=== PATIENT | male | born 1940 | race Caucasian/White ===

== ENCOUNTER → 2023-02-15 | Outpatient (CLI) | payer MEDICARE, BC ==
--- NOTE | 2023-02-15 12:29 | CT ---
EXAMINATION TYPE: CT left knee - [facility] Protocol DATE OF EXAM: 02/15/2023 COMPARISON: None HISTORY: 82-year-old male pre-op left total knee TECHNIQUE: CT for surgical planning purposes. Scanning through the pelvis, left knee, and both ankles with coronal and sagittal reconstructions. CT DLP: 720 mGycm Automated exposure control for dose reduction was used. FINDINGS: Partially visualized fatty umbilical hernia. There is herniation of the anterior dome of the bladder into an indirect right inguinal hernia. Prostatomegaly a 6.1 cm. Mild degenerative change of both hips. Osteopenia. Suspected left L5 hemisacralization. Moderate joint effusion at the knee. Tricompartmental osteoarthrosis. Posterior loose body measuring up to 1.9 cm. There is a Gagnon's cyst measuring nearly 5 cm and containing a 1 cm loose body. General ized soft tissue swelling. IMPRESSION: IMAGING FOR SURGICAL PLANNING PURPOSES. ADVANCED TRICOMPARTMENTAL OSTEOARTHROSIS LEFT KNEE. A 5 CM BA KER CYST CONTAINING A 1 CM LOOSE BODY. 2. NOTE AN INCIDENTAL RIGHT-SIDED INDIRECT INGUINAL HERNIA CONTAINING A 5 TO 6 CM LENGTH OF RIGHT-SASCHA ED BLADDER FUNDUS. PROSTATOMEGALY. SUSPECT A LEFT L5 HEMISACRALIZATION.
== END | disposition home or self-care (01) ==
LOC: RADCTMAIN 10:39
PROVIDERS: ATTEND Orthopaedic Surgery
DX: Z01.818 Encounter for other preprocedural examination (principal); M17.12 Unilateral primary osteoarthritis, left knee; M71.22 Synovial cyst of popliteal space [Baker], left knee; K40.90 Unilateral inguinal hernia, without obstruction or gangrene, not specified as recurrent; N40.0 Benign prostatic hyperplasia without lower urinary tract symptoms

== ENCOUNTER → 2023-02-15 | Outpatient (CLI) | payer MEDICARE, BC ==
[2023-02-15 13:56] LABS: INR 1.1 (<1.2); Prothrombin Time 11.1 sec (9.0-12.0)
[2023-02-15 16:51] LABS: Appearance,Urine Clear (Clear); Bilirubin,Urine Negative (Negative); Blood,Urine Negative (Negative); Color,Urine Yellow (Yellow); Ketones,Urine Negative (Negative); Nitrite,Urine Negative (Negative); PH, Urine 7.5; Specific Gravity,Urine 1.012 (1.001-1.030); Urobilinogen,Urine 0.2
[2023-02-15 21:45] LABS: HCT 41.9 % (39.6-50.0); HGB 13.3 d/dL (12.0-15.0); MCH 30.7 pg (27.0-32.0); MCHC 31.7 d/dL (32.0-37.0); MCV 96.8 FL (80.0-97.0); Mean Platelet Volume 10.7 FL (9.5-12.2); NRBC Per 100 WBC 0 X 10*3/uL (0.00-0.01); Platelet Count 246 X 10*3/uL (140-440); RBC 4.33 X 10*6/uL (4.40-5.60); RDW 14.4 % (11.5-14.5); WBC 7.25 X 10*3/uL (4.50-10.00)
[2023-02-16 02:36] LABS: ALT 26 U/L (10-49); AST 24 U/L (14-35); Albumin 4.1 d/dL (3.8-4.9); Albumin/Globulin Ratio 1.86 Ratio (1.60-3.17); Alkaline Phosphatase 75 U/L (41-126); Calcium 9.5 mg/dL (8.7-10.3); Carbon Dioxide 27.7 mmol/L (21.6-31.8); Chloride 102 mmol/L (96-109); Globulin 2.2 d/dL (1.6-3.3); Glucose 83 mg/dL (70-110); Sodium 140 mmol/L (135-145); Total Bilirubin 0.6 mg/dL (0.3-1.2); Total Protein 6.3 d/dL (6.2-8.2)
== END | disposition home or self-care (01) ==
LOC: LABPAT 11:04
PROVIDERS: ATTEND Orthopaedic Surgery
DX: Z01.812 Encounter for preprocedural laboratory examination (principal); M17.12 Unilateral primary osteoarthritis, left knee; I45.10 Unspecified right bundle-branch block; R00.1 Bradycardia, unspecified; R94.31 Abnormal electrocardiogram [ECG] [EKG]
CPT/HCPCS: 80053; 81003; 85027; 85610; 85730; 87070; 93005

== ENCOUNTER 2023-02-27 11:13 | Inpatient (IN) | payer MEDICARE, BC ==
[~2023-02-27 11:13] MED LIST: ACETAMINOPHEN TAB 500 MG TAB PO PRN; DEXAMETHASONE SOD PHOSPHATE 10 MG/ML 1 ML VIAL IV PRN; DOCUSATE 100 MG CAP PO PRN; FAMOTIDINE 20 MG/2 ML VIAL IVP PRN; HYDROmorphone 0.5 MG/0.5 ML SYRINGE IVP PRN; KETOROLAC 15 MG/ML 1 ML VIAL IVP PRN; ONDANSETRON 4 MG/2 ML VIAL IVP PRN; ROPIVACAINE/EPI/CLONIDINE/KET 50 ML SYRINGE MISCELLANE PRN; TRANEXAMIC 1,000 MG/100ML-NACL 1,000 MG in SALINE 1 100ML.BAG IV PRN; TRANEXAMIC 1,000 MG/100ML-NACL 1,000 MG in SALINE 1 100ML.BAG IVPB PRN; oxyCODONE ER 10 MG TAB.ER.12H PO PRN
[2023-02-27] MEDS: LACTATED RINGERS 1,000 ML IV SCH ×2 (11:55→18:19)
[2023-02-27] MEDS ORDERED: METOCLOPRAMIDE 5 MG/ML 2 ML VIAL ONE (12:00)
[2023-02-27] MEDS ORDERED: DEXAMETHASONE SOD PHOSPHATE 4 MG/ML 1 ML VIAL IVP ONE (12:28)
[2023-02-27] MEDS ORDERED: MIDAZOLAM 2 MG/2 ML VIAL IV ONE (12:35)
[2023-02-27] MEDS ORDERED: KETAMINE 10 MG/ML 20 ML VIAL ONE (13:20)
[2023-02-27] MEDS ORDERED: TRANEXAMIC 1,000 MG/100ML-NACL PREMIX BAG ONE (13:20)
[2023-02-27] MEDS ORDERED: GLYCOPYRROLATE 0.2 MG/ML 2 ML VIAL ONE (13:20)
[2023-02-27] MEDS ORDERED: MIDAZOLAM 2 MG/2 ML VIAL ONE (13:20)
[2023-02-27] MEDS ORDERED: fentaNYL (PF) 50 MCG/ML 2 ML AMP ONE (13:20)
[2023-02-27] MEDS ORDERED: DEXAMETHASONE SOD PHOSPHATE 4 MG/ML 1 ML VIAL ONE (13:20)
[2023-02-27] MEDS ORDERED: ROPIVACAINE 5 MG/ML 30 ML VIAL ONE (13:20)
[2023-02-27] MEDS ORDERED: HYDROcodone/APAP 5-325MG 1 EACH TAB PO PRN (16:09)
[2023-02-27] MEDS ORDERED: NALOXONE 0.4 MG/ML 1 ML VIAL IV PRN (16:09)
[2023-02-27] MEDS ORDERED: HYDROmorphone 0.5 MG/0.5 ML SYRINGE IVP PRN ×2 (16:09)
[2023-02-27] MEDS ORDERED: ONDANSETRON 4 MG/2 ML VIAL IVP PRN (16:09)
--- NOTE | 2023-02-27 16:14 | P.OP ---
Date of Procedure: 02/27/23 Preoperative Diagnosis: Severe left knee osteoarthritis Postoperative Diagnosis: Same Procedure(s) Performed: Left total knee arthroplasty Implants: 1. Ballinger Triathlon CR Femur Size #5 2. Ballinger Triathlon [place] Tibial Base Size #4 3. Ballinger Triathlon CS poly Size #9 4. Richard Triathlon all poly patella, Size #32 Anesthesia: regional, spinal Surgeon: Armin Guo Latex Dipper #1: Mary Daniel Estimated Blood Loss (ml): 100 IV fluids (ml): 900 Pathology: none sent Condition: stable Disposition: PACU Indications for Procedure: I met with the patient preoperatively in the office setting and discussed treatment of their symptomatic knee arthritis. They failed a long course of nonsurgical treatment and elected to proceed with an elective total knee replacement. I discussed the potential risks and complications at length and gave them ample time to ask questions. Risks discussed included: risks from anesthesia, superficial site surgical infection, acute and/or chronic periprosth etic joint infection, delayed wound healing, drainage, wound necrosis, instability, stiffness, stiffness requiring manipulation and/or revision surgery, damage to local blood vessels or nerves, aseptic loosening of the implants, extensor mechanism issues including disruption, patellar maltracking, avascular necrosis etc., continued or worsened knee pain, generalized dissatisfaction with surgical outcome, need for revision surgery, an inability to regain preinjury level of function, DVT, PE, other medical complications, and possibly loss of life or limb. The patient voiced their understanding that while these are the most common complications other less common complications are possible. They provided both their verbal and written consent to go forward with surgery. Description of Procedure: The patient was identified in preoperative holding and the correct operative extremity was verified and marked with a marker. I reviewed the consent form with the patient at length. All of their questions were answered. The patient was given a block by anesthesia. They were then brought back to the operating room. They were transferred onto the operating room table where a general anesthetic, preoperative antibiotics, and tranexamic acid were administered by anesthesia. A tourniquet was applied to the proximal aspect of the operative extremity. The contralateral extremity was padded under the heel and secured to the operating room table with a nonsterile blue towel and tape. The ipsilateral arm was carefully draped across the patient's chest and secured with a pillow and foam. A post was applied over the lateral aspect of the ipsilateral thigh and a bolster was placed under the ipsilateral foot. I verified that the operative extremity was stable and the knee was flexed to 90. The operative extremity was then placed in a leg torres, nonsterile drapes were applied, and the extremity was prepped and draped sterilely in the standard sterile fashion. Prior to starting surgery timeout was performed identifying the correct patient, operative extremity, and procedure. The leg was then elevated, exsanguinated with an Esmarch bandage, and the tourniquet was inflated. An anterior midline incision was made sharply with a scalpel. Once I had dissected deep to the superficial fascial layer medial and lateral flaps were elevated. A medial parapatellar arthrotomy was created. Upon opening the knee joint there were diffuse arthritic changes in all 3 compartments. The anterior horn of the medial meniscus were sharply released and a medial release was performed around the posterior medial corner of the knee to facilitate retractor placement. The fat pad was excised with electrocautery. The patella was found to be severely arthritic and a provisional cut was made with a sagittal saw to facilitate mobilization of the extensor mechanism during the procedure. Remnants of the ACL and PCL were then excised from the notch. 4 mm pins were then placed within the incision in the medial distal femur and proximal tibia. Arrays were applied to the pins and I verified they were completely tightened. The knee was then registered with the [employer] robot and manipulations in implant position were made to balance the knee and opitmize implant position. Using the Miles robotic saw all cuts were made in accordance with our plan. After all bony fragments had been removed the cuts were verified with the planar probe. The tibia was then subluxed forward and sized. The knee was brought into flexion and a lamina commission clerk was placed to allow removal of the meniscal remnants both medially and laterally as well as posterior osteophytes. Local anesthetic was then infiltrated around the joint capsule. Trial implants were then placed within the knee. Range of motion and collateral ligament tension was then evaluated. Adjustments in implant size and position were then made accordingly. Once the knee was felt to be appropriately balanced the Miles pins were removed. The patella was then recut, sized, and punched. A trial patellar button was then placed. With the trial components in place, the patella tracked midline. The femur was then drilled and the trial component removed. The trial tibial component was then appropriately rotated, pinned, and prepared for the keel. All trial components were then removed from the knee. The knee was thoroughly irrigated with pulsatile lavage. Cement was prepared via vacuum mixing in a bowl on the back table. I then hand pressurized cement into the femur and tibia and placed the implants beginning with the tibial base tray and poly liner, femoral component, and finally the patellar button. All extruded cement was removed including from the pin sites. Once the cement had hardened the knee was evaluated one final time with the final polyethylene liner in place. The knee had full extension and flexion and felt stable to varus and valgus stress throughout the arc of motion. The tourniquet was released and with the tourniquet down the patella tracked midline. All bleeders were controlled with electrocautery. The knee was then soaked for 3 minutes with a dilute Betadine s oak. The knee was thoroughly irrigated using 3 L of sterile saline and pulsatile lavage. A deep drain was placed. The extensor mechanism was then reapproximated using pop off Vicryl sutures followed by a running barbed suture. The knee was then closed in layers with a 0 strata fix for the deep fascial layer, 2-0 strata fix for the superficial subcutaneous layer and Monocryl and Steri-Strips for the skin. A sterile dressing and drain sponge were applied. I verified that all instrument, sponge, and sharp counts were correct. The patient was then transferred off the operating room table, extubated, and brought to recovery having tolerated the procedure well. Mary Daniel PA-C was required as a skilled surveyor instrument assistant due to the complexity of the procedure for patient positioning, draping, retraction, placement of hardware, and closure of wound. PLAN: The patient can weight-bear as tolerated on the operative extremity. DVT prophylaxis with aspirin 81 mg twice a day based on preoperative risk stratification. Follow-up in the office in 2 weeks for wound check and x-rays of the knee including an AP and lateral.
--- NOTE | 2023-02-27 16:32 | XR ---
EXAMINATION TYPE: XR knee limited LT DATE OF EXAM: 02/27/2023 COMPARISON: NONE HISTORY: 82-year-old male evaluation for postoperative abnormality in alignment TECHNIQUE: 2 views FINDINGS: Images show placement of left total knee arthroplasty. Both distal femoral and proximal tib ial components of the prosthesis are well seated without periprosthetic fracture. Alignment grossly a natomic. Anterior soft tissue swelling with soft tissue air as well as intra-articular air related to recent operation. Surgical drain in place. IMPRESSION: Uncomplicated postoperative appearance left total knee arthroplasty.
[2023-02-27] MEDS: ASPIRIN 81 MG PO SCH (20:12)
[2023-02-27] MEDS: lisinopriL 10 MG TAB PO SCH (20:12)
[2023-02-27] MEDS: carvediloL 6.25 MG TAB PO SCH (20:12)
[2023-02-27] MEDS: SENNOSIDES-DOCUSATE SODIUM 1 EACH TAB PO SCH (20:12)
[2023-02-27] MEDS: TAMSULOSIN 0.4 MG CAP.ER.24H PO SCH (20:12)
[2023-02-27] MEDS: CITALOPRAM HYDROBROMIDE 20 MG TAB PO SCH (20:12)
--- NOTE | 2023-02-27 20:39 | P.ANPRN ---
Procedure Note - Anesthesia - Nerve Block Performed Left Adductor Canal Single Time Out Performed: Yes Date of Procedure: 02/27/23 Procedure Start Time: 12:34 Procedure Stop Time: 12:40 Location of Patient: PreOp Indication: Acute Post-Operative Pain, Requested by Surgeon Sedation Type: Sedate with meaningful contact maintained Preparation: Sterile Prep Position: Supine Needle Types: Pajunk Needle Gauge: 21 Ultrasound used to visualize needle placement: Yes Ultrasound used to observe medication spread: Yes Blood Aspirated: No Resistance on Injection: Normal Image Stored and Saved: Yes Events: Uneventful and Well Tolerated (Ropivacaine 0.5% 20 mL plus dexamethasone 4 mg)
--- NOTE | 2023-02-27 20:41 | P.ANPRN ---
Procedure Note - Anesthesia - Nerve Block Performed Left iPack Single Time Out Performed: Yes Date of Procedure: 02/27/23 Procedure Start Time: 12:41 Procedure Stop Time: 12:44 Location of Patient: PreOp Indication: Acute Post-Operative Pain, Requested by Surgeon Sedation Type: Sedate with meaningful contact maintained Preparation: Sterile Prep Position: Supine Needle Types: Pajunk Needle Gauge: 21 Ultrasound used to visualize needle placement: Yes Ultrasound used to observe medication spread: Yes Blood Aspirated: No Pain Paresthesia on Injection Noted: No Resistance on Injection: Normal Image Stored and Saved: Yes Events: Uneventful and Well Tolerated (Ropivacaine 0.5% 20 mL plus dexamethasone 4 mg)
[2023-02-28] MEDS: LACTATED RINGERS 1,000 ML IV SCH ×3 (02:47→12:37)
[2023-02-28] MEDS: HYDROcodone/APAP 5-325MG 1 EACH TAB PO PRN ×3 (07:53→22:34)
[2023-02-28] MEDS: ASPIRIN 81 MG PO SCH ×2 (07:55→21:13)
[2023-02-28] MEDS: MULTIVITAMINS, THERA 1 EACH TAB PO SCH (07:55)
[2023-02-28] MEDS: lisinopriL 10 MG TAB PO SCH (07:55)
[2023-02-28] MEDS: carvediloL 6.25 MG TAB PO SCH ×2 (07:55→17:15)
[2023-02-28] MEDS: CITALOPRAM HYDROBROMIDE 20 MG TAB PO SCH (07:55)
[2023-02-28] MEDS: PANTOPRAZOLE 40 MG TABLET PO SCH (07:55)
[2023-02-28] MEDS: TAMSULOSIN 0.4 MG CAP.ER.24H PO SCH (07:55)
--- NOTE | 2023-02-28 08:30 | P.PN ---
Subjective Progress Note Date: 02/28/23 This patient is an 82- year old male who is status-post left total knee arthroplasty on 02/27/23. Today its post-operative day #1. Patient is examined bedside with Dr. Guo this morning. Patient is doing well and he states pain in the left knee is well- controlled at this time. He is planning to discharge to rehab. No complaints. Vital signs stable. Objective - Vital Signs Vital signs: Vital Signs Temp 98.0 F 02/28/23 07:18 Pulse 86 02/28/23 07:18 Resp 18 02/28/23 07:18 BP 146/77 02/28/23 07:18 Pulse Ox 95 02/28/23 07:18 FiO2 Intake & Output 02/27/23 02/28/23 02/28/23 18:59 06:59 18:59 Intake Total 950 650 Output Total 100 430 Balance 850 220 Weight 77 kg Intake: IV 950 Intake, IV Titration 650 Amount Lactated Ringers 1,000 ml 600 @ 100 mls/hr IV .Q10H [facility] Rx#:[id number] ceFAZolin 2 gm In Sodium 50 Chloride 0.9% 50 ml @ 100 mls/hr IVPB Q8HR [facility] Rx# :[id number] Output: Drainage 230 Left Knee 230 Urine 200 Estimated Blood Loss 100 Other: # Voids 0 - Exam On examination, patient is sitting up at bedside in no apparent distress. He is alert and orientated x3. On inspection of the left knee, there is a clean, dry, intact surgical dressing in place with no bleeding or drainage through the dressing. Motor and sensory function intact left lower extremity. LLE warm and well perfused. Calf soft and nontender. Hemovac drain is removed during examination. Assessment and Plan Assessment: Status-post left total knee arthroplasty on 02/27/23. Post-op day #1. Plan: - Weight bear to tolerance on operative extremity with a walker. - Keep operative dressing in place. Do not remove. - Ice to operative knee for swelling. - Physical therapy for gait and balance training. - Pain medication as needed. Aspirin 81mg BID for DVT prophylaxis. - 2 doses post-op IV antibiotics. - Internal medicine for bryson-op medical management. - Case management consulted for discharge planning. Patient would like to discharge to subacute rehab.
[2023-02-28 11:15] LABS: Basophils # (A) 0.02 X 10*3/uL (0.00-0.10); Basophils % (A) 0.1 %; Eosinophils # (A) 0.01 X 10*3/uL (0.04-0.35); Eosinophils % (A) 0.1 %; HGB 12.4 d/dL (12.0-15.0); Lymphocytes % (A) 3.8 %; MCH 31.7 pg (27.0-32.0); MCHC 33.5 d/dL (32.0-37.0); MCV 94.6 FL (80.0-97.0); Mean Platelet Volume 10.7 FL (9.5-12.2); Monocytes # (A) 1.22 X 10*3/uL (0.20-1.00); Monocytes % (A) 6.7 %; NRBC Per 100 WBC 0 X 10*3/uL (0.00-0.01); Neutrophils # (A) 16.24 X 10*3/uL (1.80-7.70); Neutrophils % (A) 88.8 %; Platelet Count 240 X 10*3/uL (140-440); RBC 3.91 X 10*6/uL (4.40-5.60); WBC 18.28 X 10*3/uL (4.50-10.00)
[2023-02-28] MEDS: hydrOXYzine pamoate 25 MG CAP PO PRN ×2 (13:33→22:34)
--- NOTE | 2023-02-28 14:00 | P.CONS ---
History of Present Illness - Reason for Consult Consult date: 02/28/23 Medical management - History of Present Illness History of present illness; patient is an 82-year-old gentleman with past me dical history significant for hypertension, osteoarthritis who presented to the hospital for elective left total knee arthroplasty. Patient was being seen by orthopedic in outpatient settings for left knee pain, all conservative measures had failed. Patient was scheduled for left total knee arthroplasty. Postoperatively the medicine team was consulted for medical management REVIEW OF SYSTEMS: CONSTITUTIONAL: No fever, no malaise, no fatigue. HEENT: No recent visual problems or hearing problems. Denied any sore throat. CARDIOVASCULAR: No chest pain, orthopnea, PND, no palpitations, no syncope. PULMONARY: No shortness of breath, no cough, no hemoptysis. GASTROINTESTINAL: No diarrhea, no nausea, no vomiting, no abdominal pain. NEUROLOGICAL: No headaches, no weakness, no numbness. HEMATOLOGICAL: Denies any bleeding or petechiae. GENITOURINARY: Denies any burning micturition, frequency, or urgency. MUSCULOSKELETAL/RHEUMATOLOGICAL: Denies any joint pain, swelling, or any muscle pain. ENDOCRINE: Denies any polyuria or polydipsia. The rest of the 14-point review of systems is negative. PHYSICAL EXAMINATION: GENERAL: The patient is alert and oriented x3, not in any acute distress. Well developed, well nourished. HEENT: Pupils are round and equally reacting to light. EOMI. No scleral icterus. No conjunctival pallor. Normocephalic, atraumatic. No pharyngeal erythema. No thyromegaly. CARDIOVASCULAR: S1 and S2 present. No murmurs, rubs, or gallops. PULMONARY: Chest is clear to auscultation, no wheezing or crackles. ABDOMEN: Soft, nontender, nondistended, normoactive bowel sounds. No palpable organomegaly. MUSCULOSKELETAL: Left knee surgical incision seen EXTREMITIES: No cyanosis, clubbing, or pedal edema. NEUROLOGICAL: Gross neurological examination did not reveal any focal deficits. SKIN: No rashes. Assessment and plan Left knee osteoarthritis status post left total knee arthroplasty Hypertension BPH Leukocytosis could be reactive Monitor vital signs Monitor CBC Continue pain management per orthopedics Continue DVT prophylaxis per orthopedics PT and OT consulted Resume home meds Past Medical History Past Medical History: Hypertension, Osteoarthritis (OA), Prostate Disorder, Skin Disorder Additional Past Medical History / Comment(s): hx. hiatal hernia-has had 3 surgeries for, abrasion on left arm above wrist, woke up w/it-has bandage & has been cleaning, states no drainage of sx. of infection, ankle swelling History of Any Multi-Drug Resistant Organisms: None Reported Past Surgical History: Hernia Repair, Orthopedic Surgery Additional Past Surgical History / Comment(s): repair of hiatal hernia x3, kuldip. cataracts removed, Left knee replacement 02/27/23. Past Anesthesia/Blood Transfusion Reactions: No Reported Reaction Past Psychological History: Anxiety, Depression Smoking Status: Never smoker Past Alcohol Use History: Daily Additional Past Alcohol Use History / Comment(s): small glass of wine mixed w/up daily but none since Saturday Past Drug Use History: None Reported - Past Family History Mother Family Medical History: No Reported History Medications and Allergies Home Medications Medication Instructions Recorded Confirmed Type Acetaminophen [Tylenol Extra 500 mg PO Q6H PRN 02/26/23 02/27/23 History Strength] Citalopram Hydrobromide [CeleXA] 20 mg PO DAILY 02/26/23 02/27/23 History Furosemide [Lasix] 20 mg PO WE 02/26/23 02/27/23 History Multivitamins, Thera [Multivitamin 1 tab PO DAILY 02/26/23 02/27/23 History (formulary)] Tamsulosin HCl [Flomax] 0.4 mg PO DAILY 02/26/23 02/27/23 History carvediloL [Coreg] 6.25 mg PO BID 02/26/23 02/27/23 History lisinopriL [Zestril] 10 mg PO DAILY 02/26/23 02/27/23 History Aspirin 81 mg PO BID 30 Days #60 tab 02/28/23 Rx Diclofenac Sodium [Voltaren] 75 mg PO BID 30 Days #60 tab 02/28/23 Rx Docusate [Colace] 100 mg PO BID #60 capsule 02/28/23 Rx Omeprazole 40 mg PO DAILY 30 Days #30 cap 02/28/23 Rx Allergies Allergy/AdvReac Type Severity Reaction Status Date / Time Penicillins Allergy swelling,redness, Verified 02/26/23 08:28 itching Sulfa (Sulfonamide Allergy Unknown Verified 02/26/23 08:28 Antibiotics) Physical Exam Vitals: Vital Signs Temp Pulse Pulse Resp BP BP Pulse Ox 02/28/23 11:04 18 02/28/23 07:18 98.0 F 86 18 146/77 95 02/28/23 01:55 98.3 F 79 16 126/74 92 L 02/27/23 19:00 71 121/71 92 L 02/27/23 18:45 72 115/71 92 L 02/27/23 18:30 67 117/73 93 L 02/27/23 18:15 72 122/73 94 L 02/27/23 18:00 70 133/80 91 L 02/27/23 17:45 77 137/83 94 L 02/27/23 17:30 83 132/80 94 L 02/27/23 17:15 71 134/68 94 L 02/27/23 17:00 97.8 F 74 142/75 94 L 02/27/23 16:31 59 L 16 132/68 95 02/27/23 16:16 57 L 16 140/71 95 02/27/23 16:01 97.3 F L 64 14 147/69 96 Intake and Output 02/27/23 02/28/23 02/28/23 22:59 06:59 14:59 Intake Total 0 650 Output Total 190 340 100 Balance -190 310 -100 Intake: IV 0 Intake, IV Titration 650 Amount Lactated Ringers 1,000 ml 600 @ 100 mls/hr IV .Q10H [facility] Rx#:[id number] ceFAZolin 2 gm In Sodium 50 Chloride 0.9% 50 ml @ 100 mls/hr IVPB Q8HR [facility] Rx# :[id number] Output: Drainage 90 140 100 Left Knee 90 140 100 Urine 200 Estimated Blood Loss 100 Other: Voiding Method Toilet # Voids 0 Weight 77 kg Results CBC & Chem 7: 02/28/23 07:19 Labs: Abnormal Lab Results - Last 24 Hours (Table) 02/28/23 Range/Units 07:19 WBC 18.28 H (4.50-10.00) X 10*3/uL RBC 3.91 L (4.40-5.60) X 10*6/uL Hct 37.0 L (39.6-50.0) % Neutrophils # 16.24 H (1.80-7.70) X 10*3/uL Lymphocytes # 0.70 L (0.90-5.00) X 10*3/uL Monocytes # 1.22 H (0.20-1.00) X 10*3/uL Eosinophils # 0.01 L (0.04-0.35) X 10*3/uL
[2023-02-28] MEDS: HYDROmorphone 0.5 MG/0.5 ML SYRINGE IVP PRN (21:10)
[2023-02-28] MEDS: SENNOSIDES-DOCUSATE SODIUM 1 EACH TAB PO SCH (21:13)
[2023-03-01] MEDS: HYDROmorphone 0.5 MG/0.5 ML SYRINGE IVP PRN (04:11)
[2023-03-01] MEDS: LACTATED RINGERS 1,000 ML IV SCH ×3 (08:05→08:06)
[2023-03-01] MEDS: lisinopriL 10 MG TAB PO SCH (08:56)
[2023-03-01] MEDS: HYDROcodone/APAP 5-325MG 1 EACH TAB PO PRN (08:56)
[2023-03-01] MEDS: hydrOXYzine pamoate 25 MG CAP PO PRN ×3 (08:56→20:14)
[2023-03-01] MEDS: ASPIRIN 81 MG PO SCH ×2 (08:56→20:14)
[2023-03-01] MEDS: carvediloL 6.25 MG TAB PO SCH ×2 (08:57→17:15)
[2023-03-01] MEDS: MULTIVITAMINS, THERA 1 EACH TAB PO SCH (08:57)
[2023-03-01] MEDS: CITALOPRAM HYDROBROMIDE 20 MG TAB PO SCH (08:57)
[2023-03-01] MEDS: PANTOPRAZOLE 40 MG TABLET PO SCH (08:57)
[2023-03-01] MEDS: TAMSULOSIN 0.4 MG CAP.ER.24H PO SCH (08:57)
[2023-03-01] MEDS ORDERED: HYDROcodone/APAP 7.5-325MG 1 EACH TAB PO PRN (10:31)
--- NOTE | 2023-03-01 11:02 | P.PN ---
Subjective Progress Note Date: 03/01/23 This patient is an 82- year old male who is status-post left total knee arthroplasty on 02/27/23. Today its post-operative day #2. Patient is examined bedside this morning. Physical therapy is currently working with patient. Per PT, patient was unstable while ambulating yesterday. Otherwise patient states he is doing well. Pain is well-controlled at this time. No new complaints. Objective - Vital Signs Vital signs: Vital Signs Temp 98.4 F 03/01/23 07:34 Pulse 85 03/01/23 07:34 Resp 18 03/01/23 09:47 BP 184/89 03/01/23 07:34 Pulse Ox 93 L 03/01/23 07:34 FiO2 Intake & Output 02/28/23 03/01/23 03/01/23 18:59 06:59 18:59 Intake Total 250 Output Total 500 300 100 Balance -500 -300 150 Intake: Oral 250 Output: Drainage 100 Left Knee 100 Urine 400 300 100 Other: Voiding Method Toilet Toilet # Voids 1 1 - Exam On examination, patient is sitting up at bedside with physical therapy in no apparent distress. He is alert and orientated x3. On inspection of the left knee, there is a clean, dry, intact surgical dressing in place with no bleeding or drainage through the dressing. Small amount of dried blood over dressing at hemovac drain site. Motor and sensory function intact left lower extremity. LLE warm and well perfused. Calf soft and nontender. - Labs CBC & Chem 7: 02/28/23 07:19 Labs: Abnormal Lab Results - Last 24 Hours (Table) 02/28/23 Range/Units 07:19 WBC 18.28 H (4.50-10.00) X 10*3/uL RBC 3.91 L (4.40-5.60) X 10*6/uL Hct 37.0 L (39.6-50.0) % Neutrophils # 16.24 H (1.80-7.70) X 10*3/uL Lymphocytes # 0.70 L (0.90-5.00) X 10*3/uL Monocytes # 1.22 H (0.20-1.00) X 10*3/uL Eosinophils # 0.01 L (0.04-0.35) X 10*3/uL Assessment and Plan Assessment: Status-post left total knee arthroplasty on 02/27/23. Post-op day #2. Plan: - Weight bear to tolerance on operative extremity with a walker. - Keep operative dressing in place. Do not remove. - Ice to operative knee for swelling. - Physical therapy for gait and balance training. - Pain medication as needed, Newton increased to 7.5/325mg. Aspirin 81mg BID for DVT prophylaxis. - Internal medicine for bryson-op medical management. - Case management consulted for discharge planning. Anticipate discharge to rehab tomorrow.
[2023-03-01 11:22] LABS: Basophils # (A) 0.06 X 10*3/uL (0.00-0.10); Basophils % (A) 0.4 %; Eosinophils # (A) 0.55 X 10*3/uL (0.04-0.35); Eosinophils % (A) 3.8 %; HCT 37.5 % (39.6-50.0); HGB 12.5 d/dL (12.0-15.0); Lymphocytes # (A) 0.99 X 10*3/uL (0.90-5.00); Lymphocytes % (A) 6.9 %; MCH 31.8 pg (27.0-32.0); MCHC 33.3 d/dL (32.0-37.0); MCV 95.4 FL (80.0-97.0); Mean Platelet Volume 10.7 FL (9.5-12.2); Monocytes # (A) 1.44 X 10*3/uL (0.20-1.00); NRBC Per 100 WBC 0 X 10*3/uL (0.00-0.01); Neutrophils # (A) 11.27 X 10*3/uL (1.80-7.70); Neutrophils % (A) 78.4 %; Platelet Count 225 X 10*3/uL (140-440); RBC 3.93 X 10*6/uL (4.40-5.60); RDW 14.2 % (11.5-14.5); WBC 14.38 X 10*3/uL (4.50-10.00)
[2023-03-01 11:36] LABS: ALT 16 U/L (10-49); AST 22 U/L (14-35); Albumin 3.6 d/dL (3.8-4.9); Alkaline Phosphatase 65 U/L (41-126); BUN/Creat Ratio 36.86 Ratio (12.00-20.00); Blood Urea Nitrogen 25.8 mg/dL (9.0-27.0); Calcium 8.3 mg/dL (8.7-10.3); Carbon Dioxide 24.1 mmol/L (21.6-31.8); Chloride 98 mmol/L (96-109); Glucose 110 mg/dL (70-110); Potassium 4.5 mmol/L (3.5-5.5); Sodium 129 mmol/L (135-145); Total Bilirubin 0.9 mg/dL (0.3-1.2); Total Protein 5.6 d/dL (6.2-8.2)
[2023-03-01] MEDS: HYDROcodone/APAP 7.5-325MG 1 EACH TAB PO PRN ×2 (13:42→20:16)
--- NOTE | 2023-03-01 14:52 | P.PN ---
Subjective Progress Note Date: 03/01/23 patient is an 82-year-old gentleman with past medical history significant for hypertension, osteoarthritis who presented to the hospital for elective left total knee arthroplasty. Patient was being seen by orthopedic in outpatient settings for left knee pain, all conservative measures had failed. Patient was scheduled for left total knee arthroplasty. Postoperatively the medicine team was consulted for medical management 03/01. Patient seen and examined. Working with PT and OT. States left knee p ain is under control with pain medication REVIEW OF SYSTEMS: CONSTITUTIONAL: No fever, no malaise,. CARDIOVASCULAR: No chest pain, no palpitations, no syncope. PULMONARY: No shortness of breath, no cough, GASTROINTESTINAL: No diarrhea, no nausea, no vomiting, no abdominal pain. NEUROLOGICAL: No headaches, no weakness, PHYSICAL EXAMINATION: GENERAL: The patient is alert and oriented x3, not in any acute distress. Well developed, well nourished. HEENT: Pupils are round and equally reacting to light. EOMI. No scleral icterus. No conjunctival pallor. Normocephalic, atraumatic. No pharyngeal erythema. No thyromegaly. CARDIOVASCULAR: S1 and S2 present. No murmurs, rubs, or gallops. PULMONARY: Chest is clear to auscultation, no wheezing or crackles. ABDOMEN: Soft, nontender, nondistended, normoactive bowel sounds. No palpable organomegaly. MUSCULOSKELETAL: No joint swelling or deformity. Left knee surgical incision seen EXTREMITIES: No cyanosis, clubbing, or pedal edema. NEUROLOGICAL: Gross neurological examination did not reveal any focal deficits. SKIN: No rashes. Assessment and plan Left knee osteoarthritis status post left total knee arthroplasty Hypertension BPH Leukocytosis could be reactive Monitor vital signs Monitor CBC Monitor CMP Continue Coreg Continue lisinopril Continue pain management per orthopedics Continue DVT prophylaxis per orthopedics PT And OT recommended rehab Objective - Vital Signs Vital signs: Vital Signs Temp 98.4 F 03/01/23 07:34 Pulse 85 03/01/23 07:34 Resp 18 03/01/23 09:47 BP 184/89 03/01/23 07:34 Pulse Ox 93 L 03/01/23 07:34 FiO2 Intake & Output 02/28/23 03/01/23 03/01/23 18:59 06:59 18:59 Intake Total 250 Output Total 500 300 100 Balance -500 -300 150 Intake: Oral 250 Output: Drainage 100 Left Knee 100 Urine 400 300 100 Other: Voiding Method Toilet Toilet # Voids 1 1 - Labs CBC & Chem 7: 03/01/23 06:03 03/01/23 06:03 Labs: Abnormal Lab Results - Last 24 Hours (Table) 03/01/23 03/01/23 Range/Units 06:03 06:03 WBC 14.38 H (4.50-10.00) X 10*3/uL RBC 3.93 L (4.40-5.60) X 10*6/uL Hct 37.5 L (39.6-50.0) % Neutrophils # 11.27 H (1.80-7.70) X 10*3/uL Monocytes # 1.44 H (0.20-1.00) X 10*3/uL Eosinophils # 0.55 H (0.04-0.35) X 10*3/uL Sodium 129 L (135-145) mmol/L BUN/Creatinine Ratio 36.86 H (12.00-20.00) Ratio Calcium 8.3 L (8.7-10.3) mg/dL Total Protein 5.6 L (6.2-8.2) d/dL Albumin 3.6 L (3.8-4.9) d/dL
[2023-03-01] MEDS: SENNOSIDES-DOCUSATE SODIUM 1 EACH TAB PO SCH (20:14)
[2023-03-02] MEDS: HYDROcodone/APAP 7.5-325MG 1 EACH TAB PO PRN ×2 (02:08→10:47)
[2023-03-02] MEDS: hydrOXYzine pamoate 25 MG CAP PO PRN ×2 (02:08→10:46)
[2023-03-02 07:39] VITALS: BP 99/62; PULSE 82; RESP 18; TEMP 98
[2023-03-02] MEDS: lisinopriL 10 MG TAB PO SCH (08:20)
[2023-03-02] MEDS: MULTIVITAMINS, THERA 1 EACH TAB PO SCH (08:20)
[2023-03-02] MEDS: carvediloL 6.25 MG TAB PO SCH (08:20)
[2023-03-02] MEDS: ASPIRIN 81 MG PO SCH (08:20)
[2023-03-02] MEDS: PANTOPRAZOLE 40 MG TABLET PO SCH (08:20)
[2023-03-02] MEDS: TAMSULOSIN 0.4 MG CAP.ER.24H PO SCH (08:20)
[2023-03-02] MEDS: CITALOPRAM HYDROBROMIDE 20 MG TAB PO SCH (08:20)
--- NOTE | 2023-03-02 09:51 | P.DS ---
Providers Date of admission: 02/27/23 17:00 Expected date of discharge: 03/02/23 Attending physician: Armin Guo Consults: 02/27/23 18:07 Consult Physician Routine Consulting Provider: Tayler Ortiz Consult Reason/Comments: medical management Do you want consulting provider notified?: Yes Primary care physician: Samir Bassett - Discharge Diagnosis(es) (1) Osteoarthritis of left knee Current Visit: Yes Status: Acute (2) Status post total knee replacement, left Current Visit: Yes Status: Acute (3) Left knee pain Current Visit: Yes Status: Acute (4) Hypertension Current Visit: Yes Status: Acute (5) Leukocytosis Current Visit: Yes Status: Acute Hospital Course: This is a pleasant 82-year-old male who presented with severe left knee osteoarthritis who failed outpatient conservative therapy. He was admitted for a left total knee arthroplasty. The patient tolerated the procedure well and did well postoperatively. His left knee pain is well-controlled. He has been able to ambulates to the restroom. He is eating and voiding without difficulty. He feels his pain is well-controlled. He's ready for discharge to rehabilitation facility today. He has been approved for discharge. Condition on day of discharge stable. Patient was cleared preoperatively for surgery by Dr. Bassett. Patient currently denies any nausea, vomiting, fever, or chills. Patient may shower Optifoam dressing intact. Patient may remove Optifoam dressing intact until follow-up appointment in the office. Patient is encouraged to elevate the left lower extremity and may apply ice over the left knee as needed. He may weight-bear as tolerated on left lower extremity with the assistance of a walker. Patient will follow up at [facility] in 2 weeks for further evaluation. MAPS was previously reviewed. An "Opiod Start Talking" Form has been signed and placed in the patient's chart. A prescription has been written for hydrocodone 7.5 mg/325 mg, 1-2 tabs every 6 hours as needed for acute pain. Prescription has been written, signed, and placed in the patient's chart. Patient's other medical diagnoses include hypertension and postoperative leukocytosis. His WBC has reduced from 18 down to 14 this morning. Patient continues to be seen and examined by medicine. Patient must be cleared by medicine and medicine will complete med rec prior to discharge to rehab today. Physical Exam Total Knee Arthroplasty: Status post surgical day number 3 Patient is awake, alert, and oriented 3 Vital signs stable Good chest excursion with deep inspiration and expiration No signs or symptoms of DVT; no calf pain Dressing is clean, dry, and intact; no erythema, purulence, or signs of infection Patient has full foot and ankle motion without difficulty bilateral lower extremities Dorsiflexion, plantar flexion, and extensor hallucis longus positive sustained left lower extremity Neurovascular status left lower extremity intact Procedures: Left total knee arthroplasty Patient Condition at Discharge: Stable Plan - Discharge Summary Discharge Rx Participant: Yes New Discharge Prescriptions: New Omeprazole 40 mg PO DAILY 30 Days #30 cap Diclofenac Sodium [Voltaren] 75 mg PO BID 30 Days #60 tab HYDROcodone/APAP 7.5-325MG [[place] 7.5-325] 1 - 2 tab PO Q6H PRN 7 Days #32 tab PRN Reason: Pain Aspirin 81 mg PO BID 30 Days #60 tab Docusate [Colace] 100 mg PO BID #60 capsule No Action carvediloL [Coreg] 6.25 mg PO BID Multivitamins, Thera [Multivitamin (formulary)] 1 tab PO DAILY Acetaminophen [Tylenol Extra Strength] 500 mg PO Q6H PRN PRN Reason: Pain Citalopram Hydrobromide [CeleXA] 20 mg PO DAILY lisinopriL [Zestril] 10 mg PO DAILY Tamsulosin HCl [Flomax] 0.4 mg PO DAILY Furosemide [Lasix] 20 mg PO WE Discharge Medication List Acetaminophen [Tylenol Extra Strength] 500 mg PO Q6H PRN 02/26/23 [History] Citalopram Hydrobromide [CeleXA] 20 mg PO DAILY 02/26/23 [History] Furosemide [Lasix] 20 mg PO WE 02/26/23 [History] Multivitamins, Thera [Multivitamin (formulary)] 1 tab PO DAILY 02/26/23 [History] Tamsulosin HCl [Flomax] 0.4 mg PO DAILY 02/26/23 [History] carvediloL [Coreg] 6.25 mg PO BID 02/26/23 [History] lisinopriL [Zestril] 10 mg PO DAILY 02/26/23 [History] Aspirin 81 mg PO BID 30 Days #60 tab 02/28/23 [Rx] Diclofenac Sodium [Voltaren] 75 mg PO BID 30 Days #60 tab 02/28/23 [Rx] Docusate [Colace] 100 mg PO BID #60 capsule 02/28/23 [Rx] Omeprazole 40 mg PO DAILY 30 Days #30 cap 02/28/23 [Rx] HYDROcodone/APAP 7.5-325MG [[place] 7.5-325] 1 - 2 tab PO Q6H PRN 7 Days #32 tab 03/01/23 [Rx] Follow up Appointment(s)/Referral(s): Valentino Driscoll, [NON-STAFF] - As Needed Armin Guo MD [Medical Doctor] - 03/13/23 10:30 am Activity/Diet/Wound Care/Special Instructions: Weight bear to tolerance on operative extremity with a walker. Keep operative dressing in place until follow-up in the office. Call the office if dressing becomes saturated or falls off. May shower over dressing. Take pain medication as prescribed. Take aspirin 81mg BID x 4 weeks for blood clot prevention. Follow-up in the [facility] in [facility] at [facility] Call the office with any questions or concerns, Discharge Disposition: TRANSFER TO SNF/ECF
[2023-03-02 11:47] LABS: Basophils # (A) 0.03 X 10*3/uL (0.00-0.10); Basophils % (A) 0.2 %; Eosinophils # (A) 0.53 X 10*3/uL (0.04-0.35); Eosinophils % (A) 3.5 %; HCT 36.2 % (39.6-50.0); Lymphocytes # (A) 0.94 X 10*3/uL (0.90-5.00); Lymphocytes % (A) 6.1 %; MCH 31.3 pg (27.0-32.0); MCHC 33.1 d/dL (32.0-37.0); MCV 94.5 FL (80.0-97.0); Mean Platelet Volume 10.7 FL (9.5-12.2); Monocytes # (A) 1.36 X 10*3/uL (0.20-1.00); Monocytes % (A) 8.9 %; NRBC Per 100 WBC 0 X 10*3/uL (0.00-0.01); Neutrophils # (A) 12.39 X 10*3/uL (1.80-7.70); Neutrophils % (A) 80.9 %; Platelet Count 220 X 10*3/uL (140-440); RBC 3.83 X 10*6/uL (4.40-5.60); RDW 14.1 % (11.5-14.5); WBC 15.31 X 10*3/uL (4.50-10.00)
--- NOTE | 2023-03-02 14:17 | P.PN ---
Subjective Progress Note Date: 03/02/23 patient is an 82-year-old gentleman with past medical history significant for hypertension, osteoarthritis who presented to the hospital for elective left total knee arthroplasty. Patient was being seen by orthopedic in outpatient settings for left knee pain, all conservative measures had failed. Patient was scheduled for left total knee arthroplasty. Postoperatively the medicine team was consulted for medical management 03/01. Patient seen and examined. Working with PT and OT. States left knee p ain is under control with pain medication 03/02. Patient seen and examined. Patient medically stable for discharge to rehab REVIEW OF SYSTEMS: CONSTITUTIONAL: No fever, no malaise,. CARDIOVASCULAR: No chest pain, no palpitations, no syncope. PULMONARY: No shortness of breath, no cough, GASTROINTESTINAL: No diarrhea, no nausea, no vomiting, no abdominal pain. NEUROLOGICAL: No headaches, no weakness, PHYSICAL EXAMINATION: GENERAL: The patient is alert and oriented x3, not in any acute distress. Well developed, well nourished. HEENT: Pupils are round and equally reacting to light. EOMI. No scleral icterus. No conjunctival pallor. Normocephalic, atraumatic. No pharyngeal erythema. No thyromegaly. CARDIOVASCULAR: S1 and S2 present. No murmurs, rubs, or gallops. PULMONARY: Chest is clear to auscultation, no wheezing or crackles. ABDOMEN: Soft, nontender, nondistended, normoactive bowel sounds. No palpable organomegaly. MUSCULOSKELETAL: No joint swelling or deformity. Left knee surgical incision seen EXTREMITIES: No cyanosis, clubbing, or pedal edema. NEUROLOGICAL: Gross neurological examination did not reveal any focal deficits. SKIN: No rashes. Assessment and plan Left knee osteoarthritis status post left total knee arthroplasty Hypertension BPH Leukocytosis could be reactive Monitor vital signs Monitor CBC Monitor CMP Continue Coreg Continue lisinopril Continue pain management per orthopedics Continue DVT prophylaxis per orthopedics PT And OT recommended rehab, medically stable for discharge Objective - Vital Signs Vital signs: Vital Signs Temp 98.0 F 03/02/23 07:21 Pulse 82 03/02/23 07:21 Resp 18 03/02/23 07:21 BP 99/62 03/02/23 07:21 Pulse Ox 94 L 03/02/23 07:21 FiO2 Intake & Output 03/01/23 03/02/23 03/02/23 18:59 06:59 18:59 Intake Total 550 Output Total 100 1550 Balance 450 -1550 Intake: Oral 550 Output: Urine 100 1550 Other: Voiding Method Toilet # Voids 3 - Labs CBC & Chem 7: 03/02/23 04:33 03/01/23 06:03 Labs: Abnormal Lab Results - Last 24 Hours (Table) 03/02/23 Range/Units 04:33 WBC 15.31 H (4.50-10.00) X 10*3/uL RBC 3.83 L (4.40-5.60) X 10*6/uL Hct 36.2 L (39.6-50.0) % Neutrophils # 12.39 H (1.80-7.70) X 10*3/uL Monocytes # 1.36 H (0.20-1.00) X 10*3/uL Eosinophils # 0.53 H (0.04-0.35) X 10*3/uL
== END 2023-03-02 12:35 | DRG 470 ==
LOC: OR 11:13 → 4SSUR 16:01 → OR 17:00
PROVIDERS: ADMIT Orthopaedic Surgery; ATTEND Orthopaedic Surgery
PROC: 0SRD0J9 Replacement of Left Knee Joint with Synthetic Substitute, Cemented, Open Approach (ICD-10-PCS; principal; 2023-02-27 13:00)
DX: M17.12 Unilateral primary osteoarthritis, left knee (principal); I10 Essential (primary) hypertension; N40.0 Benign prostatic hyperplasia without lower urinary tract symptoms; D72.829 Elevated white blood cell count, unspecified; Z79.82 Long term (current) use of aspirin; Z79.899 Other long term (current) drug therapy; Z88.0 Allergy status to penicillin; Z88.2 Allergy status to sulfonamides
CPT/HCPCS: 64447; 64999; 80053; 85025

== ENCOUNTER 2023-03-11 17:52 | Inpatient (IN) | payer MEDICARE, BC ==
[2023-03-11] MEDS ORDERED: SODIUM CHLORIDE 0.9% 1,000 ML IV STA (18:54)
[2023-03-11 19:30] LABS: Basophils % (A) 0 %; Eosinophils % (A) 0 %; HCT 34.4 % (39.0-53.0); HGB 11.4 gm/dL (13.0-17.5); Lymphocytes # (A) 1.8 k/uL (1.0-4.8); Lymphocytes % (A) 8 %; MCH 31.9 pg (25.0-35.0); MCHC 33.2 g/dL (31.0-37.0); MCV 96.1 fL (80.0-100.0); Mean Platelet Volume 7.5; Monocytes # (A) 1.2 k/uL (0-1.0); Monocytes % (A) 6 %; Neutrophils # (A) 18.5 k/uL (1.3-7.7); Neutrophils % (A) 85 %; Platelet Count 573 k/uL (150-450); RBC 3.57 m/uL (4.30-5.90); RDW 13.6 % (11.5-15.5); WBC 21.7 k/uL (3.8-10.6)
--- NOTE | 2023-03-11 19:32 | ED ---
General Adult HPI - General Chief complaint: Weakness Stated complaint: JAKE Time Seen by Provider: 03/11/23 18:24 Source: patient Mode of arrival: wheelchair Limitations: physical limitation - History of Present Illness Initial comments: Dictation was produced using [employer] dictation software. please excuse any grammatical, word or spelling errors. Chief Complaint: 82-year-old male presents emergency department for low blood pressure History of Present Illness: 82-year-old male who recently had knee surgery. He was admitted to subacute rehab. He was just discharged from there 3 or 4 days ago previous at home was not given his home medications when his discharge. He has not been eating or drinking much really. Patient has a complaints. Home visiting nurse checked his vital signs thought that he was hypotensive with a blood pressure of 99 systolic. Patient does have a history of hypertension he takes blood pressure medications. The ROS documented in this emergency department record has been reviewed and confirmed by me. Those systems with pertinent positive or negative responses have been documented in the HPI. All other systems are other negative and/or noncontributory. - Related Data Home Medications Medication Instructions Recorded Confirmed Citalopram Hydrobromide [CeleXA] 20 mg PO DAILY 02/26/23 02/27/23 Furosemide [Lasix] 20 mg PO WE 02/26/23 02/27/23 Tamsulosin HCl [Flomax] 0.4 mg PO DAILY 02/26/23 02/27/23 carvediloL [Coreg] 6.25 mg PO BID 02/26/23 02/27/23 lisinopriL [Zestril] 10 mg PO DAILY 02/26/23 02/27/23 Allergies Allergy/AdvReac Type Severity Reaction Status Date / Time Penicillins Allergy swelling,redness, Verified 03/11/23 18:28 itching Sulfa (Sulfonamide Allergy Unknown Verified 03/11/23 18:28 Antibiotics) Review of Systems ROS Statement: Those systems with pertinent positive or pertinent negative responses have been documented in the HPI. ROS Other: All systems not noted in ROS Statement are negative. Past Medical History Past Medical History: Hypertension, Osteoarthritis (OA), Prostate Disorder, Skin Disorder Additional Past Medical History / Comment(s): hx. hiatal hernia-has had 3 surgeries for, abrasion on left arm above wrist, woke up w/it-has bandage & has been cleaning, states no drainage of sx. of infection, ankle swelling History of Any Multi-Drug Resistant Organisms: None Reported Past Surgical History: Hernia Repair, Orthopedic Surgery Additional Past Surgical History / Comment(s): repair of hiatal hernia x3, kuldip. cataracts removed, Left knee replacement 02/27/23. Past Anesthesia/Blood Transfusion Reactions: No Reported Reaction Past Psychological History: Anxiety, Depression Smoking Status: Never smoker Past Alcohol Use History: Daily Past Drug Use History: None Reported - Past Family History Mother Family Medical History: No Reported History General Exam - General Exam Comments Initial Comments: PHYSICAL EXAM: General Impression: Alert and oriented x3, not in acute distress HEENT: Normocephalic atraumatic, extra-ocular movements intact, pupils equal and reactive to light bilaterally, mucous membranes moist. Cardiovascular: Heart regular rate and rhythm Chest: Able to complete full sentences, no retractions, no tachypnea Abdomen: abdomen soft, non-tender, non-distended, no organomegaly Musculoskeletal: Pulses present and equal in all extremities, no peripheral edema Motor: no focal deficits noted Neurological: CN II-XII grossly intact, no focal motor or sensory deficits noted Skin: Intact with no visualized rashes, left knee surgical site clean dry and i ntact Psych: Normal affect and mood Limitations: physical limitation Course Vital Signs 03/11/23 03/11/23 18:17 18:23 Temperature 98.9 F 98.5 F Pulse Rate 53 L 109 H Respiratory 18 16 Rate Blood Pressure 90/44 95/74 O2 Sat by Pulse 99 97 Oximetry EKG Findings - EKG Comments: EKG Findings:: My EKG interpretation: Ventricular rate 101, A. fib,, QRS 90, QTC 410. No CT prolongation, no QTC prolongation, no ST or T-wave changes noted. EKG consistent with new-onset A. fib Medical Decision Making - Medical Decision Making Was pt. sent in by a medical professional or institution (, PA, MEDICAL RESEARCH TECH, urgent care, hospital, or custodial...) When possible be specific @ -No Did you speak to anyone other than the patient for history (EMS, parent, family, police, friend...)? What history was obtained from this source @ -No Did you review nursing and triage notes (agree or disagree)? Why? @ -I reviewed and agree with nursing and triage notes Were old charts reviewed (outside hosp., previous admission, EMS record, old EKG, old radiological studies, urgent care reports/EKG's, custodial records)? Report findings @ -No old charts were reviewed Differential Diagnosis (chest pain, altered mental status, abdominal pain women, abdominal pain men, vaginal bleeding, musculoskeletal, weakness, fever, dyspnea, syncope, headache, dizziness, GI bleed, back pain, seizure, CVA, palpatations, mental health)? @ -Differential Dizziness: Benign paroxysmal positional Vertigo, Menieres disease, otitis media, acoustic neuroma, vertebrobasilar insufficiency, cerebellar stroke, encephalitis, hypovolemic, arrhythmia, coronary artery syndrome, anemia, this is not meant to be an all-inclusive list EKG interpreted by me (3pts min.). @ -As above X-rays interpreted by me (1pt min.). @ -None done CT interpreted by me (1pt min.). @ -CT scan of the abdomen and pelvis shows large hepatic cyst, dilated esophagus. No signs of infection the abdomen U/S interpreted by me (1pt. min.). @ -None done What testing was considered but not performed or refused? (CT, X-rays, U/S, labs)? Why? @ -None What meds were considered but not given or refused? Why? @ -None Did you discuss the management of the patient with other professionals (professionals i.e. , PA, MEDICAL RESEARCH TECH, lab, RT, psych nurse, social sciences department chair, underwear trimmer, teacher, corporate officer, heel caser)? Give summary @ -Case discussed with Dr. Quiles for admission Was smoking cessation discussed for >3mins.? @ -No Was critical care preformed (if so, how long)? @ -yes, 33 minutes Were there social determinants of health that impacted care today? How? (Homelessness, low income, unemployed, alcoholism, drug addiction, transportation, low edu. Level, literacy, decrease access to med. care, long term, rehab)? @ -No Was there de-escalation of care discussed even if they declined (Discuss DNR or withdrawal of care, Hospice)? DNR status @ -No What co-morbidities impacted this encounter? (DM, HTN, Smoking, COPD, CAD, Cancer, CVA, ARF, Chemo, Hep., AIDS, mental health diagnosis, sleep apnea, morbid obesity)? @ -None Was patient admitted / discharged? Hospital course, mention meds given and route, prescriptions, significant lab abnormalities, going to OR and other pertinent info. @ -82-year-old male presents to the emergency department from home after home health care nurse performed vitals and he was slightly hypertensive. Patient recently discharged from subacute rehab. Vital signs upon arrival shows initial blood pressure 90/44. Repeat blood pressures were improved with systolics measured the 120s and 130s after IV fluids. Laboratory evaluation obtained. Leukocytosis of 21.7. Patient's history of leukocytosis though not as high. Coag panel is unremarkable. Metabolic panel shows mild hyponatremia. Troponin level is elevated at 0.043. EKG shows new onset atrial fibrillation. Patient not in RVR. He is started on heparin. Is unclear how long patient has been in atrial fibrillation. Does not take any anticoagulation medications. Computed tomography scan does not show any acute intra-abdominal infections however there is of note a dilated esophagus. States that several years ago he had esophageal surgery were mesh was placed. He has been having some bouts of nausea. Patient reevaluated at bedside at 10:15 PM on August it. Patient be admitted with consultation to cardiology and gastroenterology Undiagnosed new problem with uncertain prognosis? @ -No Drug Therapy requiring intensive monitoring for toxicity (Heparin, Nitro, Insulin, Cardizem)? @ -No Were any procedures done? @ -No Diagnosis/symptom? Acute, or Chronic, or Acute on Chronic? Uncomplicated (without systemic symptoms) or Complicated (systemic symptoms)? @ -1. New-onset A. fib, 2. Dilated esophagus Side effects of treatment? @ -No Exacerbation, Progression, or Severe Exacerbation? @ -No Poses a threat to life or bodily function? How? (Chest pain, [place], [place], pneumonia, PE, COPD, DKA, ARF, appy, cholecystitis, CVA, Diverticulitis, Homicidal, Suicidal, threat to staff... and all critical care pts) @ -yes - Lab Data Result diagrams: 03/11/23 18:35 03/11/23 18:35 Lab Results 03/11/23 03/11/23 03/11/23 Range/Units 18:35 18:35 18:35 WBC 21.7 H (3.8-10.6) k/uL RBC 3.57 L (4.30-5.90) m/uL Hgb 11.4 L (13.0-17.5) gm/dL Hct 34.4 L (39.0-53.0) % MCV 96.1 (80.0-100.0) fL MCH 31.9 (25.0-35.0) pg MCHC 33.2 (31.0-37.0) g/dL RDW 13.6 (11.5-15.5) % Plt Count 573 H (150-450) k/uL MPV 7.5 Neutrophils % 85 % Lymphocytes % 8 % Monocytes % 6 % Eosinophils % 0 % Basophils % 0 % Neutrophils # 18.5 H (1.3-7.7) k/uL Lymphocytes # 1.8 (1.0-4.8) k/uL Monocytes # 1.2 H (0-1.0) k/uL Eosinophils # 0.0 (0-0.7) k/uL Basophils # 0.0 (0-0.2) k/uL PT 11.5 (9.0-12.0) sec INR 1.1 (<1.2) APTT 23.1 (22.0-30.0) sec Sodium 131 L (137-145) mmol/L Potassium 4.0 (3.5-5.1) mmol/L Chloride 95 L (98-107) mmol/L Carbon Dioxide 30 (22-30) mmol/L Anion Gap 6 mmol/L BUN 51 H (9-20) mg/dL Creatinine 1.10 (0.66-1.25) mg/dL Est GFR (CKD-EPI)AfAm 71 (>60 ml/min/1.73 sqM) Est GFR (CKD-EPI)NonAf 61 (>60 ml/min/1.73 sqM) Glucose 96 (74-99) mg/dL Calcium 8.7 (8.4-10.2) mg/dL Magnesium 2.1 (1.6-2.3) mg/dL Total Bilirubin 0.7 (0.2-1.3) mg/dL AST 28 (17-59) U/L ALT 28 (4-49) U/L Alkaline Phosphatase 87 (38-126) U/L Troponin I (0.000-0.034) ng/mL Total Protein 5.4 L (6.3-8.2) g/dL Albumin 2.9 L (3.5-5.0) g/dL 03/11/23 Range/Units 18:35 WBC (3.8-10.6) k/uL RBC (4.30-5.90) m/uL Hgb (13.0-17.5) gm/dL Hct (39.0-53.0) % MCV (80.0-100.0) fL MCH (25.0-35.0) pg MCHC (31.0-37.0) g/dL RDW (11.5-15.5) % Plt Count (150-450) k/uL MPV Neutrophils % % Lymphocytes % % Monocytes % % Eosinophils % % Basophils % % Neutrophils # (1.3-7.7) k/uL Lymphocytes # (1.0-4.8) k/uL Monocytes # (0-1.0) k/uL Eosinophils # (0-0.7) k/uL Basophils # (0-0.2) k/uL PT (9.0-12.0) sec INR (<1.2) APTT (22.0-30.0) sec Sodium (137-145) mmol/L Potassium (3.5-5.1) mmol/L Chloride (98-107) mmol/L Carbon Dioxide (22-30) mmol/L Anion Gap mmol/L BUN (9-20) mg/dL Creatinine (0.66-1.25) mg/dL Est GFR (CKD-EPI)AfAm (>60 ml/min/1.73 sqM) Est GFR (CKD-EPI)NonAf (>60 ml/min/1.73 sqM) Glucose (74-99) mg/dL Calcium (8.4-10.2) mg/dL Magnesium (1.6-2.3) mg/dL Total Bilirubin (0.2-1.3) mg/dL AST (17-59) U/L ALT (4-49) U/L Alkaline Phosphatase (38-126) U/L Troponin I 0.043 H* (0.000-0.034) ng/mL Total Protein (6.3-8.2) g/dL Albumin (3.5-5.0) g/dL Disposition Clinical Impression: New onset a-fib, Dilatation of esophagus Disposition: ADMITTED IP TO THIS HOSP Condition: Fair Referrals: Samir Bassett MD [Primary Care Provider] - 1-2 days Decision Time: 22:00
[2023-03-11 19:45] LABS: ALT 28 U/L (4-49); AST 28 U/L (17-59); African American GFR (CKD) 71 (>60 ml/min/1.73 sqM); Albumin 2.9 g/dL (3.5-5.0); Alkaline Phosphatase 87 U/L (38-126); Anion Gap 6 mmol/L; Blood Urea Nitrogen 51 mg/dL (9-20); Calcium 8.7 mg/dL (8.4-10.2); Carbon Dioxide 30 mmol/L (22-30); Chloride 95 mmol/L (98-107); Glucose 96 mg/dL (74-99); INR 1.1 (<1.2); Magnesium 2.1 mg/dL (1.6-2.3); Non-African American GFR(CKD) 61 (>60 ml/min/1.73 sqM); Partial Thromboplastin Time 23.1 sec (22.0-30.0); Prothrombin Time 11.5 sec (9.0-12.0); Sodium 131 mmol/L (137-145); Total Bilirubin 0.7 mg/dL (0.2-1.3); Total Protein 5.4 g/dL (6.3-8.2)
[2023-03-11] MEDS ORDERED: ONDANSETRON 4 MG/2 ML VIAL IVP STA (20:22)
--- NOTE | 2023-03-11 21:58 | CT ---
EXAMINATION TYPE: CT abdomen pelvis w con CT DLP: 1050 mGycm, Automated exposure control for dose reduction was used. DATE OF EXAM: 03/11/2023 9:14 PM COMPARISON: MRI liver 03/21/2013,. CLINICAL INDICATION:Male, 82 years old with history of abdominal pain, hypotension; Abdominal pain, n ausea, vomiting, constipation. TECHNIQUE: Axial CT of the abdomen and pelvis. Sagittal and coronal reformats were created on a [employer] workstation. Contrast used:100 ml mL of Isovue 300 with IV Contrast, (none if empty) Oral contrast used: without Oral Contrast (none if empty) FINDINGS: LOWER CHEST: Small left pleural effusion with associated atelectasis. ABDOMEN LIVER: Large hepatic cyst measuring up to 13.5 cm. GALLBLADDER AND BILE DUCTS: Unremarkable. PANCREAS: Unremarkable. SPLEEN: Unremarkable. ADRENAL GLANDS: Unremarkable. KIDNEYS AND URETERS: No evidence of hydronephrosis. Nonobstructing left calculus measuring 4 mm. Bila teral renal cysts are present. PELVIS BLADDER: Unremarkable REPRODUCTIVE: Prostate gland is enlarged measuring up to 5.5 cm. Left scrotal sac r fat-containing le shashi likely representing a lipoma measuring 6.2 x 2.4 cm. ABDOMEN & PELVIS STOMACH AND BOWEL: Partially visualized large fluid collection could relate to the esophagus dilated right above the diaphragm measuring up to 13.3 x 8.8 cm. Postsurgical changes in the upper abdomen ne ar this location is also present. The appendix is normal. PERITONEUM/RETROPERITONEUM: No evidence of pneumoperitoneum or free fluid. VASCULATURE: Moderate atherosclerotic calcifications are present throughout the abdominal aorta and i ts branches. No evidence of aortic aneurysm. MUSCULOSKELETAL: No acute osseous abnormalities. Moderate disc degeneration changes are present throu ghout the thoracolumbar spine. LYMPH NODES: No gross evidence for lymphadenopathy. SOFT TISSUE/ABDOMINAL WALL: Right fat containing inguinal hernia. Fat-containing umbilical hernia. IMPRESSION: 1. Massively dilated distal esophagus in the inferiorly with ingested contents. Findings could be se condary to postsurgical obstruction given multiple surgical clips at the gastroesophageal junction ve rsus secondary to achalasia. Further evaluation of the esophagus is recommended. Consider nasogastric tube for evacuation of this distal esophagus. 2. Prostatomegaly correlate serum PSA. 3. Nonobstructing left 4 mm calculus.
[2023-03-11] MEDS ORDERED: NALOXONE 0.4 MG/ML 1 ML VIAL IV PRN (22:08)
[2023-03-11] MEDS ORDERED: ONDANSETRON 4 MG/2 ML VIAL IVP PRN (22:08)
[2023-03-11] MEDS ORDERED: HEPARIN SODIUM 1,000 UN/ML (10ML VL) IV PRN (22:10)
[2023-03-11] MEDS ORDERED: HEPARIN SODIUM 1,000 UN/ML (10ML VL) IV ONE (22:10)
[2023-03-11] MEDS ORDERED: HEPARIN SOD,PORK IN 0.45% NACL 25,000 UNIT in 0.45% NACL 1 250ML.BAG IV SCH (22:15)
[2023-03-12] MEDS: SODIUM CHLORIDE 0.9% 1,000 ML IV SCH ×2 (05:34)
[2023-03-12] MEDS: MORPHINE SULFATE 4 MG/ML SYRINGE IV PRN ×2 (06:02→13:53)
[2023-03-12] MEDS ORDERED: polyethylene glycoL 3350 17 GM POWD.PACK PO SCH (09:00)
[2023-03-12] MEDS ORDERED: PANTOPRAZOLE 40 MG/10 ML VIAL IVP SCH (09:00)
[2023-03-12] MEDS ORDERED: METOPROLOL TARTRATE 25 MG TAB PO SCH (09:00)
[2023-03-12] MEDS: lisinopriL 10 MG TAB PO SCH (09:18)
[2023-03-12] MEDS: bisacodyL 10 MG SUPP RECTAL SCH (09:19)
[2023-03-12] MEDS ORDERED: PROMETHAZINE SUPPOSITORY 12.5 MG SUPP RECTAL PRN (09:24)
--- NOTE | 2023-03-12 09:26 | P.HPIM ---
History of Present Illness This is a pleasant 82 years old male with multiple medical problems including Hypertension, Osteoarthritis . Benign prostatic hypertrophy Patient was recently discharged from the hospital -03/01 for left knee osteoarthritis status post total left knee arthroplasty. From the patient went to [facility] rehab, he thinks for about 4 days, and was discharged from [facility] to home last Saturday but he states he did not get his prescription with him and he was not taking his medication for the last 3 days on the top of that he was deep vomiting, he said that he fell backwards on Saturday but without syncope, he said he lost his balance. He was not eating and drinking well and with recurrent vomiting over the last 3 days Yesterday of his tenderness To check on him and he was hypotensive. It was 111/70 per patient it was 78/40 in the emergency room Patient denies chest pain, no shortness of breath, no coughing. Patient complains from epigastric pain and tenderness which is mild, nonradiating. Aborted/10 in severity with pain medication this morning to 0/10. None specific. Patient had no bowel movement for the last 4 days. He denies any urinary symptoms, no headache dizziness weakness or numbness. he never smoked no alcohol or illicit drugs patient says that he had 3 surgery for his hiatal hernia, last one was in 1999 at [facility], he said that his surgeon left out of the [place] Currently blood pressure is 131/77, heart rate was 105. No fever Labs showing leukocytosis of 21.7, previously was 11.7 on 03/04/2023 hemoglobin 11.4. Platelet elevated. Sodium 131. Troponin is elevated at 0.04. Liver enzymes are unremarkable. Creatinine 1.1. CT of the abdomen and pelvis: Massively dilated distal esophagus which could be secondary to postsurgical obstruction versus achalasia. A large prostate relate d for PSA. An non-obstructing left 4 mm calculus EKG showing atrial fibrillation with a heart rate of 101. Review of Systems Review of systems CONSTITUTIONAL: No fever, no malaise, no fatigue. HEENT: No recent visual problems or hearing problems. Denied any sore throat. CARDIOVASCULAR: No orthopnea, PND, no palpitations, no syncope. PULMONARY: No shortness of breath, no cough, no hemoptysis. GASTROINTESTINAL: No diarrhea, no nausea, no vomiting, no abdominal pain. Normoactive bowel sounds. NEUROLOGICAL: No headaches, no weakness, no numbness. HEMATOLOGICAL: Denies any bleeding or petechiae. GENITOURINARY: Denies any burning micturition, frequency, or urgency. MUSCULOSKELETAL/RHEUMATOLOGICAL: Denies any joint pain, swelling, or any muscle pain. ENDOCRINE: Denies any polyuria or polydipsia. Past Medical History Past Medical History: Hypertension, Osteoarthritis (OA), Prostate Disorder, Skin Disorder Additional Past Medical History / Comment(s): hx. hiatal hernia-has had 3 surgeries for, abrasion on left arm above wrist, woke up w/it-has bandage & has been cleaning, states no drainage of sx. of infection, ankle swelling History of Any Multi-Drug Resistant Organisms: None Reported Past Surgical History: Hernia Repair, Orthopedic Surgery Additional Past Surgical History / Comment(s): repair of hiatal hernia x3, kuldip. cataracts removed, Left knee replacement 02/27/23. Past Anesthesia/Blood Transfusion Reactions: No Reported Reaction Past Psychological History: Anxiety, Depression Smoking Status: Never smoker Past Alcohol Use History: Daily Past Drug Use History: None Reported - Past Family History Mother Family Medical History: No Reported History Medications and Allergies Home Medications Medication Instructions Recorded Confirmed Type Citalopram Hydrobromide [CeleXA] 20 mg PO DAILY 02/26/23 03/11/23 History Furosemide [Lasix] 20 mg PO WE 02/26/23 03/11/23 History Tamsulosin HCl [Flomax] 0.4 mg PO DAILY 02/26/23 03/11/23 History carvediloL [Coreg] 6.25 mg PO BID 02/26/23 03/11/23 History lisinopriL [Zestril] 10 mg PO DAILY 02/26/23 03/11/23 History Allergies Allergy/AdvReac Type Severity Reaction Status Date / Time Penicillins Allergy swelling,redness, Verified 03/11/23 18:28 itching Sulfa (Sulfonamide Allergy Unknown Verified 03/11/23 18:28 Antibiotics) Physical Exam Vitals: Vital Signs Temp Pulse Resp BP Pulse Ox 03/12/23 07:51 105 H 18 131/77 95 03/12/23 06:07 124 H 20 141/76 94 L 03/12/23 05:38 105 H 18 158/92 03/12/23 03:34 98 140/69 03/12/23 02:01 98 18 152/98 03/12/23 00:55 95 18 152/88 03/11/23 23:28 109 H 16 147/89 03/11/23 18:23 98.5 F 109 H 16 95/74 97 03/11/23 18:17 98.9 F 53 L 18 90/44 99 Intake and Output 03/11/23 03/12/23 03/12/23 22:59 06:59 14:59 Other: Weight 78.925 kg GENERAL: The patient is alert and oriented x3, not in any acute distress. Well developed, well nourished. HEENT: Pupils are round and equally reacting to light. EOMI. No scleral icterus. No conjunctival pallor. Normocephalic, atraumatic. No pharyngeal erythema. No thyromegaly. CARDIOVASCULAR: S1 and S2 present. No murmurs, rubs, or gallops. PULMONARY: Chest is clear to auscultation, no wheezing , no crackles. ABDOMEN: Soft, nontender, nondistended, normoactive bowel sounds. No palpable organomegaly. MUSCULOSKELETAL: No joint swelling or deformity. EXTREMITIES: No cyanosis, clubbing, or pedal edema. Left knee wound is closed and healing, no signs of cellulitis swelling or erythema NEUROLOGICAL: Gross neurological examination did not reveal any focal deficits. SKIN: No rashes. no petechiae. Results CBC & Chem 7: 03/11/23 18:35 03/11/23 18:35 Labs: Abnormal Lab Results - Last 24 Hours (Table) 03/11/23 03/11/23 03/11/23 Range/Units 18:35 18:35 18:35 WBC 21.7 H (3.8-10.6) k/uL RBC 3.57 L (4.30-5.90) m/uL Hgb 11.4 L (13.0-17.5) gm/dL Hct 34.4 L (39.0-53.0) % Plt Count 573 H (150-450) k/uL Neutrophils # 18.5 H (1.3-7.7) k/uL Monocytes # 1.2 H (0-1.0) k/uL APTT (22.0-30.0) sec Sodium 131 L (137-145) mmol/L Chloride 95 L (98-107) mmol/L BUN 51 H (9-20) mg/dL Troponin I 0.043 H* (0.000-0.034) ng/mL Total Protein 5.4 L (6.3-8.2) g/dL Albumin 2.9 L (3.5-5.0) g/dL 03/12/23 Range/Units 05:51 WBC (3.8-10.6) k/uL RBC (4.30-5.90) m/uL Hgb (13.0-17.5) gm/dL Hct (39.0-53.0) % Plt Count (150-450) k/uL Neutrophils # (1.3-7.7) k/uL Monocytes # (0-1.0) k/uL APTT 51.4 H (22.0-30.0) sec Sodium (137-145) mmol/L Chloride (98-107) mmol/L BUN (9-20) mg/dL Troponin I (0.000-0.034) ng/mL Total Protein (6.3-8.2) g/dL Albumin (3.5-5.0) g/dL Assessment and Plan Assessment: New-onset atrial fibrillation with elevated troponin Massively dilated distal esophagus which could be secondary to postsurgical obstruction versus achalasia. Hypertension, Patient was hypotensive on admission Possible sepsis with leukocytosis and tachycardia History of posterior arthritis History of benign prostatic hypertrophy with large prostate. 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 Currently started empirically on Levaquin and Flagyl. Change Zofran to Phenergan to decrease rec.interaction Cardiology consult for elevated troponin and A. fib GI consult, with bowel rest, keep the patient nothing by mouth Given his history of previous surgery pulses are also surgical consult Labs and medication were reviewed.. Continue same treatment. Continue with symptomatic treatment. Resume home medication. Monitor labs and vitals. DVT and GI prophylaxis. Further recommendations as per clinical course of the patient DVT prophylaxis: heparin GI Prophylaxis: Ppi PT/OT: Pending Prognosis is guarded
[2023-03-12 09:42] LABS: Appearance,Urine Clear (Clear); Bilirubin,Urine Negative (Negative); Blood,Urine Negative (Negative); Color,Urine Yellow; Glucose,Urine (UA) Negative (Negative); Ketones,Urine 1+ (Negative); Leukocyte Esterase,Urine Negative (Negative); Nitrite,Urine Negative (Negative); PH, Urine 6.5 (5.0-8.0); Protein,Urine Negative (Negative); Urobilinogen,Urine <2.0 mg/dL (<2.0)
[2023-03-12] MEDS: LEVOFLOXACIN 500MG-D5W PMX 500 MG in DEXTROSE/WATER 1 100ML.BAG IVPB SCH (10:08)
[2023-03-12 10:22] LABS: Specific Gravity,Urine 1.049 (1.001-1.035)
[2023-03-12] MEDS: DEXTROSE 5%-0.9% NACL 1,000 ML IV SCH (10:47)
--- NOTE | 2023-03-12 12:40 | P.CONS ---
History of Present Illness - Reason for Consult Consult date: 03/12/23 Dysphagia Requesting physician: Syed Marie - Chief Complaint Weakness, shortness of breath - History of Present Illness This is a 82-year-old male who recently had a left total knee surgery on 02/27/2023, he was discharged to subacute rehab. He states he went home on Saturday. At that time he started having difficulty with swallowing solids and liquids. He also started having shortness of breath especially with ambulation, coughing up brown sputum as well as he believes vomiting some this well. He has been having increased weakness as well. His past medical history includes hypertension, osteoarthritis, prostate disorder and hiatal hernia surgery 3 which she states was many years ago. He states his last one was in 1999. He denies any heartburn, he has not been taking any heartburn medication. States he does have some lower abdominal pain, he has been constipated for the last 3-4 days. He states the phlegm that he is coughing up has a horrible taste. Denies any fevers or chills. No chest pain. Denies any recent EGD or colonoscopy. He had new onset of atrial fibrillation on this admission and started on a heparin drip. Also underwent a CT of the abdomen and pelvis which reported massively dilated distal esophagus and the inferiorly with ingested contents. Findings could be secondary to postsurgical obstruction given multiple surgical clips at the gastroesophageal junction versus secondary to achalasia. Further evaluation of the esophagus is recommended. Consider NG tube for evacuation of distal esophagitis. Less somatically correlate serum PSA and nonobstructing left 4 mm calculus. Labs WBC 21.7 hemoglobin 11.4 hematocrit 34 platelet count 573,000 sodium 131 potassium 4.0 BUN 51 creatinine 1.1 total bilirubin 0.7 AST 28 ALT 28 alkaline phosphatase 87 troponin 0.043 gastric occult blood positive Review of Systems REVIEW OF SYSTEMS: CARDIOPULMONARY: No chest pain. Reporting shortness of breath especially dyspnea with exertion. Coughing, productive sputum. Gastrointestinal: Difficulty with swallowing solids and liquids. States he has some throat discomfort. No nausea or vomiting. No hematemesis, coffee-ground emesis. No rectal bleeding, or melena. Constipation. GENITOURINARY: No dysuria or hematuria. MUSCULOSKELETAL: Reports normal range of motion., Joint pain. SKIN: No rashes. No jaundice. ENDOCRINE: No chills, fevers. No excessive weight gain or loss. No polydipsia or polyuria. PSYCHIATRIC: Unremarkable. NEUROLOGY: No change in mental status. Denies dizziness, headache. ENT: Vision unremarkable. CONSTITUTIONAL: No recent weight loss. No fever, chills, night sweats. Past Medical History Past Medical History: Hypertension, Osteoarthritis (OA), Prostate Disorder, Skin Disorder Additional Past Medical History / Comment(s): hx. hiatal hernia-has had 3 surgeries for, abrasion on left arm above wrist, woke up w/it-has bandage & has been cleaning, states no drainage of sx. of infection, ankle swelling History of Any Multi-Drug Resistant Organisms: None Reported Past Surgical History: Hernia Repair, Orthopedic Surgery Additional Past Surgical History / Comment(s): repair of hiatal hernia x3, kuldip. cataracts removed, Left knee replacement 02/27/23. Past Anesthesia/Blood Transfusion Reactions: No Reported Reaction Past Psychological History: Anxiety, Depression Smoking Status: Never smoker Past Alcohol Use History: Daily Past Drug Use History: None Reported - Past Family History Mother Family Medical History: No Reported History Medications and Allergies Home Medications Medication Instructions Recorded Confirmed Type Citalopram Hydrobromide [CeleXA] 20 mg PO DAILY 02/26/23 03/11/23 History Furosemide [Lasix] 20 mg PO WE 02/26/23 03/11/23 History Tamsulosin HCl [Flomax] 0.4 mg PO DAILY 02/26/23 03/11/23 History carvediloL [Coreg] 6.25 mg PO BID 02/26/23 03/11/23 History lisinopriL [Zestril] 10 mg PO DAILY 02/26/23 03/11/23 History Allergies Allergy/AdvReac Type Severity Reaction Status Date / Time Penicillins Allergy swelling,redness, Verified 03/11/23 18:28 itching Sulfa (Sulfonamide Allergy Unknown Verified 03/11/23 18:28 Antibiotics) Physical Exam Vitals: Vital Signs Temp Pulse Resp BP Pulse Ox 03/12/23 07:51 105 H 18 131/77 95 03/12/23 06:07 124 H 20 141/76 94 L 03/12/23 05:38 105 H 18 158/92 03/12/23 03:34 98 140/69 03/12/23 02:01 98 18 152/98 03/12/23 00:55 95 18 152/88 03/11/23 23:28 109 H 16 147/89 03/11/23 18:23 98.5 F 109 H 16 95/74 97 03/11/23 18:17 98.9 F 53 L 18 90/44 99 Intake and Output 03/11/23 03/12/23 03/12/23 22:59 06:59 14:59 Other: Weight 78.925 kg General appearance: The patient is alert, oriented, appears in no acute distress. HET: Head is normocephalic and atraumatic. Conjunctiva pink. Sclera anicteric. Neck: Supple without lymphadenopathy. Trachea midline. Heart: S1 S2. Regular rate and rhythm. Lungs: Clear to auscultation. Abdomen: Soft, nontender, nondistended with bowel sounds. No guarding or rigidity. Skin: No rashes. No jaundice. Extremities: Normal skin color and turgor. No pedal edema. Neurological: No focal deficits. Alert and oriented x3. Results CBC & Chem 7: 03/11/23 18:35 03/11/23 18:35 Labs: Abnormal Lab Results - Last 24 Hours (Table) 03/11/23 03/11/23 03/11/23 Range/Units 18:35 18:35 18:35 WBC 21.7 H (3.8-10.6) k/uL RBC 3.57 L (4.30-5.90) m/uL Hgb 11.4 L (13.0-17.5) gm/dL Hct 34.4 L (39.0-53.0) % Plt Count 573 H (150-450) k/uL Neutrophils # 18.5 H (1.3-7.7) k/uL Monocytes # 1.2 H (0-1.0) k/uL APTT (22.0-30.0) sec Sodium 131 L (137-145) mmol/L Chloride 95 L (98-107) mmol/L BUN 51 H (9-20) mg/dL Troponin I 0.043 H* (0.000-0.034) ng/mL Total Protein 5.4 L (6.3-8.2) g/dL Albumin 2.9 L (3.5-5.0) g/dL 03/12/23 Range/Units 05:51 WBC (3.8-10.6) k/uL RBC (4.30-5.90) m/uL Hgb (13.0-17.5) gm/dL Hct (39.0-53.0) % Plt Count (150-450) k/uL Neutrophils # (1.3-7.7) k/uL Monocytes # (0-1.0) k/uL APTT 51.4 H (22.0-30.0) sec Sodium (137-145) mmol/L Chloride (98-107) mmol/L BUN (9-20) mg/dL Troponin I (0.000-0.034) ng/mL Total Protein (6.3-8.2) g/dL Albumin (3.5-5.0) g/dL Assessment and Plan (1) Dysphagia Narrative/Plan: A 2-year-old male who underwent recent left total knee replacement followed by subacute rehab was discharged on Saturday patient states that time he has had shortness of breath especially with exertion, a productive cough and has been having difficulty with swallowing. States he's having difficulty with both solid and liquids and has only had a couple of oatmeal and chicken noodle soup since Saturday. He is now having difficulty holding water down as well. He's had a productive cough with a purulent sputum. And on admission was noted to have new onset atrial fibrillation started on heparin drip. Patient had a long standing history of GERD status post 3 hiatal hernia surgeries last one being in [address]. CT abdomen and pelvis shows a dilated esophagus with food contents. He denies any recent EGD or colonoscopy. Recommend proceeding with upper endoscopy tomorrow if cleared by cardiology. Keep nothing by mouth except for ice chips. Current Visit: Yes Status: Acute Code(s): R13.10 - DYSPHAGIA, UNSPECIFIED SNOMED Code(s): 51612380 (2) Dilatation of esophagus Current Visit: Yes Status: Acute Code(s): K22.89 - OTHER SPECIFIED DISEASE OF ESOPHAGUS SNOMED Code(s): 90491490 (3) Shortness of breath Current Visit: Yes Status: Acute Code(s): R06.02 - SHORTNESS OF BREATH SNOMED Code(s): 417710867 (4) Productive cough Current Visit: Yes Status: Acute Code(s): R05.8 - OTHER SPECIFIED COUGH SNOMED Code(s): 58976445 (5) New onset a-fib Current Visit: Yes Status: Acute Code(s): I48.91 - UNSPECIFIED ATRIAL FIBRILLATION SNOMED Code(s): 38508693 (6) Leukocytosis Current Visit: No Status: Acute Code(s): D72.829 - ELEVATED WHITE BLOOD CELL COUNT, UNSPECIFIED SNOMED Code(s): 420904557 (7) Status post total knee replacement, left Current Visit: No Status: Acute Code(s): Z96.652 - PRESENCE OF LEFT ARTIFICIAL KNEE JOINT SNOMED Code(s): 6642674039935 Plan: 1. Continue symptomatic and supportive care 2. Nothing by mouth except for ice chips and medications, nothing by mouth after midnight except medications 3. Protonix 40 mg IV push twice a day 4. Discuss with cardiology and patient has been cleared to proceed with upper endoscopy 5. Tentatively plan for upper endoscopy tomorrow 6. Stop heparin 4 hours prior to EGD 7. Gastric occult blood ordered 8. Daily CBC transfuse for hemoglobin less than 7 Thank you for this consultation, we'll continue to follow. Dr. Karyn Chin I agree with the dictator's note, documented as a scribe by Sarah Aguilar.
[2023-03-12] MEDS ORDERED: METOPROLOL TARTRATE 25 MG TAB PO STA (12:47)
--- NOTE | 2023-03-12 13:02 | P.CRDCN ---
History of Present Illness Consult date: 03/12/23 Consult reason: atrial fibrillation (new onset) History of present illness: History of present illness: This is an 82-year-old male patient with no previous cardiac history, does not follow with a bdc manager. Patient has a past medical history of hypertension, benign prostatic hypertrophy hiatal hernia with repair 3. Patient gives history that he had knee surgery on the left knee was discharged to [facility] for subacute rehab and was discharged on Saturday from rehab. He states he was not given any medications and he started having this cough with brown chunks. He denies that his vomitus. On Saturday afternoon he had a fall where he fell backwards did not have any injury. He was checked by his home care nurse yesterday and there was concern with his vital signs. Since he has been homeless had difficulty breathing along with palpitations and lightheadedness and dizziness. He also complains of mid abdominal pain and throat pain. He denies having any chest pain. Patient also concerned that he's had slurred speech since his fall. Patient has been seen today in the emergency center. Patient's been started on a heparin drip. Patient is seen in the emergency center waiting for a bed on the cardiac stepdown unit. Patient has had what he calls coffee but appears to be emesis with small dark brown chunks. EKG atrial fibrillation 101 CAT scan of the abdomen and pelvis with contrast revealed massively dilated distal esophagus and inferiorly with ingested contents. Findings could be secondary to postsurgical obstruction given multiple surgical clips at the gastroesophageal junction versus secondary to achalasia. Further evaluation esophagus is recommended. Prostamegaly. Nonobstructive left 4 mm calculus. WBC 21.7, hemoglobin 11.4, platelet count 573. INR 1.1. Sodium 131, potassium 4.0, chloride 95, CO2 30, BUN 51 creatinine 1.1. Troponin 0.043. Gastric occult blood positive. Home cardiac medications: Review Of Systems: At the time of my evaluation: Constitutional: No fever, no chills. No weakness, fatigue or lethargy. EENT: No headache. No dizziness. Lungs: Reports shortness of breath, cough, reports sputum production. No wheezing. Cardiovascular: No chest pain, no lower extremity edema. Reports palpitations. No paroxysmal nocturnal dyspnea. No orthopnea. Reports lightheadedness or d izziness. No syncopal episodes. Abdominal: No abdominal pain. No nausea, vomiting. No diarrhea. No constipation. No bloody or tarry stools. Genitourinary: No dysuria.. No urinary retention. Musculoskeletal: No myalgias. No muscle weakness, no frequent falls. No back pain. No neck pain. Integumentary: No wounds. No rash. No unusual bruising. Neurologic: No aphasia. No facial droop. No change in mentation. No head injury. No headache. Physical examination: Gen: This is an 82-year-old male. He is resting in the ER stretcher and appears to be comfortable. VS: reviewed HEENT: Head is atraumatic, normocephalic. Pupils equal, round. Sclerae is anicteric. NECK: Supple. No JVD. . LUNGS: Clear to auscultation. No wheezes or rhonchi. No intercostal retractions. HEART: Irregular rate and rhythm. No murmur. ABDOMEN: Soft No tenderness. EXTREMITIES: No pedal edema. No calf tenderness. NEUROLOGICAL: Patient is awake, alert and oriented x3. Assessment: New onset A. fib, paroxysmal atrial fibrillation Hypertension Dysphagia with positive occult blood Recent left knee total arthroplasty Hiatal hernia with repair 3 Plan: Continue patient on heparin drip Start patient on Lopressor 50 mg twice daily Obtain 2-D echocardiogram and Doppler study to assess cardiac structure and function Patient is cleared by cardiology for EGD tomorrow. Plan to start patient on o ral anticoagulation tomorrow following procedure pending results. Further recommendations to follow based upon clinical course Thank you kindly for this consultation. Nurse practitioner note has been reviewed, I agree with documented findings and plan of care. Patient was seen and examined. Past Medical History Past Medical History: Hypertension, Osteoarthritis (OA), Prostate Disorder, Skin Disorder Additional Past Medical History / Comment(s): hx. hiatal hernia-has had 3 surgeries for, abrasion on left arm above wrist, woke up w/it-has bandage & has been cleaning, states no drainage of sx. of infection, ankle swelling History of Any Multi-Drug Resistant Organisms: None Reported Past Surgical History: Hernia Repair, Orthopedic Surgery Additional Past Surgical History / Comment(s): repair of hiatal hernia x3, kuldip. cataracts removed, Left knee replacement 02/27/23. Past Anesthesia/Blood Transfusion Reactions: No Reported Reaction Past Psychological History: Anxiety, Depression Smoking Status: Never smoker Past Alcohol Use History: Daily Past Drug Use History: None Reported - Past Family History Mother Family Medical History: No Reported History Medications and Allergies Home Medications Medication Instructions Recorded Confirmed Type Citalopram Hydrobromide [CeleXA] 20 mg PO DAILY 02/26/23 03/11/23 History Furosemide [Lasix] 20 mg PO WE 02/26/23 03/11/23 History Tamsulosin HCl [Flomax] 0.4 mg PO DAILY 02/26/23 03/11/23 History carvediloL [Coreg] 6.25 mg PO BID 02/26/23 03/11/23 History lisinopriL [Zestril] 10 mg PO DAILY 02/26/23 03/11/23 History Allergies Allergy/AdvReac Type Severity Reaction Status Date / Time Penicillins Allergy swelling,redness, Verified 03/11/23 18:28 itching Sulfa (Sulfonamide Allergy Unknown Verified 03/11/23 18:28 Antibiotics) Physical Exam Vitals: Vital Signs Temp Pulse Resp BP Pulse Ox 03/12/23 07:51 105 H 18 131/77 95 03/12/23 06:07 124 H 20 141/76 94 L 03/12/23 05:38 105 H 18 158/92 03/12/23 03:34 98 140/69 03/12/23 02:01 98 18 152/98 03/12/23 00:55 95 18 152/88 03/11/23 23:28 109 H 16 147/89 03/11/23 18:23 98.5 F 109 H 16 95/74 97 03/11/23 18:17 98.9 F 53 L 18 90/44 99 Intake and Output 03/11/23 03/12/23 03/12/23 22:59 06:59 14:59 Other: Weight 78.925 kg Results 03/11/23 18:35 03/11/23 18:35 Cardiac Enzymes 03/11/23 03/11/23 Range/Units 18:35 18:35 AST 28 (17-59) U/L Troponin I 0.043 H* (0.000-0.034) ng/mL Coagulation 03/11/23 03/12/23 Range/Units 18:35 05:51 PT 11.5 (9.0-12.0) sec APTT 23.1 51.4 H (22.0-30.0) sec CBC 03/11/23 Range/Units 18:35 WBC 21.7 H (3.8-10.6) k/uL RBC 3.57 L (4.30-5.90) m/uL Hgb 11.4 L (13.0-17.5) gm/dL Hct 34.4 L (39.0-53.0) % Plt Count 573 H (150-450) k/uL Comprehensive Metabolic Panel 03/11/23 Range/Units 18:35 Sodium 131 L (137-145) mmol/L Potassium 4.0 (3.5-5.1) mmol/L Chloride 95 L (98-107) mmol/L Carbon Dioxide 30 (22-30) mmol/L BUN 51 H (9-20) mg/dL Creatinine 1.10 (0.66-1.25) mg/dL Glucose 96 (74-99) mg/dL Calcium 8.7 (8.4-10.2) mg/dL AST 28 (17-59) U/L ALT 28 (4-49) U/L Alkaline Phosphatase 87 (38-126) U/L Total Protein 5.4 L (6.3-8.2) g/dL Albumin 2.9 L (3.5-5.0) g/dL Current Medications Generic Name Dose Route Start Last Admin Trade Name Freq PRN Reason Stop Dose Admin Heparin Sodium (Porcine) 0 unit 03/11/23 22:10 Heparin Sodium 1,000 Un/Ml (10ml Vl) IV PER PROTOCOL PRN Low PTT Protocol Sodium Chloride 1,000 mls @ 130 mls/hr 03/11/23 22:15 03/12/23 05:34 Saline 0.9% IV 130 mls/hr .[id number] EAN Administration Heparin Sodium/Sodium Chloride 250 mls @ 9.471 mls/hr 03/11/23 22:15 03/11/23 22:35 25,000 unit/ Sodium Chloride IV 12 units/kg/hr .Q24H EAN 9.471 mls/hr Administration Protocol 12 UNITS/KG/HR Morphine Sulfate 4 mg 03/11/23 22:08 03/12/23 06:02 Morphine Sulfate 4 Mg/Ml Syringe IV 4 mg Q4HR PRN Administration Severe Pain (Scale 7 to 10) Naloxone HCl 0.2 mg 03/11/23 22:08 Naloxone 0.4 Mg/Ml 1 Ml Vial IV Q2M PRN Opioid Reversal Ondansetron HCl 4 mg 03/11/23 22:08 03/12/23 05:27 Ondansetron 4 Mg/2 Ml Vial IVP 4 mg Q8HR PRN Administration Nausea And Vomiting Intake and Output 03/11/23 03/12/23 03/12/23 22:59 06:59 14:59 Other: Weight 78.925 kg 03/11/23 18:35 03/11/23 18:35
--- NOTE | 2023-03-12 13:08 | CA ---
Transthoracic Echo Report Name: Monico Stewart Age: 82 Gender: M : 1940 Exam Date: 03/12/2023 11:00 Exam Location: [facility] Ht (in): 68 Wt (lb): 174 Ordering Physician: Lei Chin MD ([id number]) Attending/Referring Phys: Giuseppe ARTEAGA Lead [employer] Developer Valeri Romero [facility] Procedure CPT: Indications: New onset afib Cardiac Hx: Technical Quality: Fair Contrast 1: Total Dose (mL): Contrast 2: Total Dose (mL): MEASUREMENTS (Male / Female) Normal Values 2D ECHO LV Diastolic Diameter PLAX 3.2 cm 4.2 - 5.9 / 3.9 - 5.3 cm LV Systolic Diameter PLAX 2.1 cm IVS Diastolic Thickness 1.2 cm 0.6 - 1.0 / 0.6 - 0.9 cm LVPW Diastolic Thickness 1.3 cm 0.6 - 1.0 / 0.6 - 0.9 cm LV Relative Wall Thickness 0.8 Ascending Aorta Diameter 3.2 cm M-MODE Aortic Root Diameter MM 3.3 cm LA Systolic Diameter MM 2.8 cm LA Ao Ratio MM 0.9 AV Cusp Separation MM 1.8 cm DOPPLER AV Peak Velocity 200.5 cm/s AV Peak Gradient 16.1 mmHg AV Mean Velocity 135.3 cm/s AV Mean Gradient 8.3 mmHg AV Velocity Time Integral 34.2 cm LVOT Peak Velocity 156.3 cm/s LVOT Peak Gradient 9.8 mmHg LVOT Velocity Time Integral 23.7 cm Mitral E Point Velocity 139.9 cm/s MV Deceleration Time 144.2 ms LV E' Septal Velocity 8.6 cm/s Mitral E to LV E' Septal Ratio 16.3 TR Peak Velocity 311.6 cm/s TR Peak Gradient 38.8 mmHg Right Atrial Pressure 8.0 mmHg Pulmonary Artery Systolic Pressu 46.8 mmHg Right Ventricular Systolic Press 43.8 mmHg FINDINGS Left Ventricle Moderately increased left ventricular wall thickness. Left ventricular cavity size normal. No obvious regional wall motion abnormalities. Left ventricular ejection fraction is estimated at 60 %. Right Ventricle Normal right ventricular size and function. Moderate pulmonary hypertension. Right Atrium Mild right atrial dilatation. Left Atrium Normal left atrial size. Mitral Valve Mild mitral annular calcification. Mildly decreased mobility of the posterior mitral valve leaflet. Mild mitral regurgitation. Aortic Valve Trileaflet aortic valve. Diffuse thickening (sclerosis) of the aortic valve cusps without reduced excursion. [id number] aortic regurgitation. Tricuspid Valve Structurally normal tricuspid valve. Mild tricuspid regurgitation. Pulmonic Valve Structurally normal pulmonic valve. Mild pulmonic regurgitation. Pericardium Small pericardial effusion. Aorta Normal size aortic root and proximal ascending aorta. CONCLUSIONS Normal LV systolic function Moderate pulmonary hypertension Mild to moderate iritic regurgitation Previewed by: Dr. Lei Chin MD (Electronically Signed) Final Date: 12 March 2023 13:07
[2023-03-12 13:59] LABS: Basophils % (A) 0 %; Eosinophils # (A) 0.1 k/uL (0-0.7); Eosinophils % (A) 0 %; HCT 39.2 % (39.0-53.0); HGB 12.6 gm/dL (13.0-17.5); Hypochromasia Slight; Lymphocytes # (A) 1.7 k/uL (1.0-4.8); Lymphocytes % (A) 8 %; MCH 31.6 pg (25.0-35.0); MCHC 32.2 g/dL (31.0-37.0); MCV 98.3 fL (80.0-100.0); Monocytes # (A) 1.2 k/uL (0-1.0); Monocytes % (A) 6 %; Neutrophils # (A) 18.4 k/uL (1.3-7.7); Neutrophils % (A) 85 %; Platelet Count 663 k/uL (150-450); RBC 3.99 m/uL (4.30-5.90); RDW 13.6 % (11.5-15.5); WBC 21.7 k/uL (3.8-10.6)
[2023-03-12 14:07] LABS: African American GFR (CKD) >90 (>60 ml/min/1.73 sqM); Anion Gap 7 mmol/L; Blood Urea Nitrogen 40 mg/dL (9-20); Calcium 8.6 mg/dL (8.4-10.2); Carbon Dioxide 32 mmol/L (22-30); Chloride 96 mmol/L (98-107); Glucose 84 mg/dL (74-99); Non-African American GFR(CKD) >90 (>60 ml/min/1.73 sqM); Potassium 3.8 mmol/L (3.5-5.1); Sodium 135 mmol/L (137-145)
[2023-03-12] MEDS ORDERED: PANTOPRAZOLE 40 MG/10 ML VIAL IVP ONE (14:37)
[2023-03-12 16:39] LABS: Basophils % (A) 0 %; Eosinophils # (A) 0.1 k/uL (0-0.7); Eosinophils % (A) 1 %; HCT 34.1 % (39.0-53.0); HGB 11.1 gm/dL (13.0-17.5); Hypochromasia Slight; Lymphocytes # (A) 1.1 k/uL (1.0-4.8); Lymphocytes % (A) 6 %; MCH 32.2 pg (25.0-35.0); MCHC 32.4 g/dL (31.0-37.0); MCV 99.3 fL (80.0-100.0); Mean Platelet Volume 8.2; Monocytes # (A) 0.5 k/uL (0-1.0); Monocytes % (A) 3 %; Neutrophils % (A) 91 %; Platelet Count 596 k/uL (150-450); RBC 3.43 m/uL (4.30-5.90); RDW 13.4 % (11.5-15.5); WBC 18.8 k/uL (3.8-10.6)
[2023-03-12] MEDS: metroNIDAZOLE-NS PMX 500 MG in SALINE 1 100ML.BAG IVPB SCH ×2 (17:40→23:05)
[2023-03-12] MEDS: PANTOPRAZOLE 40 MG/10 ML VIAL IVP SCH (21:04)
[2023-03-12] MEDS: METOPROLOL TARTRATE 50 MG TAB PO SCH (21:04)
[2023-03-12] MEDS: ONDANSETRON 4 MG/2 ML VIAL IVP PRN (21:09)
[2023-03-12] MEDS: PROMETHAZINE SUPPOSITORY 12.5 MG SUPP RECTAL PRN (23:06)
[2023-03-13] MEDS: DEXTROSE 5%-0.9% NACL 1,000 ML IV SCH ×3 (03:42→18:59)
[2023-03-13] MEDS ORDERED: SODIUM CHLORIDE 0.9% 500 ML 500 ML IV ONE ×2 (03:52→23:03)
[2023-03-13 05:24] LABS: ALT 21 U/L (4-49); AST 21 U/L (17-59); African American GFR (CKD) >90 (>60 ml/min/1.73 sqM); Albumin 2.4 g/dL (3.5-5.0); Alkaline Phosphatase 69 U/L (38-126); Anion Gap 4 mmol/L; Blood Urea Nitrogen 45 mg/dL (9-20); Calcium 7.8 mg/dL (8.4-10.2); Carbon Dioxide 29 mmol/L (22-30); Chloride 102 mmol/L (98-107); Glucose 123 mg/dL (74-99); Non-African American GFR(CKD) 84 (>60 ml/min/1.73 sqM); Potassium 3.5 mmol/L (3.5-5.1); Sodium 135 mmol/L (137-145); Total Bilirubin 0.8 mg/dL (0.2-1.3); Total Protein 4.6 g/dL (6.3-8.2)
[2023-03-13 05:45] LABS: Basophils % (A) 0 %; Eosinophils % (A) 0 %; HCT 31.7 % (39.0-53.0); HGB 10.1 gm/dL (13.0-17.5); Hypochromasia Slight; Lymphocytes # (A) 0.9 k/uL (1.0-4.8); Lymphocytes % (A) 6 %; MCH 30.7 pg (25.0-35.0); MCHC 31.9 g/dL (31.0-37.0); MCV 96.3 fL (80.0-100.0); Mean Platelet Volume 7.8; Monocytes # (A) 0.6 k/uL (0-1.0); Monocytes % (A) 4 %; Neutrophils # (A) 12.9 k/uL (1.3-7.7); Neutrophils % (A) 89 %; Platelet Count 522 k/uL (150-450); RBC 3.29 m/uL (4.30-5.90); RDW 13.8 % (11.5-15.5); WBC 14.5 k/uL (3.8-10.6)
[2023-03-13] MEDS: ONDANSETRON 4 MG/2 ML VIAL IVP PRN ×2 (06:00→20:22)
[2023-03-13] MEDS: PROMETHAZINE SUPPOSITORY 12.5 MG SUPP RECTAL PRN (06:23)
[2023-03-13] MEDS: PANTOPRAZOLE 40 MG/10 ML VIAL IVP SCH ×2 (07:53→20:15)
[2023-03-13] MEDS: metroNIDAZOLE-NS PMX 500 MG in SALINE 1 100ML.BAG IVPB SCH ×2 (07:54→17:19)
[2023-03-13] MEDS: bisacodyL 10 MG SUPP RECTAL SCH (11:28)
--- NOTE | 2023-03-13 11:38 | P.GSCN ---
History of Present Illness Consult date: 03/13/23 History of present illness: CHIEF COMPLAINT: Dysphagia HISTORY OF PRESENT ILLNESS: This is a 82-year-old male who presented to the hospital with complaints of difficulty swallowing solids and liquids 1 week. Patient's emesis is now coffee-ground in color. The coffee-ground appearance started during the hospitalization. Patient has had a history of hiatal hernia repairs 3. He is having bowel movements. Last stool was diarrhea yesterday. He had a computed tomography scan completed that did show massive dilated distal esophagus inferiorly with ingested contests. Findings could be secondary to postsurgical obstruction given multiple surgical clips at the gastroesophageal junction versus secondary to achalasia. Patient also seen by GI service and scheduled for EGD today. Patient had new onset of atrial fibrillation during this admission and was started on IV heparin. I gastric occult blood was positive. He denies any abdominal pain. Patient also had a recent left knee replacement on 02/27/2023. PAST MEDICAL HISTORY: See below PAST SURGICAL HISTORY: See below MEDICATIONS: See below ALLERGIES: See below SOCIAL HISTORY: No illicit drug use. REVIEW OF SYSTEMS: CONSTITUTIONAL: Denies fever or chills. HEENT: Denies blurred vision, vision changes, or eye pain. Denies hemoptysis CARDIOVASCULAR: Denies chest pain or pressure. RESPIRATORY: No shortness of breath. GASTROINTESTINAL: See HPI for pertinent findings HEMATOLOGIC: Denies bleeding disorders. GENITOURINARY: Denies any blood in urine or increased urinary frequency. SKIN: Denies pruitis. Denies rash. PHYSICAL EXAM: VITAL SIGNS: Reviewed GENERAL: Well-developed in no acute distress. ABDOMEN: Soft. Nondistended. Nontender NEUROLOGIC: Alert and oriented. Cranial nerves II through XII grossly intact. LABORATORY DATA: WBC is down from 21.7 to 14.5 Hgb 11.4-10.1. Platelets 522 Sodium 135 potassium 3.5 creatinine 0.77 Lactic acid 1.7 Gastric occult blood positive IMAGING: Computed tomography scan abdomen and pelvis showing massively dilated distal esophagus inferiorly with ingested contents. Findings could be secondary to postsurgical obstruction given multiple surgical clips at the gastroesophageal junction versus secondary to achalasia. Further evaluation of the esophagus is recommended. Consider NG tube for evacuation of the distal esophagus. Pr ostamegaly correlate serum PSA. Nonobstructing left 4 mm calculus ASSESSMENT: 1. Dilated distal esophagus with ingested contents noted on CAT scan 2. Dysphagia 3. History of hiatal hernia status post 3 surgeries on the hiatal hernia 4. New onset of A. fib PLAN: -Patient scheduled for EGD today with GI service -Continue supportive care -Further recommendations forthcoming per surgeon Physician Lumber Sticker note has been reviewed by physician. Signing provider agrees with the documented findings, assessment, and plan of care. I have personally seen and examined the patient, reviewed the PRIMARY SPECIAL EDUCATOR /PAs history, exam and MDM and agree with the assessment and plan as written. Based on total visit time, I have performed more than 50% of the visit. As above: Surgical services were consulted for dilated esophagus. Patient with history of 2-3 prior hiatal hernia repairs. Apparently mesh was utilized. Today patient underwent EGD by GI. Patient was having episodes of vomiting prior to that. Following the procedure patient was noted to have increased respiratory distress and some hypotension. Some degree of aspiration either before the procedure or during was suspected. He was transferred to the ICU. CAT scan and EGD results reviewed. Discussed case with GI. Patient does appear to have a recurrent hiatal hernia with some narrowing at the diaphragmatic hiatus. No mita ischemic changes were noted by GI. Patient has a nasogastric tube in place. Patient does not want to be intubated he states. Denies abdominal pain. Continue supportive care with bowel rest and gastric d ecompression. Repair of this recurrent large hiatal hernia is outside of my scope of practice and case was reviewed with other surgeons present here who felt the same. Recommend tertiary care transfer for multidisciplinary evaluation and possible surgical intervention. Transfer is being held currently because of patient's respiratory issues. Recommend transfer once stable. Past Medical History Past Medical History: Hypertension, Osteoarthritis (OA), Prostate Disorder, Skin Disorder Additional Past Medical History / Comment(s): hx. hiatal hernia-has had 3 surgeries for, abrasion on left arm above wrist, woke up w/it-has bandage & has been cleaning, states no drainage of sx. of infection, ankle swelling History of Any Multi-Drug Resistant Organisms: None Reported Past Surgical History: Hernia Repair, Orthopedic Surgery Additional Past Surgical History / Comment(s): repair of hiatal hernia x3, kuldip. cataracts removed, Left knee replacement 02/27/23. Past Anesthesia/Blood Transfusion Reactions: No Reported Reaction Past Psychological History: Anxiety, Depression Smoking Status: Never smoker Past Alcohol Use History: Daily Additional Past Alcohol Use History / Comment(s): small glass of wine mixed w/7up daily but none since Saturday Past Drug Use History: None Reported - Past Family History Mother Family Medical History: No Reported History Medications and Allergies Home Medications Medication Instructions Recorded Confirmed Type Citalopram Hydrobromide [CeleXA] 20 mg PO DAILY 02/26/23 03/11/23 History Furosemide [Lasix] 20 mg PO WE 02/26/23 03/11/23 History Tamsulosin HCl [Flomax] 0.4 mg PO DAILY 02/26/23 03/11/23 History carvediloL [Coreg] 6.25 mg PO BID 02/26/23 03/11/23 History lisinopriL [Zestril] 10 mg PO DAILY 02/26/23 03/11/23 History Allergies Allergy/AdvReac Type Severity Reaction Status Date / Time Penicillins Allergy swelling,redness, Verified 03/11/23 18:28 itching Sulfa (Sulfonamide Allergy Unknown Verified 03/11/23 18:28 Antibiotics) Surgical - Exam Vital Signs Temp Pulse Resp BP Pulse Ox 98.9 F 53 L 18 90/44 99 03/11/23 18:17 03/11/23 18:17 03/11/23 18:17 03/11/23 18:17 03/11/23 18:17 Results - Labs 03/13/23 05:07 03/13/23 05:07 Abnormal Lab Results - Last 24 Hours (Table) 03/12/23 03/12/23 03/12/23 Range/Units 12:27 13:30 16:08 WBC 21.7 H 18.8 H (3.8-10.6) k/uL RBC 3.99 L 3.43 L (4.30-5.90) m/uL Hgb 12.6 L 11.1 L (13.0-17.5) gm/dL Hct 34.1 L (39.0-53.0) % Plt Count 663 H 596 H (150-450) k/uL Neutrophils # 18.4 H 17.0 H (1.3-7.7) k/uL Lymphocytes # (1.0-4.8) k/uL Monocytes # 1.2 H (0-1.0) k/uL Sodium 135 L (137-145) mmol/L Chloride 96 L (98-107) mmol/L Carbon Dioxide 32 H (22-30) mmol/L BUN 40 H (9-20) mg/dL Creatinine 0.61 L (0.66-1.25) mg/dL Glucose (74-99) mg/dL Calcium (8.4-10.2) mg/dL Total Protein (6.3-8.2) g/dL Albumin (3.5-5.0) g/dL 03/13/23 03/13/23 Range/Units 05:07 05:07 WBC 14.5 H (3.8-10.6) k/uL RBC 3.29 L (4.30-5.90) m/uL Hgb 10.1 L (13.0-17.5) gm/dL Hct 31.7 L (39.0-53.0) % Plt Count 522 H (150-450) k/uL Neutrophils # 12.9 H (1.3-7.7) k/uL Lymphocytes # 0.9 L (1.0-4.8) k/uL Monocytes # (0-1.0) k/uL Sodium 135 L (137-145) mmol/L Chloride (98-107) mmol/L Carbon Dioxide (22-30) mmol/L BUN 45 H (9-20) mg/dL Creatinine (0.66-1.25) mg/dL Glucose 123 H (74-99) mg/dL Calcium 7.8 L (8.4-10.2) mg/dL Total Protein 4.6 L (6.3-8.2) g/dL Albumin 2.4 L (3.5-5.0) g/dL Diabetes panel 03/12/23 03/13/23 Range/Units 12:27 05:07 Sodium 135 L 135 L (137-145) mmol/L Potassium 3.8 3.5 (3.5-5.1) mmol/L Chloride 96 L 102 (98-107) mmol/L Carbon Dioxide 32 H 29 (22-30) mmol/L BUN 40 H 45 H (9-20) mg/dL Creatinine 0.61 L 0.77 (0.66-1.25) mg/dL Glucose 84 123 H (74-99) mg/dL Calcium 8.6 7.8 L (8.4-10.2) mg/dL AST 21 (17-59) U/L ALT 21 (4-49) U/L Alkaline Phosphatase 69 (38-126) U/L Total Protein 4.6 L (6.3-8.2) g/dL Albumin 2.4 L (3.5-5.0) g/dL Calcium panel 03/12/23 03/13/23 Range/Units 12: 05:07 Calcium 8.6 7.8 L (8.4-10.2) mg/dL Albumin 2.4 L (3.5-5.0) g/dL Pituitary panel 03/12/23 03/13/23 Range/Units 12: 05:07 Sodium 135 L 135 L (137-145) mmol/L Potassium 3.8 3.5 (3.5-5.1) mmol/L Chloride 96 L 102 (98-107) mmol/L Carbon Dioxide 32 H 29 (22-30) mmol/L BUN 40 H 45 H (9-20) mg/dL Creatinine 0.61 L 0.77 (0.66-1.25) mg/dL Glucose 84 123 H (74-99) mg/dL Calcium 8.6 7.8 L (8.4-10.2) mg/dL Adrenal panel 03/12/23 03/13/23 Range/Units 12:27 05:07 Sodium 135 L 135 L (137-145) mmol/L Potassium 3.8 3.5 (3.5-5.1) mmol/L Chloride 96 L 102 (98-107) mmol/L Carbon Dioxide 32 H 29 (22-30) mmol/L BUN 40 H 45 H (9-20) mg/dL Creatinine 0.61 L 0.77 (0.66-1.25) mg/dL Glucose 84 123 H (74-99) mg/dL Calcium 8.6 7.8 L (8.4-10.2) mg/dL Total Bilirubin 0.8 (0.2-1.3) mg/dL AST 21 (17-59) U/L ALT 21 (4-49) U/L Alkaline Phosphatase 69 (38-126) U/L Total Protein 4.6 L (6.3-8.2) g/dL Albumin 2.4 L (3.5-5.0) g/dL
[2023-03-13] MEDS ORDERED: IV FLUID CONTINUATION 200 ML IV ONE (12:22)
[2023-03-13] MEDS ORDERED: PROPOFOL 10 MG/ML 20 ML VIAL IV ONE (12:30)
[2023-03-13] MEDS ORDERED: PHENYLEPHRINE-0.9% NACL SYG 1,000 MCG/10 ML SYRINGE ONE (12:30)
[2023-03-13] MEDS ORDERED: SUCCINYLCHOLINE CHLORIDE 200 MG/10 ML VIAL IV ONE (12:30)
[2023-03-13] MEDS ORDERED: LIDOCAINE 2% INJ 20 MG/ML (2 ML VIAL) ONE (12:30)
--- NOTE | 2023-03-13 12:59 | P.PCN ---
Date of Procedure: 03/13/23 Procedure(s) Performed: BRIEF HISTORY: Patient is a 82-year-old, pleasant, white male admitted hospital with dysphagia and persistent nausea vomiting for the last few weeks duration. He had a CT of the abdomen done that showed dilated esophagus. His and scheduled for an upper endoscopy to evaluate further. PROCEDURE PERFORMED: Esophagogastroduodenoscopy with biopsy. PREOPERATIVE DIAGNOSIS: Nausea vomiting and dysphagia for the last few days duration. IV sedation per anesthesia. PROCEDURE: After informed consent was obtained, the patient was brought into the endoscopy unit. IV sedation was administered by Anesthesia under continuous monitoring. Initially the Olympus GIF-140 video endoscope was inserted into the mouth. As soon as the scope was inserted into the mouth, the patient started throwing up . The scope was removed and patient was subsequently intubated. Once his AV was secured EGD was performed. The Esophagus intubated without any difficulty. It was gradually advanced into the distal esophagus and there was large amount of retained liquid and solid noted in the esophagus. He was advanced into the stomach there was a large hiatal hernia noted with retained liquid and solid food area after suctioning most of the food I was able to gradually advance the scope into the antrum of the stomach and then to the duodenum and carefully examined. The bulb and the second part of the duodenum appeared normal. The scope at this time was withdrawn to the stomach, adequately insufflated with air, and upon careful examination, mucosa of the antrum, appeared normal. Mucosa of the body, cardia and the fundus there part of the hiatal hernia.. The scope was then withdrawn into the esophagus. The GE junction was located at 30 cm from the incisors. The esophagus appeared dilated with multiple punctate like ulcerations noted in the distal esophagus this was biopsied and the patient tolerated the procedure well. Preprocedure NG tube was inserted and connected to suction. IMPRESSION: 1. Dilated fluid-filled esophagus and a large hiatal hernia and evidence of gastric volvulus 2. Punctate like ulcerations noted in the dilated distal esophagus status post biopsies. RECOMMENDATIONS: The findings of this examination were discussed with the patient .. At this time continue with NG tube suction. Obtain surgical consultation for evaluation of large hiatal hernia..
[2023-03-13] MEDS ORDERED: LACTATED RINGERS 1,000 ML IV ONE ×2 (13:10)
[2023-03-13 13:19] LABS: Glucose,Whole Blood 165 mg/dL (70-110)
[2023-03-13] MEDS ORDERED: ALBUTEROL NEBULIZED 2.5 MG/3 ML INHALATION ONE (13:23)
[2023-03-13] MEDS: PHENYLEPHRINE-0.9% NACL SYG 1,000 MCG/10 ML SYRINGE IV ONE ×4 (13:25→13:41)
--- NOTE | 2023-03-13 13:33 | XR ---
EXAMINATION TYPE: XR chest 1V portable DATE OF EXAM: 03/13/2023 HISTORY: Shortness of breath. COMPARISON: None. TECHNIQUE: Single view of the chest is submitted. FINDINGS: Demonstrated are scattered senescent parenchymal change. NG tube is seen coiled within the patient's hiatal hernia. There is patchy infiltrate noted at the lung bases left greater than right which may reflect pneumoni a and/or aspiration pneumonia. Suspect small left-sided effusion. The heart is stable. Hilar and mediastinal structures are within normal limits. Degenerative changes are seen of the dorsal spine. IMPRESSION: 1. There is patchy infiltrate noted at the lung bases left greater than right which may reflect pneu monia and/or aspiration pneumonia. Suspect small left-sided effusion.
[2023-03-13] MEDS ORDERED: ePHEDrine 50 MG/ML 1 ML VIAL IM ONE (14:00)
--- NOTE | 2023-03-13 14:31 | P.PN ---
Subjective Progress Note Date: 03/13/23 This is a pleasant 82 years old male with multiple medical problems including Hypertension, Osteoarthritis . Benign prostatic hypertrophy Patient was recently discharged from the hospital -03/01 for left knee osteoarthritis status post total left knee arthroplasty. From the patient went to [facility] rehab, he thinks for about 4 days, and was discharged from [facility] to home last Saturday but he states he did not get his prescription with him and he was not taking his medication for the last 3 days on the top of that he was deep vomiting, he said that he fell backwards on Saturday but without syncope, he said he lost his balance. He was not eating and drinking well and with recurrent vomiting over the last 3 days Patient complains from epigastric pain and tenderness which is mild, nonradiating. Aborted/10 in severity with pain medication this morning to 0/10. None specific. Patient had no bowel movement for the last 4 days. He denies any urinary symptoms, no headache dizziness weakness or numbness. he never smoked no alcohol or illicit drugs patient says that he had 3 surgery for his hiatal hernia, last one was in 1999 at [facility], he said that his surgeon left out of the [place] Currently blood pressure is 131/77, heart rate was 105. No fever Labs showing leukocytosis of 21.7, previously was 11.7 on 03/04/2023 hemoglobin 11.4. Platelet elevated. Sodium 131. Troponin is elevated at 0.04. Liver enzymes are unremarkable. Creatinine 1.1. CT of the abdomen and pelvis: Massively dilated distal esophagus which could be secondary to postsurgical obstruction versus achalasia. A large prostate related for PSA. An non-obstructing left 4 mm calculus EKG showing atrial fibrillation with a heart rate of 101. 7/5. Patient seen and examined. No acute issues overnight. REVIEW OF SYSTEMS: CONSTITUTIONAL: No fever, no malaise,. CARDIOVASCULAR: No chest pain, no palpitations, no syncope. PULMONARY: No shortness of breath, no cough, GASTROINTESTINAL: No diarrhea, no nausea, no vomiting, no abdominal pain. NEUROLOGICAL: No headaches, no weakness, PHYSICAL EXAMINATION: GENERAL: The patient is alert and oriented x3, not in any acute distress. Well developed, well nourished. HEENT: Pupils are round and equally reacting to light. EOMI. No scleral icterus. No conjunctival pallor. Normocephalic, atraumatic. No pharyngeal erythema. No thyromegaly. CARDIOVASCULAR: S1 and S2 present. No murmurs, rubs, or gallops. PULMONARY: Chest is clear to auscultation, no wheezing or crackles. ABDOMEN: Soft, nontender, nondistended, normoactive bowel sounds. No palpable organomegaly. MUSCULOSKELETAL: No joint swelling or deformity. Left knee surgical incision seen EXTREMITIES: No cyanosis, clubbing, or pedal edema. NEUROLOGICAL: Gross neurological examination did not reveal any focal deficits. SKIN: No rashes. Assessment and plan New-onset atrial fibrillation with elevated troponin Massively dilated distal esophagus which could be secondary to postsurgical obstruction versus achalasia. Hypertension, Patient was hypotensive on admission Possible sepsis with leukocytosis and tachycardia Recent left knee arthroplasty History of benign prostatic hypertrophy with large prostate. 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 Continue same treatment. Continue with symptomatic treatment. Resume home medication. Monitor labs and vitals. DVT and GI prophylaxis. Further recommendations as per clinical course of the patient Objective - Vital Signs Vital signs: Vital Signs Temp 98.7 F 03/13/23 07:39 Pulse 76 03/13/23 07:39 Resp 20 03/13/23 07:39 BP 133/76 03/13/23 07:39 Pulse Ox 92 L 03/13/23 07:39 FiO2 Intake & Output 03/12/23 03/13/23 03/13/23 18:59 06:59 18:59 Intake Total 158.955 120 10 Output Total 650 Balance 158.955 -530 10 Weight 78.925 kg Intake: IV 10 Invasive Line 1 10 Intake, IV Titration 158.955 Amount Heparin Sod,Pork in 0.45% 158.955 NaCl 25,000 unit In 0.45 % NaCl 1 250ml.bag @ 12 UNITS/KG/HR 9.471 mls/hr IV .Q24H [facility] Rx#: [id number] Oral 120 Output: Urine 250 Emesis 400 Other: Voiding Method Toilet Toilet Urinal Urinal # Voids 1 # Bowel Movements 1 - Labs CBC & Chem 7: 03/13/23 05:07 03/13/23 05:07 Labs: Abnormal Lab Results - Last 24 Hours (Table) 03/12/23 03/12/23 03/12/23 Range/Units 09:29 12:27 13:30 WBC 21.7 H (3.8-10.6) k/uL RBC 3.99 L (4.30-5.90) m/uL Hgb 12.6 L (13.0-17.5) gm/dL Hct (39.0-53.0) % Plt Count 663 H (150-450) k/uL Neutrophils # 18.4 H (1.3-7.7) k/uL Lymphocytes # (1.0-4.8) k/uL Monocytes # 1.2 H (0-1.0) k/uL Sodium 135 L (137-145) mmol/L Chloride 96 L (98-107) mmol/L Carbon Dioxide 32 H (22-30) mmol/L BUN 40 H (9-20) mg/dL Creatinine 0.61 L (0.66-1.25) mg/dL Glucose (74-99) mg/dL Calcium (8.4-10.2) mg/dL Total Protein (6.3-8.2) g/dL Albumin (3.5-5.0) g/dL Ur Specific [place] 1.049 H (1.001-1.035) Urine Ketones 1+ H (Negative) 03/12/23 03/13/23 03/13/23 Range/Units 16:08 05:07 05:07 WBC 18.8 H 14.5 H (3.8-10.6) k/uL RBC 3.43 L 3.29 L (4.30-5.90) m/uL Hgb 11.1 L 10.1 L (13.0-17.5) gm/dL Hct 34.1 L 31.7 L (39.0-53.0) % Plt Count 596 H 522 H (150-450) k/uL Neutrophils # 17.0 H 12.9 H (1.3-7.7) k/uL Lymphocytes # 0.9 L (1.0-4.8) k/uL Monocytes # (0-1.0) k/uL Sodium 135 L (137-145) mmol/L Chloride (98-107) mmol/L Carbon Dioxide (22-30) mmol/L BUN 45 H (9-20) mg/dL Creatinine (0.66-1.25) mg/dL Glucose 123 H (74-99) mg/dL Calcium 7.8 L (8.4-10.2) mg/dL Total Protein 4.6 L (6.3-8.2) g/dL Albumin 2.4 L (3.5-5.0) g/dL Ur Specific [place] (1.001-1.035) Urine Ketones (Negative)
--- NOTE | 2023-03-13 14:34 | P.PN ---
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 Patient has a past medical history of hypertension, benign prostatic hypertrophy hiatal hernia with repair 3. Patient gives history that he had knee surgery on the left knee was discharged to [facility] for subacute rehab and was discharged on Saturday from rehab. He states he was not given any medications and he started having this cough with brown chunks. He denies that his vomitus. On Saturday afternoon he had a fall where he fell backwards did not have any injury. He was checked by his home care nurse yesterday and there was concern with his vital signs. Since he has been homeless had difficulty breathing along with palpitations and lightheadedness and dizziness. He also complains of mid abdominal pain and throat pain. He denies having any chest pain. Patient also concerned that he's had slurred speech since his fall. Patient has been seen today in the emergency center. Patient's been started on a heparin drip. Patient is seen in the emergency center waiting for a bed on the cardiac stepdown unit. Patient has had what he calls coffee but appears to be emesis with small dark brown chunks. EKG atrial fibrillation 101 CAT scan of the abdomen and pelvis with contrast revealed massively dilated distal esophagus and inferiorly with ingested contents. Findings could be secondary to postsurgical obstruction given multiple surgical clips at the gastroesophageal junction versus secondary to achalasia. Further evaluation esophagus is recommended. Prostamegaly. Nonobstructive left 4 mm calculus. WBC 21.7, hemoglobin 11.4, platelet count 573. INR 1.1. Sodium 131, potassium 4.0, chloride 95, CO2 30, BUN 51 creatinine 1.1. Troponin 0.043. Gastric occult blood positive. Home cardiac medications: 03/13 Yesterday afternoon, we discontinued heparin drip as patient was having coffee- ground emesis. Patient states that he's continued to have brown emesis this morning. Patient is scheduled for EGD today with Dr. Karyn Chin. Telemetry re jacinto in atrial fibrillation rate controlled. Pulse ox is 92% on room air, blood pressure 133/76. Echocardiogram reveals normal LV systolic function, moderate pulmonary hypertension, mild to moderate mitral regurgitation. Physical examination: Gen: This is an 82-year-old male. He is sitting on the edge of the bedd appears to be comfortable. VS: reviewed HEENT: Head is atraumatic, normocephalic. Pupils equal, round. Sclerae is anicteric. NECK: Supple. No JVD. LUNGS: Clear to auscultation. No wheezes or rhonchi. No intercostal retractions. HEART: Irregular rate and rhythm. No murmur. EXTREMITIES: No pedal edema. No calf tenderness. NEUROLOGICAL: Patient is awake, alert and oriented x3. Assessment: New onset A. fib, paroxysmal atrial fibrillation Hypertension Dysphagia with positive occult blood Acute GI bleed Recent left knee total arthroplasty Hiatal hernia with repair 3 Plan Hold anticoagulation Continue patient on Lopressor 50 mg twice daily Patient is scheduled for EGD today Further recommendations to follow based upon clinical course Nurse practitioner note has been reviewed, I agree with documented findings and plan of care. Patient was seen and examined. Objective - Vital Signs Vital signs: Vital Signs Temp 98.7 F 03/13/23 07:39 Pulse 106 H 03/13/23 11:33 Resp 18 03/13/23 11:33 BP 127/66 03/13/23 11:33 Pulse Ox 90 L 03/13/23 11:33 FiO2 Intake & Output 03/12/23 03/13/23 03/13/23 18:59 06:59 18:59 Intake Total 158.955 120 10 Output Total 650 Balance 158.955 -530 10 Weight 78.925 kg Intake: IV 10 Invasive Line 1 10 Intake, IV Titration 158.955 Amount Heparin Sod,Pork in 0.45% 158.955 NaCl 25,000 unit In 0.45 % NaCl 1 250ml.bag @ 12 UNITS/KG/HR 9.471 mls/hr IV .Q24H [facility] Rx#: [id number] Oral 120 Output: Urine 250 Emesis 400 Other: Voiding Method Toilet Toilet Toilet Urinal Urinal Urinal # Voids 1 # Bowel Movements 1 - Labs CBC & Chem 7: 03/13/23 05:07 03/13/23 05:07 Labs: Abnormal Lab Results - Last 24 Hours (Table) 03/12/23 03/12/23 03/12/23 Range/Units 12:27 13:30 16:08 WBC 21.7 H 18.8 H (3.8-10.6) k/uL RBC 3.99 L 3.43 L (4.30-5.90) m/uL Hgb 12.6 L 11.1 L (13.0-17.5) gm/dL Hct 34.1 L (39.0-53.0) % Plt Count 663 H 596 H (150-450) k/uL Neutrophils # 18.4 H 17.0 H (1.3-7.7) k/uL Lymphocytes # (1.0-4.8) k/uL Monocytes # 1.2 H (0-1.0) k/uL Sodium 135 L (137-145) mmol/L Chloride 96 L (98-107) mmol/L Carbon Dioxide 32 H (22-30) mmol/L BUN 40 H (9-20) mg/dL Creatinine 0.61 L (0.66-1.25) mg/dL Glucose (74-99) mg/dL Calcium (8.4-10.2) mg/dL Total Protein (6.3-8.2) g/dL Albumin (3.5-5.0) g/dL 03/13/23 03/13/23 Range/Units 05:07 05:07 WBC 14.5 H (3.8-10.6) k/uL RBC 3.29 L (4.30-5.90) m/uL Hgb 10.1 L (13.0-17.5) gm/dL Hct 31.7 L (39.0-53.0) % Plt Count 522 H (150-450) k/uL Neutrophils # 12.9 H (1.3-7.7) k/uL Lymphocytes # 0.9 L (1.0-4.8) k/uL Monocytes # (0-1.0) k/uL Sodium 135 L (137-145) mmol/L Chloride (98-107) mmol/L Carbon Dioxide (22-30) mmol/L BUN 45 H (9-20) mg/dL Creatinine (0.66-1.25) mg/dL Glucose 123 H (74-99) mg/dL Calcium 7.8 L (8.4-10.2) mg/dL Total Protein 4.6 L (6.3-8.2) g/dL Albumin 2.4 L (3.5-5.0) g/dL
[2023-03-13 15:25] LABS: Glucose,Whole Blood 137 mg/dL (70-110)
--- NOTE | 2023-03-13 15:54 | P.CNPUL ---
History of Present Illness Consult date: 03/13/23 Requesting physician: Betty Quiles Reason for consult: dyspnea, hypoxemia, pneumonia, abnormal CXR/CT Chief complaint: Aspiration during EGD. History of present illness: Pulmonary consult dated 03/13/2023. 82-year-old male who presented to the emergency department on March 11, complaining of difficulty in breathing, and weakness. The patient had recent knee surgery in February. He was on his left knee. I believe it was the left knee replacement. He subsequently was discharged to subacute rehab, and discharged from there, 3 or 4 days prior to his admission to the emergency room on March 11. Apparently when the visiting nurse checked him, the patient had a low blood pressure, and, was not really eating or drinking very much. For that reason, he was directed back into the emergency room. The patient has a history of hypertension, DJD, hiatal hernia with previous surgeries 3 of his hiatal hernia, recent left knee surgery, and prostate disease. The patient also has a history of anxiety and depression, and is a lifelong nonsmoker. Today, the patient was undergoing an EGD, and apparently had a large-volume aspiration. The patient was taken to postoperative recovery area, and then transferred up to the third floor, and we were asked to see him. The patient was on 6 L, and his saturations are only in the low to mid 80s. I asked him to place a nonrebreather on the patient, and, transfer him to the intensive care unit for further monitoring and management. Laboratory data includes a white count of 14.5, hemoglobin 10.1, hematocrit 31.7, and a platelet count of 522,000. Sodium 135, potassium 3.5, chlorides 102, CO2 29, BUN 45, creatinine 0.77. Glucose was 137. Albumin 2.4. The patient's chest x-ray, done today, after the procedure, reveals bibasilar patchy infiltrates, left greater than right. This likely represents aspiration. Review of Systems REVIEW OF SYSTEMS: CONSTITUTIONAL: Weakness. NEUROLOGIC: [ Negative.] HEENT: [ Negative.] CARDIAC: [Negative.] PULMONARY: Acute hypoxemic respiratory failure, secondary to large-volume aspiration, after EGD. GI: Poor oral intake. : [Negative.] RHEUMATOLOGIC: [ Negative.] IMMUNOLOGIC: [ Negative.] ENDOCRINE: [Negative. ] DERMATOLOGIC: [Negative.] Past Medical History Past Medical History: Hypertension, Osteoarthritis (OA), Prostate Disorder, Skin Disorder Additional Past Medical History / Comment(s): hx. hiatal hernia-has had 3 surgeries for, abrasion on left arm above wrist, woke up w/it-has bandage & has been cleaning, states no drainage of sx. of infection, ankle swelling History of Any Multi-Drug Resistant Organisms: None Reported Past Surgical History: Hernia Repair, Orthopedic Surgery Additional Past Surgical History / Comment(s): repair of hiatal hernia x3, kuldip. cataracts removed, Left knee replacement 02/27/23. Past Anesthesia/Blood Transfusion Reactions: No Reported Reaction Past Psychological History: Anxiety, Depression Smoking Status: Never smoker Past Alcohol Use History: Daily Additional Past Alcohol Use History / Comment(s): small glass of wine mixed w/up daily but none since Saturday Past Drug Use History: None Reported - Past Family History Mother Family Medical History: No Reported History Medications and Allergies Home Medications Medication Instructions Recorded Confirmed Type Citalopram Hydrobromide [CeleXA] 20 mg PO DAILY 02/26/23 03/11/23 History Furosemide [Lasix] 20 mg PO WE 02/26/23 03/11/23 History Tamsulosin HCl [Flomax] 0.4 mg PO DAILY 02/26/23 03/11/23 History carvediloL [Coreg] 6.25 mg PO BID 02/26/23 03/11/23 History lisinopriL [Zestril] 10 mg PO DAILY 02/26/23 03/11/23 History Allergies Allergy/AdvReac Type Severity Reaction Status Date / Time Penicillins Allergy swelling,redness, Verified 03/11/23 18:28 itching Sulfa (Sulfonamide Allergy Unknown Verified 03/11/23 18:28 Antibiotics) Physical Exam Osteopathic Statement: *. No significant issues noted on an osteopathic structural exam other than those noted in the History and Physical/Consult. Vitals: Vital Signs Temp Pulse Pulse Resp BP BP Pulse Ox 03/13/23 14:17 104 H 20 97/48 89 L 03/13/23 14:00 111 H 20 117/55 87 L 03/13/23 13:41 87 20 89/51 94 L 03/13/23 13:35 83 20 86/48 94 L 03/13/23 13:20 96 20 78/39 94 L 03/13/23 13:06 98 F 83 20 88/49 93 L 03/13/23 11:33 106 H 18 127/66 90 L 03/13/23 07:39 98.7 F 76 20 133/76 92 L 03/13/23 06:01 95 03/13/23 05:45 108 H 18 125/78 88 L 03/13/23 04:30 98/62 03/13/23 03:30 98.4 F 96 18 83/52 77/50 92 L 03/13/23 01:54 89 18 03/13/23 00:00 98.5 F 89 18 95/59 98 03/12/23 20:00 98.3 F 89 18 106/70 96 03/12/23 16:10 96 03/12/23 16:03 97.2 F L 93 18 102/67 90 L Intake and Output 03/13/23 03/13/23 03/13/23 06:59 14:59 22:59 Intake Total 1010 Output Total 600 Balance -600 1010 Intake: IV 910 Invasive Line 1 10 Intake, IV Titration 100 Amount metroNIDAZOLE-NS PMX 500 100 mg In Saline 1 100ml.bag @ 100 mls/hr IVPB Q8HR [facility] Rx#:[id number] Output: Urine 250 Emesis 350 Other: Voiding Method Toilet Toilet Urinal Urinal Weight 78.925 kg Somnolent, shakes his head, when asked how he is doing. Currently on nasal cannula, as well as a nonrebreather mass. HEENT examination is grossly unremarkable. Neck supple. Full range of motion. No adenopathy thyromegaly or neck vein distention. Cardiovascular examination reveals regular rhythm rate. S1-S2 normal. No S3 or S4. No discernible murmur noted. Heart rate 120 bpm. Heart sounds are distant. Lungs reveal coarse bilateral breath sounds. Coarse rhonchi noted. No wheezes. No crackles. Breath sounds equal. Saturations are low 90s high 80s, on a nonrebreather mass. Abdomen soft bowel sounds are heard. No masses or tenderness. Extremities are intact. No cyanosis clubbing or edema. Skin is without rash or lesion. Neurologic examination is brief but nonfocal. Results - Laboratory Findings CBC and BMP: 03/13/23 05:07 03/13/23 05:07 PT/INR, D-dimer PT 11.5 sec (9.0-12.0) 03/11/23 18:35 INR 1.1 (<1.2) 03/11/23 18:35 Abnormal lab findings: Abnormal Labs 03/11/23 03/11/23 03/11/23 18:35 18:35 18:35 WBC 21.7 H RBC 3.57 L Hgb 11.4 L Hct 34.4 L Plt Count 573 H Neutrophils # 18.5 H Lymphocytes # Monocytes # 1.2 H APTT Sodium 131 L Chloride 95 L Carbon Dioxide BUN 51 H Creatinine Glucose POC Glucose (mg/dL) Calcium Troponin I 0.043 H* Total Protein 5.4 L Albumin 2.9 L Ur Specific [place] Urine Ketones 03/12/23 03/12/23 03/12/23 05:51 09:29 12:27 WBC RBC Hgb Hct Plt Count Neutrophils # Lymphocytes # Monocytes # APTT 51.4 H Sodium 135 L Chloride 96 L Carbon Dioxide 32 H BUN 40 H Creatinine 0.61 L Glucose POC Glucose (mg/dL) Calcium Troponin I Total Protein Albumin Ur Specific [place] 1.049 H Urine Ketones 1+ H 03/12/23 03/12/23 03/13/23 13:30 16:08 05:07 WBC 21.7 H 18.8 H 14.5 H RBC 3.99 L 3.43 L 3.29 L Hgb 12.6 L 11.1 L 10.1 L Hct 34.1 L 31.7 L Plt Count 663 H 596 H 522 H Neutrophils # 18.4 H 17.0 H 12.9 H Lymphocytes # 0.9 L Monocytes # 1.2 H APTT Sodium Chloride Carbon Dioxide BUN Creatinine Glucose POC Glucose (mg/dL) Calcium Troponin I Total Protein Albumin Ur Specific [place] Urine Ketones 03/13/23 03/13/23 03/13/23 05:07 13:17 15:23 WBC RBC Hgb Hct Plt Count Neutrophils # Lymphocytes # Monocytes # APTT Sodium 135 L Chloride Carbon Dioxide BUN 45 H Creatinine Glucose 123 H POC Glucose (mg/dL) 165 H 137 H Calcium 7.8 L Troponin I Total Protein 4.6 L Albumin 2.4 L Ur Specific [place] Urine Ketones - Diagnostic Findings Chest x-ray: image reviewed Assessment and Plan Assessment: Acute hypoxemic respiratory failure secondary to acute gastric acid aspiration, following an EGD. Patient at high risk for developing acute respiratory distress syndrome. History of hiatal hernia, with surgery 3. History of hypertension. History of BPH. Status post recent left total knee arthroplasty, 02/27/2023. History of anxiety/depression. Plan: Plan dated 03/13/2023. The patient is transferred to the intensive care unit. That way, the patient can be monitored and managed more closely. The patient is apparently a DO NOT RESUSCITATE patient. The patient had a large-volume gastric acid aspiration, and developed acute hypoxemic respiratory failure. Chest x-ray shows bibasilar infiltrates, left greater than right. Additional recommendations and suggestions are forthcoming. Prognosis is certainly guarded. The patient's at high risk for developing acute respiratory distress syndrome. Time with Patient: Greater than 30
[2023-03-13] MEDS ORDERED: SODIUM CHLORIDE 0.9% 1,000 ML IV ONE (16:12)
[2023-03-13] MEDS: METOPROLOL TARTRATE 50 MG TAB PO SCH (16:24)
[2023-03-13] MEDS: LEVOFLOXACIN 500MG-D5W PMX 500 MG in DEXTROSE/WATER 1 100ML.BAG IVPB SCH (16:24)
[2023-03-13] MEDS: lisinopriL 10 MG TAB PO SCH (16:24)
[2023-03-13] MEDS: NOREPINEPHRINE 4 MG in SODIUM CHLORIDE 0.9% 250 ML IV SCH (17:35)
[2023-03-13] MEDS ORDERED: AMIODARONE 360 MG in DEXTROSE 5% IN WATER 200 ML IV ONE ×2 (18:16)
[2023-03-13] MEDS ORDERED: DEXTROSE 5% IN WATER 100 ML with AMIODARONE 150 MG IV ONE (18:16)
[2023-03-13] MEDS: MORPHINE SULFATE 4 MG/ML SYRINGE IV PRN (20:20)
[2023-03-13] MEDS ORDERED: VASOPRESSIN 60 UNIT in SODIUM CHLORIDE 0.9% 150 ML IV SCH (23:30)
[2023-03-14] MEDS: AMIODARONE 450 MG in DEXTROSE 5% IN WATER 250 ML IV SCH ×4 (00:12→17:03)
[2023-03-14] MEDS: metroNIDAZOLE-NS PMX 500 MG in SALINE 1 100ML.BAG IVPB SCH ×2 (00:12→08:39)
[2023-03-14] MEDS: LACTATED RINGERS 1,000 ML IV SCH ×3 (00:14→18:40)
[2023-03-14 00:55] LABS: African American GFR (CKD) >90 (>60 ml/min/1.73 sqM); Anion Gap 7 mmol/L; Blood Urea Nitrogen 42 mg/dL (9-20); Calcium 7.2 mg/dL (8.4-10.2); Carbon Dioxide 19 mmol/L (22-30); Chloride 109 mmol/L (98-107); Glucose 87 mg/dL (74-99); Non-African American GFR(CKD) 85 (>60 ml/min/1.73 sqM); Sodium 135 mmol/L (137-145)
[2023-03-14 00:59] LABS: Potassium 3.8 mmol/L (3.5-5.1)
[2023-03-14] MEDS: MORPHINE SULFATE 4 MG/ML SYRINGE IV PRN (02:37)
[2023-03-14 05:25] LABS: HCT 30.3 % (39.0-53.0); HGB 9.8 gm/dL (13.0-17.5); Hypochromasia Slight; MCH 31.4 pg (25.0-35.0); MCHC 32.4 g/dL (31.0-37.0); MCV 96.9 fL (80.0-100.0); Mean Platelet Volume 8.1; Platelet Count 405 k/uL (150-450); RBC 3.13 m/uL (4.30-5.90); RDW 14.1 % (11.5-15.5); WBC 17.9 k/uL (3.8-10.6)
[2023-03-14 05:47] LABS: ALT 20 U/L (4-49); AST 27 U/L (17-59); African American GFR (CKD) >90 (>60 ml/min/1.73 sqM); Albumin 1.9 g/dL (3.5-5.0); Alkaline Phosphatase 55 U/L (38-126); Anion Gap 6 mmol/L; Blood Urea Nitrogen 43 mg/dL (9-20); Calcium 7.3 mg/dL (8.4-10.2); Carbon Dioxide 22 mmol/L (22-30); Chloride 108 mmol/L (98-107); Glucose 86 mg/dL (74-99); Non-African American GFR(CKD) 82 (>60 ml/min/1.73 sqM); Potassium 3.6 mmol/L (3.5-5.1); Sodium 136 mmol/L (137-145); Total Bilirubin 1.2 mg/dL (0.2-1.3)
[2023-03-14 05:58] LABS: Band Neutrophils % 76 %; Lymphocytes # (M) 0.72 k/uL (1.0-4.8); Metamyelocytes # (M) 0.18 k/uL (0); Metamyelocytes % 1 %; Monocytes # (M) 0.18 k/uL (0-1.0); Neutrophils % (M) 18 %; Nucleated Red Blood Cells 0 /100 WBC (0-0); Total Cells Counted 200
[2023-03-14 05:59] LABS: Toxic Granulation Present
--- NOTE | 2023-03-14 07:11 | XR ---
EXAMINATION TYPE: XR chest 1V portable DATE OF EXAM: 03/14/2023 5:49 AM COMPARISON: Chest radiographs from 03/13/2023 TECHNIQUE: XR chest 1V portable Portable AP radiograph of the chest. CLINICAL INDICATION:Male, 82 years old with history of aspiration; FINDINGS: Lungs/Pleura: Increased right basilar consolidation with similar left basilar patchy airspace opaciti es. Blunting of the left costophrenic angle redemonstrated. No pneumothorax. Heart/mediastinum: Cardiomediastinal silhouette is enlarged and stable. Musculoskeletal: No acute osseous pathology. Other findings: Multiple surgical clips identified within the central upper abdomen Lines/Tubes: Nasogastric tube redemonstrated with distal tip in the region of the left upper quadrant and sidehole overlying the heart in the known large hiatal hernia. IMPRESSION: 1. Increased right basilar consolidation with similar left basilar patchy airspace opacities. Findin gs are again concerning for aspiration pneumonia. 2. Small left pleural effusion redemonstrated. 3. NG tube redemonstrated with tip in the left upper quadrant and sidehole in the known large hilar hernia.
[2023-03-14] MEDS: POTASSIUM CHLORIDE 10 MEQ in WATER FOR INJECTION 1 100ML.BAG IVPB SCH ×2 (08:40→09:52)
[2023-03-14] MEDS: PANTOPRAZOLE 40 MG/10 ML VIAL IVP SCH ×2 (08:40→20:33)
[2023-03-14] MEDS: bisacodyL 10 MG SUPP RECTAL SCH (08:41)
[2023-03-14] MEDS: NOREPINEPHRINE 4 MG in SODIUM CHLORIDE 0.9% 250 ML IV SCH ×3 (09:10)
--- NOTE | 2023-03-14 09:44 | P.PN ---
Subjective Progress Note Date: 03/14/23 Principal diagnosis: Respiratory failure. Pulmonary consult dated 03/13/2023. 82-year-old male who presented to the emergency department on March 11, complaining of difficulty in breathing, and weakness. The patient had recent knee surgery in February. He was on his left knee. I believe it was the left knee replacement. He subsequently was discharged to subacute rehab, and discharged from there, 3 or 4 days prior to his admission to the emergency room on March 11. Apparently when the visiting nurse checked him, the patient had a low blood pressure, and, was not really eating or drinking very much. For that reason, he was directed back into the emergency room. The patient has a history of hypertension, DJD, hiatal hernia with previous surgeries 3 of his hiatal hernia, recent left knee surgery, and prostate disease. The patient also has a history of anxiety and depression, and is a lifelong nonsmoker. Today, the patient was undergoing an EGD, and apparently had a large-volume aspiration. The patient was taken to postoperative recovery area, and then transferred up to the third floor, and we were asked to see him. The patient was on 6 L, and his saturations are only in the low to mid 80s. I asked him to place a nonrebreather on the patient, and, transfer him to the intensive care unit for further monitoring and management. Laboratory data includes a white count of 14.5, hemoglobin 10.1, hematocrit 31.7, and a platelet count of 522,000. Sodium 135, potassium 3.5, chlorides 102, CO2 29, BUN 45, creatinine 0.77. Glucose was 137. Albumin 2.4. The patient's chest x-ray, done today, after the procedure, reveals bibasilar patchy infiltrates, left greater than right. This likely represents aspiration. Progress note dated 03/14/2023. The patient was transferred to the intensive care unit, because of a large- volume aspiration following EGD. The patient is seen today in room 257, intensive care unit. The patient was placed on AIRVO with settings of 45 L/m, with an FiO2 of 82%. The patient's getting lactated Ringer's at 100 mL an hour, amiodarone at 0.5 mg/m, and norepinephrine for micrograms per minute. Clinically, the patient looks much better today than he did yesterday. White count 17.9, hemoglobin 9.8, hematocrit 30.3, and platelet count was normal. Sodium 136, potassium 3.6, chlorides 108, CO2 22, BUN 43, and creatinine 0.81. Chest x-ray shows a right basilar consolidation, consistent with aspiration. There is a small left-sided pleural effusion, and some atelectasis or infiltrate at the left lung base. Objective - Vital Signs Vital signs: Vital Signs Temp 97.6 F 03/14/23 08:00 Pulse 112 H 03/14/23 09:15 Resp 27 H 03/14/23 09:15 BP 115/86 03/14/23 09:15 Pulse Ox 96 03/14/23 09:15 FiO2 82 03/14/23 08:00 Intake & Output 03/13/23 03/14/23 03/14/23 18:59 06:59 18:59 Intake Total 2027.541 1751.393 579.066 Output Total 150 365 185 Balance 4389.871 5872.393 394.066 Weight 78.925 kg 81.2 kg Intake: IV 1910 1330 510 Dextrose 5%-0.9% NaCl 1, 100 000 ml @ 100 mls/hr IV . Q10H [facility] Rx#:[id number] Invasive Line 1 10 30 10 LR @ 100 1100 300 Potassium Chloride 10 meq 100 In Water For Injection 1 100ml.bag @ 100 mls/hr IVPB Q1H [facility] Rx#: [id number] Sodium Chloride 0.9% 1, 1000 000 ml @ 999 mls/hr IV . Q1H1M [facility] Rx#:[id number] metroNIDAZOLE-NS PMX 500 100 100 mg In Saline 1 100ml.bag @ 100 mls/hr IVPB Q8HR [facility] Rx#:[id number] Intake, IV Titration 117.541 421.393 69.066 Amount Norepinephrine 4 mg In 17.541 421.393 69.066 Sodium Chloride 0.9% 250 ml @ 0.03 MCG/KG/MIN 9. 021 mls/hr IV .Q24H [facility] Rx#:[id number] metroNIDAZOLE-NS PMX 500 100 mg In Saline 1 100ml.bag @ 100 mls/hr IVPB Q8HR [facility] Rx#:[id number] Output: Urine 50 365 185 Emesis 100 Other: Voiding Method Indwelling Catheter Indwelling Catheter Indwelling Catheter - Exam Mild respiratory distress with mild conversational dyspnea. Currently on AIRVO. HEENT examination is grossly unremarkable. Neck supple. Full range of motion. No adenopathy thyromegaly or neck vein distention. Cardiovascular examination reveals regular rhythm rate. S1-S2 normal. No S3 or S4. No discernible murmur noted. Heart sounds are distant. Heart rate 98 bpm. Lungs reveal coarse bilateral breath sounds. Breath sounds are diminished throughout. Most abnormal sounds are in the right base. No crackles. Saturations are 96% on AIRVO. Abdomen soft bowel sounds are heard. No masses or tenderness. Extremities are intact. No cyanosis clubbing or edema. Skin is without rash or lesion. Neurologic examination is brief but nonfocal. - Labs CBC & Chem 7: 03/14/23 04:34 03/14/23 04:34 Labs: Abnormal Lab Results - Last 24 Hours (Table) 03/13/23 03/13/23 03/14/23 Range/Units 13:17 15:23 00:12 WBC (3.8-10.6) k/uL RBC (4.30-5.90) m/uL Hgb (13.0-17.5) gm/dL Hct (39.0-53.0) % Neutrophils # (Manual) (1.3-7.7) k/uL Lymphocytes # (Manual) (1.0-4.8) k/uL Metamyelocytes # (Man) (0) k/uL Sodium 135 L (137-145) mmol/L Chloride 109 H (98-107) mmol/L Carbon Dioxide 19 L (22-30) mmol/L BUN 42 H (9-20) mg/dL POC Glucose (mg/dL) 165 H 137 H (70-110) mg/dL Calcium 7.2 L (8.4-10.2) mg/dL Total Protein (6.3-8.2) g/dL Albumin (3.5-5.0) g/dL 03/14/23 03/14/23 Range/Units 04:34 04:34 WBC 17.9 H (3.8-10.6) k/uL RBC 3.13 L (4.30-5.90) m/uL Hgb 9.8 L (13.0-17.5) gm/dL Hct 30.3 L (39.0-53.0) % Neutrophils # (Manual) 16.80 H (1.3-7.7) k/uL Lymphocytes # (Manual) 0.72 L (1.0-4.8) k/uL Metamyelocytes # (Man) 0.18 H (0) k/uL Sodium 136 L (137-145) mmol/L Chloride 108 H (98-107) mmol/L Carbon Dioxide (22-30) mmol/L BUN 43 H (9-20) mg/dL POC Glucose (mg/dL) (70-110) mg/dL Calcium 7.3 L (8.4-10.2) mg/dL Total Protein 4.0 L (6.3-8.2) g/dL Albumin 1.9 L (3.5-5.0) g/dL Assessment and Plan Assessment: Acute hypoxemic respiratory failure secondary to acute gastric acid aspiration, following an EGD. Patient at high risk for developing acute respiratory distress syndrome. History of hiatal hernia, with surgery 3. History of hypertension. History of BPH. Status post recent left total knee arthroplasty, 02/27/2023. History of anxiety/depression. Plan: Plan dated 03/13/2023. The patient is transferred to the intensive care unit. That way, the patient can be monitored and managed more closely. The patient is apparently a DO NOT RESUSCITATE patient. The patient had a large-volume gastric acid aspiration, and developed acute hypoxemic respiratory failure. Chest x-ray shows bibasilar infiltrates, left greater than right. Additional recommendations and suggestions are forthcoming. Prognosis is certainly guarded. The patient's at high risk for developing acute respiratory distress syndrome. Plan dated 03/14/2023. The patient is seen in the intensive care unit, room 257. The patient was init ially in the postop area, transferred to 3 , and then transferred to the intensive care unit. She's currently on AIRVO. Pro-calcitonin level was quite low at 0.04. The patient likely has gastric acid aspiration, and typically antibiotics are not recommended. They will be discontinued. Labs, x-rays, medications are reviewed. Prognosis is guarded. We will continue to follow the patient make recommendations along the way. The patient is on amiodarone at 0.5 mg/m, and norepinephrine at 4 mcg/m. No additional recommendations are made. Time with Patient: Greater than 30
[2023-03-14] MEDS: LEVOFLOXACIN 500MG-D5W PMX 500 MG in DEXTROSE/WATER 1 100ML.BAG IVPB SCH (09:51)
--- NOTE | 2023-03-14 11:53 | P.PN ---
Subjective Progress Note Date: 03/14/23 CHIEF COMPLAINT: Dysphagia HISTORY OF PRESENT ILLNESS: Surgical service consulted for dilated esophagus. Patient with dysphagia and nausea and vomiting on admission. Status post EGD with GI service had shown dilated fluid-filled esophagus with large hiatal hernia and evidence of gastric volvulus. Punctate-like ulcerations noted in the dilated distal esophagus. Patient has NG tube in place with minimal output. Denies any abdominal pain. Chest x-ray report states increased right basilar consolidation with similar left basilar patchy airspace opacities findings are concerning for aspiration pneumonia. Patient is currently in the ICU due to respiratory failure from aspirating and requiring AIRVO. He is off the Levophed. He is on the amiodarone. Patient's CODE STATUS is a DO NOT RESUSCITATE. Due to this large hiatal hernia was recommended that patient be transferred to a tertiary care center. He is had 3 prior hiatal hernia repairs. Patient does not want any surgery done for this hiatal hernia and does not want to be transferred for any further care. He is contemplating being placed on comfort care by the end of the week. Medicine service is being notified of patient's wishes by nursing staff. PHYSICAL EXAM: VITAL SIGNS: Reviewed. GENERAL: Well-developed in no acute distress. ABDOMEN: Soft. Nondistended. Nontender. NEUROLOGIC: Alert and oriented. Cranial nerves II through XII grossly intact. ASSESSMENT: 1. 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 Dilated esophagus 3. Aspiration pneumonia PLAN: -Recommend transfer to tertiary care center for hiatal hernia repair when stable and if patient is agreeable -Continue NG tube for decompression -Continue supportive care Physician Farmworker [employer] note has been reviewed by physician. Signing provider agrees with the documented findings, assessment, and plan of care. I have personally seen and examined the patient, reviewed the [employer]ING [employer]PERATOR /PAs history, exam and MDM and agree with the assessment and plan as written. Based on total visit time, I have performed more than 50% of the visit. As above: Clinically the patient is slightly improved from yesterday. Patient says he does not want transfer or surgery for this hiatal hernia however. Consideration for hospice her family ongoing. Continue nasogastric tube decompression. Objective - Vital Signs Vital signs: Vital Signs Temp 97.6 F 03/14/23 08:00 Pulse 108 H 03/14/23 11:15 Resp 43 H 03/14/23 11:15 BP 120/63 03/14/23 11:15 Pulse Ox 90 L 03/14/23 11:15 FiO2 82 03/14/23 08:00 Intake & Output 03/13/23 03/14/23 03/14/23 18:59 06:59 18:59 Intake Total 2027.541 1751.393 890.068 Output Total 150 365 285 Balance 4845.081 4793.393 605.068 Weight 78.925 kg 81.2 kg Intake: IV 1910 1330 820 Dextrose 5%-0.9% NaCl 1, 100 000 ml @ 100 mls/hr IV . Q10H [facility] Rx#:[id number] Invasive Line 1 10 30 20 LR @ 100 1100 500 Potassium Chloride 10 meq 200 In Water For Injection 1 100ml.bag @ 100 mls/hr IVPB Q1H [facility] Rx#: [id number] Sodium Chloride 0.9% 1, 1000 000 ml @ 999 mls/hr IV . Q1H1M [facility] Rx#:[id number] metroNIDAZOLE-NS PMX 500 100 100 mg In Saline 1 100ml.bag @ 100 mls/hr IVPB Q8HR [facility] Rx#:[id number] Intake, IV Titration 117.541 421.393 70.068 Amount Norepinephrine 4 mg In 17.541 421.393 70.068 Sodium Chloride 0.9% 250 ml @ 0.03 MCG/KG/MIN 9. 021 mls/hr IV .Q24H [facility] Rx#:[id number] metroNIDAZOLE-NS PMX 500 100 mg In Saline 1 100ml.bag @ 100 mls/hr IVPB Q8HR [facility] Rx#:[id number] Output: Urine 50 365 285 Emesis 100 Other: Voiding Method Indwelling Catheter Indwelling Catheter Indwelling Catheter - Labs CBC & Chem 7: 03/14/23 04:34 03/14/23 04:34 Labs: Abnormal Lab Results - Last 24 Hours (Table) 03/13/23 03/13/23 03/14/23 Range/Units 13:17 15:23 00:12 WBC (3.8-10.6) k/uL RBC (4.30-5.90) m/uL Hgb (13.0-17.5) gm/dL Hct (39.0-53.0) % Neutrophils # (Manual) (1.3-7.7) k/uL Lymphocytes # (Manual) (1.0-4.8) k/uL Metamyelocytes # (Man) (0) k/uL Sodium 135 L (137-145) mmol/L Chloride 109 H (98-107) mmol/L Carbon Dioxide 19 L (22-30) mmol/L BUN 42 H (9-20) mg/dL POC Glucose (mg/dL) 165 H 137 H (70-110) mg/dL Calcium 7.2 L (8.4-10.2) mg/dL Total Protein (6.3-8.2) g/dL Albumin (3.5-5.0) g/dL 03/14/23 03/14/23 Range/Units 04:34 04:34 WBC 17.9 H (3.8-10.6) k/uL RBC 3.13 L (4.30-5.90) m/uL Hgb 9.8 L (13.0-17.5) gm/dL Hct 30.3 L (39.0-53.0) % Neutrophils # (Manual) 16.80 H (1.3-7.7) k/uL Lymphocytes # (Manual) 0.72 L (1.0-4.8) k/uL Metamyelocytes # (Man) 0.18 H (0) k/uL Sodium 136 L (137-145) mmol/L Chloride 108 H (98-107) mmol/L Carbon Dioxide (22-30) mmol/L BUN 43 H (9-20) mg/dL POC Glucose (mg/dL) (70-110) mg/dL Calcium 7.3 L (8.4-10.2) mg/dL Total Protein 4.0 L (6.3-8.2) g/dL Albumin 1.9 L (3.5-5.0) g/dL
--- NOTE | 2023-03-14 14:39 | P.PN ---
Subjective Progress Note Date: 03/14/23 Principal diagnosis: Dysphagia, large hiatal hernia This is a 82-year-old male who recently had a left total knee surgery on 02/27/2023, he was discharged to subacute rehab. He states he went home on Saturday. At that time he started having difficulty with swallowing solids and liquids. He also started having shortness of breath especially with ambulation, coughing up brown sputum as well as he believes vomiting some this well. He has been having increased weakness as well. His past medical history includes hypertension, osteoarthritis, prostate disorder and hiatal hernia surgery 3 which she states was many years ago. He states his last one was in 1999. He denies any heartburn, he has not been taking any heartburn medication. States he does have some lower abdominal pain, he has been constipated for the last 3-4 days. He states the phlegm that he is coughing up has a horrible taste. Denies any fevers or chills. No chest pain. Denies any recent EGD or colonoscopy. He had new onset of atrial fibrillation on this admission and started on a heparin drip. Also underwent a CT of the abdomen and pelvis which reported massively dilated distal esophagus and the inferiorly with ingested contents. Findings could be secondary to postsurgical obstruction given multiple surgical clips at the gastroesophageal junction versus secondary to achalasia. Further evaluation of the esophagus is recommended. Consider NG tube for evacuation of distal esophagitis. Less somatically correlate serum PSA and nonobstructing left 4 mm calculus. 03/14/2023 Patient seen and examined as a follow-up. Yesterday he underwent upper endoscopy with findings of a dilated fluid-filled esophagus a large hiatal hernia with evidence of gastric volvulus. There was punctate-like ulcerations noted in the dilated distal esophagus status post biopsies. During the procedure the patient had to be intubated, he also had NG tube placed. He had a large volume aspiration and was transferred to the ICU yesterday afternoon. Gen. surgery was consulted for the large hiatal hernia. The recommendation was to transfer to tertiary center. Patient is currently in the ICU on AIRVO reported liters/m. Currently has NG tube placed with approximately 100 mL of dark output. Patient has made himself a no code and does not wish to be transferred to a tertiary center and states he does not want any further surgeries. He denies any abdominal pain at this time. He is not having any nausea or vomiting. Objective - Vital Signs Vital signs: Vital Signs Temp 97.6 F 03/14/23 08:00 Pulse 112 H 03/14/23 09:15 Resp 27 H 03/14/23 09:15 BP 115/86 03/14/23 09:15 Pulse Ox 96 03/14/23 09:15 FiO2 82 03/14/23 08:00 Intake & Output 03/13/23 03/14/23 03/14/23 18:59 06:59 18:59 Intake Total 2027.541 1751.393 579.066 Output Total 150 365 185 Balance 0305.768 3663.393 394.066 Weight 78.925 kg 81.2 kg Intake: IV 1910 1330 510 Dextrose 5%-0.9% NaCl 1, 100 000 ml @ 100 mls/hr IV . Q10H [facility] Rx#:[id number] Invasive Line 1 10 30 10 LR @ 100 1100 300 Potassium Chloride 10 meq 100 In Water For Injection 1 100ml.bag @ 100 mls/hr IVPB Q1H [facility] Rx#: [id number] Sodium Chloride 0.9% 1, 1000 000 ml @ 999 mls/hr IV . Q1H1M [facility] Rx#:[id number] metroNIDAZOLE-NS PMX 500 100 100 mg In Saline 1 100ml.bag @ 100 mls/hr IVPB Q8HR [facility] Rx#:[id number] Intake, IV Titration 117.541 421.393 69.066 Amount Norepinephrine 4 mg In 17.541 421.393 69.066 Sodium Chloride 0.9% 250 ml @ 0.03 MCG/KG/MIN 9. 021 mls/hr IV .Q24H [facility] Rx#:[id number] metroNIDAZOLE-NS PMX 500 100 mg In Saline 1 100ml.bag @ 100 mls/hr IVPB Q8HR [facility] Rx#:[id number] Output: Urine 50 365 185 Emesis 100 Other: Voiding Method Indwelling Catheter Indwelling Catheter Indwelling Catheter - Exam General appearance: The patient is alert, oriented, appears in no acute distress. HET: Head is normocephalic and atraumatic. Conjunctiva pink. Sclera anicteric. NG tube in place Neck: Supple without lymphadenopathy. Abdomen: Soft, nontender, nondistended with bowel sounds. No guarding or rigidity. Extremities: Normal skin color and turgor. No pedal edema Skin: No rashes, no jaundice Neurological: No focal deficits. Alert and oriented. - Labs CBC & Chem 7: 03/14/23 04:34 03/14/23 04:34 Labs: Abnormal Lab Results - Last 24 Hours (Table) 03/13/23 03/13/23 03/14/23 Range/Units 13:17 15:23 00:12 WBC (3.8-10.6) k/uL RBC (4.30-5.90) m/uL Hgb (13.0-17.5) gm/dL Hct (39.0-53.0) % Neutrophils # (Manual) (1.3-7.7) k/uL Lymphocytes # (Manual) (1.0-4.8) k/uL Metamyelocytes # (Man) (0) k/uL Sodium 135 L (137-145) mmol/L Chloride 109 H (98-107) mmol/L Carbon Dioxide 19 L (22-30) mmol/L BUN 42 H (9-20) mg/dL POC Glucose (mg/dL) 165 H 137 H (70-110) mg/dL Calcium 7.2 L (8.4-10.2) mg/dL Total Protein (6.3-8.2) g/dL Albumin (3.5-5.0) g/dL 03/14/23 03/14/23 Range/Units 04:34 04:34 WBC 17.9 H (3.8-10.6) k/uL RBC 3.13 L (4.30-5.90) m/uL Hgb 9.8 L (13.0-17.5) gm/dL Hct 30.3 L (39.0-53.0) % Neutrophils # (Manual) 16.80 H (1.3-7.7) k/uL Lymphocytes # (Manual) 0.72 L (1.0-4.8) k/uL Metamyelocytes # (Man) 0.18 H (0) k/uL Sodium 136 L (137-145) mmol/L Chloride 108 H (98-107) mmol/L Carbon Dioxide (22-30) mmol/L BUN 43 H (9-20) mg/dL POC Glucose (mg/dL) (70-110) mg/dL Calcium 7.3 L (8.4-10.2) mg/dL Total Protein 4.0 L (6.3-8.2) g/dL Albumin 1.9 L (3.5-5.0) g/dL Assessment and Plan (1) Dysphagia Narrative/Plan: 82-year-old male who underwent recent left total knee replacement followed by subacute rehab was discharged on Saturday patient states that time he has had shortness of breath especially with exertion, a productive cough and has been having difficulty with swallowing. States he's having difficulty with both solid and liquids and has only had a couple of oatmeal and chicken noodle soup since Saturday. He is now having difficulty holding water down as well. He's had a productive cough with a purulent sputum. And on admission was noted to have new onset atrial fibrillation started on heparin drip. Patient had a long standing history of GERD status post 3 hiatal hernia surgeries last one being in 1999. CT abdomen and pelvis shows a dilated esophagus with food contents. He denies any recent EGD or colonoscopy. Recommend proceeding with upper endoscopy tomorrow if cleared by cardiology. Keep nothing by mouth except for ice chips. 03/14/2023 Patient status post upper endoscopy with findings of dilated fluid-filled esophagus and large hiatal hernia evidence of gastric bubble S, punctuated like ulcerations noted in the dilated distal esophagus and post biopsies. Gen. surgery was consulted with recommendation for transfer to tertiary center for further evaluation and care. At this time patient is a no code and is declining transfer and requesting to meet with hospice. Current Visit: Yes Status: Acute Code(s): R13.10 - DYSPHAGIA, UNSPECIFIED SNOMED Code(s): 13871705 (2) Dilatation of esophagus Current Visit: Yes Status: Acute Code(s): K22.89 - OTHER SPECIFIED DISEASE OF ESOPHAGUS SNOMED Code(s): 38390244 (3) Hiatal hernia Current Visit: Yes Status: Acute Code(s): K44.9 - DIAPHRAGMATIC HERNIA WITHOUT OBSTRUCTION OR GANGRENE SNOMED Code(s): 23775841 (4) Shortness of breath Current Visit: Yes Status: Acute Code(s): R06.02 - SHORTNESS OF BREATH SNOMED Code(s): 289886329 (5) Productive cough Current Visit: Yes Status: Acute Code(s): R05.8 - OTHER SPECIFIED COUGH SNOMED Code(s): 04530008 (6) New onset a-fib Current Visit: Yes Status: Acute Code(s): I48.91 - UNSPECIFIED ATRIAL F IBRILLATION SNOMED Code(s): 79852578 (7) Leukocytosis Current Visit: No Status: Acute Code(s): D72.829 - ELEVATED WHITE BLOOD CELL COUNT, UNSPECIFIED SNOMED Code(s): 844441816 (8) Status post total knee replacement, left Current Visit: No Status: Acute Code(s): Z96.652 - PRESENCE OF LEFT ARTIFICIAL KNEE JOINT SNOMED Code(s): 7248853189792 (9) Aspiration into airway Current Visit: Yes Status: Acute Code(s): T17.908A - UNSP FB IN RESP TRACT, PART UNSP CAUSING OTH INJURY, INIT SNOMED Code(s): 823961348 Plan: 1. Continue symptomatic and supportive care 2. Keep nothing by mouth can have ice chips 3. Keep NG tube in place for now 4. Gen. surgery on consult, with recommendations for transfer to tertiary center 5. Continue ICU recommendations 6. Patient declining transfer to tertiary center, requesting hospice consult 7. No further GI workup indicated Thank you for this consultation, we will continue to follow. Dr. Karyn Chin I agree with the dictator's note, documented as a scribe by Sarah Aguilar.
--- NOTE | 2023-03-14 15:48 | P.PN ---
Subjective Progress Note Date: 03/14/23 82 years old male with multiple medical problems including Hypertension, Osteoarthritis . Benign prostatic hypertrophy Patient was recently discharged from the hospital -03/01 for left knee osteoarthritis status post total left knee arthroplasty. From the patient went to [facility] rehab, he thinks for about 4 days, and was discharged from [facility] to home last Saturday but he states he did not get his prescription with him and he was not taking his medication for the last 3 days on the top of that he was deep vomiting, he said that he fell backwards on Saturday but without syncope, he said he lost his balance. He was not eating and drinking well and with recurrent vomiting over the last 3 days Patient complains from epigastric pain and tenderness which is mild, nonradiating. Aborted/10 in severity with pain medication this morning to 0/10. None specific. Patient had no bowel movement for the last 4 days. He denies any urinary symptoms, no headache dizziness weakness or numbness. he never smoked no alcohol or illicit drugs patient says that he had 3 surgery for his hiatal hernia, last one was in 1999 at [facility], he said that his surgeon left out of the [place] Currently blood pressure is 131/77, heart rate was 105. No fever Labs showing leukocytosis of 21.7, previously was 11.7 on 03/04/2023 hemoglobin 11.4. Platelet elevated. Sodium 131. Troponin is elevated at 0.04. Liver enzymes are unremarkable. Creatinine 1.1. CT of the abdomen and pelvis: Massively dilated distal esophagus which could be secondary to postsurgical obstruction versus achalasia. A large prostate related for PSA. An non-obstructing left 4 mm calculus EKG showing atrial fibrillation with a heart rate of 101. 03/14/2023 Patient is seen and evaluated at bedside in ICU; status post EGD which revealed dilated fluid-filled esophagus with large hiatal hernia and evidence of gastric volvulus; punctate ulcerations were noted on distal esophagus -- Patient was transferred to ICU post EGD with aspiration; chest x-ray revealed right basilar consolidation with left basilar patchy airspace opacities consistent with aspiration pneumonia -- Patient has an NG tube in and is recommended transferred to a tertiary care center for any further management of large hiatal hernia and dilated esophagus; she does have history of 3 prior hiatal hernia repair -- Patient and family have decided against transferred on any further care and is requesting consultation with hospice care for comfort care measures Objective - Vital Signs Vital signs: Vital Signs Temp 97.6 F 03/14/23 08:00 Pulse 108 H 03/14/23 11:15 Resp 43 H 03/14/23 11:15 BP 120/63 03/14/23 11:15 Pulse Ox 90 L 03/14/23 11:15 FiO2 82 03/14/23 08:00 Intake & Output 03/13/23 03/14/23 03/14/23 18:59 06:59 18:59 Intake Total 2027.541 1751.393 890.068 Output Total 150 365 285 Balance 6600.693 9728.393 605.068 Weight 78.925 kg 81.2 kg Intake: IV 1910 1330 820 Dextrose 5%-0.9% NaCl 1, 100 000 ml @ 100 mls/hr IV . Q10H [facility] Rx#:[id number] Invasive Line 1 10 30 20 LR @ 100 1100 500 Potassium Chloride 10 meq 200 In Water For Injection 1 100ml.bag @ 100 mls/hr IVPB Q1H [facility] Rx#: [id number] Sodium Chloride 0.9% 1, 1000 000 ml @ 999 mls/hr IV . Q1H1M [facility] Rx#:[id number] metroNIDAZOLE-NS PMX 500 100 100 mg In Saline 1 100ml.bag @ 100 mls/hr IVPB Q8HR [facility] Rx#:[id number] Intake, IV Titration 117.541 421.393 70.068 Amount Norepinephrine 4 mg In 17.541 421.393 70.068 Sodium Chloride 0.9% 250 ml @ 0.03 MCG/KG/MIN 9. 021 mls/hr IV .Q24H [facility] Rx#:[id number] metroNIDAZOLE-NS PMX 500 100 mg In Saline 1 100ml.bag @ 100 mls/hr IVPB Q8HR [facility] Rx#:[id number] Output: Urine 50 365 285 Emesis 100 Other: Voiding Method Indwelling Catheter Indwelling Catheter Indwelling Catheter - Exam GENERAL: The patient is alert and oriented x3, not in any acute distress. Well developed, well nourished. HEENT: Pupils are round and equally reacting to light. EOMI. No scleral icterus. No conjunctival pallor. Normocephalic, atraumatic. No pharyngeal erythema. No thyromegaly. CARDIOVASCULAR: S1 and S2 present. No murmurs, rubs, or gallops. PULMONARY: Chest is clear to auscultation, no wheezing or crackles. ABDOMEN: Soft, nontender, nondistended, normoactive bowel sounds. No palpable organomegaly. MUSCULOSKELETAL: No joint swelling or deformity. Left knee surgical incision seen EXTREMITIES: No cyanosis, clubbing, or pedal edema. NEUROLOGICAL: Gross neurological examination did not reveal any focal deficits. SKIN: No rashes. - Labs CBC & Chem 7: 03/14/23 04:34 03/14/23 04:34 Labs: Abnormal Lab Results - Last 24 Hours (Table) 03/13/23 03/13/23 03/14/23 Range/Units 13:17 15:23 00:12 WBC (3.8-10.6) k/uL RBC (4.30-5.90) m/uL Hgb (13.0-17.5) gm/dL Hct (39.0-53.0) % Neutrophils # (Manual) (1.3-7.7) k/uL Lymphocytes # (Manual) (1.0-4.8) k/uL Metamyelocytes # (Man) (0) k/uL Sodium 135 L (137-145) mmol/L Chloride 109 H (98-107) mmol/L Carbon Dioxide 19 L (22-30) mmol/L BUN 42 H (9-20) mg/dL POC Glucose (mg/dL) 165 H 137 H (70-110) mg/dL Calcium 7.2 L (8.4-10.2) mg/dL Total Protein (6.3-8.2) g/dL Albumin (3.5-5.0) g/dL 03/14/23 03/14/23 Range/Units 04:34 04:34 WBC 17.9 H (3.8-10.6) k/uL RBC 3.13 L (4.30-5.90) m/uL Hgb 9.8 L (13.0-17.5) gm/dL Hct 30.3 L (39.0-53.0) % Neutrophils # (Manual) 16.80 H (1.3-7.7) k/uL Lymphocytes # (Manual) 0.72 L (1.0-4.8) k/uL Metamyelocytes # (Man) 0.18 H (0) k/uL Sodium 136 L (137-145) mmol/L Chloride 108 H (98-107) mmol/L Carbon Dioxide (22-30) mmol/L BUN 43 H (9-20) mg/dL POC Glucose (mg/dL) (70-110) mg/dL Calcium 7.3 L (8.4-10.2) mg/dL Total Protein 4.0 L (6.3-8.2) g/dL Albumin 1.9 L (3.5-5.0) g/dL Assessment and Plan Assessment: New-onset atrial fibrillation with elevated troponin Massively dilated distal esophagus which could be secondary to postsurgical obstruction versus achalasia. Hypertension, Patient was hypotensive on admission Possible sepsis with leukocytosis and tachycardia Recent left knee arthroplasty History of benign prostatic hypertrophy with large prostate. 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 Continue same treatment. Continue with symptomatic treatment. Resume home medication. Monitor labs and vitals. DVT and GI prophylaxis. Further recommendations as per clinical course of the patient
[2023-03-14] MEDS ORDERED: ALPRAZolam 0.5 MG TAB PO PRN (20:05)
[2023-03-14] MEDS ORDERED: LORazepam 2 MG/ML INJ IV PRN (20:05)
[2023-03-14] MEDS: AMIODARONE 200 MG TAB PO SCH (20:33)
--- NOTE | 2023-03-14 20:52 | P.PN ---
Subjective Progress Note Date: 03/14/23 Principal diagnosis: Persistent atrial fibrillation The patient is an 82-year-old gentleman with no significant past medical history who was admitted to the hospital with gastrointestinal bleeding on we consulted to see the patient for atrial fibrillation with rapid ventricular response which is known to him. He underwent an echo which revealed normal LV systolic function was no significant valvular abnormalities March 142022 The patient was seen and evaluated this morning. He was transferred to the intensive care unit because he is. Yesterday. He continues to be an issue fibrillation with overall controlled heart rate. Currently he is on amiodarone IV which is going to stop and switch him to amiodarone by mouth. He currently on any anticoagulation because of GI bleeding. That is in workup right now. The examination is remarkable for irregular rhythm with overall controlled heart rates. Assessment Gastrointestinal bleeding Anemia secondary to gastrointestinal bleeding Persistent atrial fibrillation Multiple comorbid conditions Aspiration pneumonia Plan Continue the current medical regimen DC amiodarone IV and switch the patient to amiodarone by mouth Continue holding on anticoagulation at this point Follow-up with the patient Objective - Vital Signs Vital signs: Vital Signs Temp 97.6 F 03/14/23 16:00 Pulse 118 H 03/14/23 19:00 Resp 28 H 03/14/23 19:00 BP 112/73 03/14/23 19:00 Pulse Ox 99 03/14/23 19:00 FiO2 75 03/14/23 16:20 Intake & Output 03/14/23 03/14/23 03/15/23 06:59 18:59 06:59 Intake Total 6940.527 2665.068 10 Output Total 365 650 Balance 0469.512 4767.068 10 Weight 81.2 kg Intake: IV 1330 1630 10 Dextrose 5%-0.9% NaCl 1, 100 000 ml @ 100 mls/hr IV . Q10H [facility] Rx#:[id number] Invasive Line 1 30 30 10 LR @ 100 1100 1300 Potassium Chloride 10 meq 200 In Water For Injection 1 100ml.bag @ 100 mls/hr IVPB Q1H [facility] Rx#: [id number] metroNIDAZOLE-NS PMX 500 100 100 mg In Saline 1 100ml.bag @ 100 mls/hr IVPB Q8HR [facility] Rx#:[id number] Intake, IV Titration 421.393 70.068 Amount Norepinephrine 4 mg In 421.393 70.068 Sodium Chloride 0.9% 250 ml @ 0.03 MCG/KG/MIN 9. 021 mls/hr IV .Q24H [facility] Rx#:[id number] Output: Urine 365 650 Other: Voiding Method Indwelling Catheter Indwelling Catheter - Labs CBC & Chem 7: 03/14/23 04:34 03/14/23 04:34 Labs: Abnormal Lab Results - Last 24 Hours (Table) 03/14/23 03/14/23 03/14/23 Range/Units 00:12 04:34 04:34 WBC 17.9 H (3.8-10.6) k/uL RBC 3.13 L (4.30-5.90) m/uL Hgb 9.8 L (13.0-17.5) gm/dL Hct 30.3 L (39.0-53.0) % Neutrophils # (Manual) 16.80 H (1.3-7.7) k/uL Lymphocytes # (Manual) 0.72 L (1.0-4.8) k/uL Metamyelocytes # (Man) 0.18 H (0) k/uL Sodium 135 L 136 L (137-145) mmol/L Chloride 109 H 108 H (98-107) mmol/L Carbon Dioxide 19 L (22-30) mmol/L BUN 42 H 43 H (9-20) mg/dL Calcium 7.2 L 7.3 L (8.4-10.2) mg/dL Total Protein 4.0 L (6.3-8.2) g/dL Albumin 1.9 L (3.5-5.0) g/dL Microbiology - Last 24 Hours (Table) 03/12/23 12:27 Blood Culture - Preliminary Blood
[2023-03-15] MEDS: MORPHINE SULFATE 4 MG/ML SYRINGE IV PRN (02:38)
[2023-03-15] MEDS: ONDANSETRON 4 MG/2 ML VIAL IVP PRN (03:58)
[2023-03-15] MEDS: LACTATED RINGERS 1,000 ML IV SCH (05:54)
--- NOTE | 2023-03-15 08:10 | P.PN ---
Subjective Progress Note Date: 03/15/23 Principal diagnosis: Persistent atrial fibrillation The patient is an 82-year-old gentleman with no significant past medical history who was admitted to the hospital with gastrointestinal bleeding on we consulted to see the patient for atrial fibrillation with rapid ventricular response which is known to him. He underwent an echo which revealed normal LV systolic function was no significant valvular abnormalities March 142022 The patient was seen and evaluated this morning. He was transferred to the intensive care unit because he is. Yesterday. He continues to be an issue fibrillation with overall controlled heart rate. Currently he is on amiodarone IV which is going to stop and switch him to amiodarone by mouth. He currently on any anticoagulation because of GI bleeding. That is in workup right now. March 152022 The patient was seen and evaluated this morning. He continues to be in atrial fibrillation with controlled heart rate. He is not on any anticoagulation at this point because of the GI bleeding. Overall he is stable hemodynamically. From a cardiovascular standpoint of view, we will continue current medical regimen. The examination is remarkable for irregular rhythm with overall controlled heart rates. Assessment Gastrointestinal bleeding Anemia secondary to gastrointestinal bleeding Persistent atrial fibrillation Multiple comorbid conditions Aspiration pneumonia Plan Continue the current medical regimen Continue oral amiodarone Objective - Vital Signs Vital signs: Vital Signs Temp 97.6 F 03/15/23 04:00 Pulse 91 03/15/23 06:00 Resp 23 03/15/23 06:00 BP 95/66 03/15/23 06:00 Pulse Ox 91 L 03/15/23 05:45 FiO2 60 03/15/23 07:41 Intake & Output 03/14/23 03/15/23 03/15/23 18:59 06:59 18:59 Intake Total 6933.613 8451 Output Total 650 405 Balance 1050.068 725 Weight 84.1 kg Intake: IV 1630 1130 Invasive Line 1 30 30 LR @ 100 1300 1100 Potassium Chloride 10 meq 200 In Water For Injection 1 100ml.bag @ 100 mls/hr IVPB Q1H [facility] Rx#: [id number] metroNIDAZOLE-NS PMX 500 100 mg In Saline 1 100ml.bag @ 100 mls/hr IVPB Q8HR [facility] Rx#:[id number] Intake, IV Titration 70.068 Amount Norepinephrine 4 mg In 70.068 Sodium Chloride 0.9% 250 ml @ 0.03 MCG/KG/MIN 9. 021 mls/hr IV .Q24H [facility] Rx#:[id number] Output: Urine 650 405 Other: Voiding Method Indwelling Catheter Indwelling Catheter - Labs CBC & Chem 7: 03/14/23 04:34 03/14/23 04:34 Labs: Microbiology - Last 24 Hours (Table) 03/12/23 12:27 Blood Culture - Preliminary Blood
--- NOTE | 2023-03-15 09:13 | P.PN ---
Subjective Progress Note Date: 03/15/23 Principal diagnosis: Dysphagia, large hiatal hernia This is a 82-year-old male who recently had a left total knee surgery on 02/27/2023, he was discharged to subacute rehab. He states he went home on Saturday. At that time he started having difficulty with swallowing solids and liquids. He also started having shortness of breath especially with ambulation, coughing up brown sputum as well as he believes vomiting some this well. He has been having increased weakness as well. His past medical history includes hypertension, osteoarthritis, prostate disorder and hiatal hernia surgery 3 which she states was many years ago. He states his last one was in 1999. He denies any heartburn, he has not been taking any heartburn medication. States he does have some lower abdominal pain, he has been constipated for the last 3-4 days. He states the phlegm that he is coughing up has a horrible taste. Denies any fevers or chills. No chest pain. Denies any recent EGD or colonoscopy. He had new onset of atrial fibrillation on this admission and started on a heparin drip. Also underwent a CT of the abdomen and pelvis which reported massively dilated distal esophagus and the inferiorly with ingested contents. Findings could be secondary to postsurgical obstruction given multiple surgical clips at the gastroesophageal junction versus secondary to achalasia. Further evaluation of the esophagus is recommended. Consider NG tube for evacuation of distal esophagitis. Less somatically correlate serum PSA and nonobstructing left 4 mm calculus. 03/14/2023 Patient seen and examined as a follow-up. Yesterday he underwent upper endoscopy with findings of a dilated fluid-filled esophagus a large hiatal hernia with evidence of gastric volvulus. There was punctate-like ulcerations noted in the dilated distal esophagus status post biopsies. During the procedure the patient had to be intubated, he also had NG tube placed. He had a large volume aspiration and was transferred to the ICU yesterday afternoon. Gen. surgery was consulted for the large hiatal hernia. The recommendation was to transfer to tertiary center. Patient is currently in the ICU on AIRVO reported liters/m. Currently has NG tube placed with approximately 100 mL of dark output. Patient has made himself a no code and does not wish to be transferred to a tertiary center and states he does not want any further surgeries. He denies any abdominal pain at this time. He is not having any nausea or vomiting. 03/15/2023 Patient seen and examined today in the ICU. He remains on AIRVO. He pulled out his NG tube last night. Okay to keep out. He has not having any abdominal pain, nausea, or vomiting. Denies any choking or coughing. Family is supposed to come in today according to the patient to talk with hospice representatives. He continues to state that he does not want any surgical intervention. Objective - Vital Signs Vital signs: Vital Signs Temp 97.6 F 03/15/23 04:00 Pulse 91 03/15/23 06:00 Resp 23 03/15/23 06:00 BP 95/66 03/15/23 06:00 Pulse Ox 91 L 03/15/23 05:45 FiO2 60 03/15/23 04:22 Intake & Output 03/14/23 03/15/23 03/15/23 18:59 06:59 18:59 Intake Total 3438.471 8829 Output Total 650 405 Balance 1050.068 725 Weight 84.1 kg Intake: IV 1630 1130 Invasive Line 1 30 30 LR @ 100 1300 1100 Potassium Chloride 10 meq 200 In Water For Injection 1 100ml.bag @ 100 mls/hr IVPB Q1H [facility] Rx#: [id number] metroNIDAZOLE-NS PMX 500 100 mg In Saline 1 100ml.bag @ 100 mls/hr IVPB Q8HR [facility] Rx#:[id number] Intake, IV Titration 70.068 Amount Norepinephrine 4 mg In 70.068 Sodium Chloride 0.9% 250 ml @ 0.03 MCG/KG/MIN 9. 021 mls/hr IV .Q24H [facility] Rx#:[id number] Output: Urine 650 405 Other: Voiding Method Indwelling Catheter Indwelling Catheter - Exam General appearance: The patient is alert, oriented, appears in no acute distress. HET: Head is normocephalic and atraumatic. Conjunctiva pink. Sclera anicteric. Neck: Supple without lymphadenopathy. Abdomen: Soft, nontender, nondistended with bowel sounds. No guarding or rigidity. Extremities: Normal skin color and turgor. No pedal edema Skin: No rashes, no jaundice Neurological: No focal deficits. Alert and oriented. - Labs CBC & Chem 7: 03/14/23 04:34 03/14/23 04:34 Labs: Microbiology - Last 24 Hours (Table) 03/12/23 12:27 Blood Culture - Preliminary Blood Assessment and Plan (1) Dysphagia Narrative/Plan: 82-year-old male who underwent recent left total knee replacement followed by subacute rehab was discharged on Saturday patient states that time he has had shortness of breath especially with exertion, a productive cough and has been having difficulty with swallowing. States he's having difficulty with both solid and liquids and has only had a couple of oatmeal and chicken noodle soup since Saturday. He is now having difficulty holding water down as well. He's had a productive cough with a purulent sputum. And on admission was noted to have new onset atrial fibrillation started on heparin drip. Patient had a long standing history of GERD status post 3 hiatal hernia surgeries last one being in [address]. CT abdomen and pelvis shows a dilated esophagus with food contents. He denies any recent EGD or colonoscopy. Recommend proceeding with upper endoscopy tomorrow if cleared by cardiology. Keep nothing by mouth except for ice chips. 03/14/2023 Patient status post upper endoscopy with findings of dilated fluid-filled esophagus and large hiatal hernia evidence of gastric bubble S, punctuated like ulcerations noted in the dilated distal esophagus and post biopsies. Gen. surgery was consulted with recommendation for transfer to tertiary center for further evaluation and care. At this time patient is a no code and is declining transfer and requesting to meet with hospice. Current Visit: Yes Status: Acute Code(s): R13.10 - DYSPHAGIA, UNSPECIFIED SNOMED Code(s): 32380229 (2) Dilatation of esophagus Current Visit: Yes Status: Acute Code(s): K22.89 - OTHER SPECIFIED DISEASE OF ESOPHAGUS SNOMED Code(s): 84141713 (3) Hiatal hernia Current Visit: Yes Status: Acute Code(s): K44.9 - DIAPHRAGMATIC HERNIA WITHOUT OBSTRUCTION OR GANGRENE SNOMED Code(s): 90647602 (4) Shortness of breath Current Visit: Yes Status: Acute Code(s): R06.02 - SHORTNESS OF BREATH SNOMED Code(s): 410434972 (5) Productive cough Current Visit: Yes Status: Acute Code(s): R05.8 - OTHER SPECIFIED COUGH SNOMED Code(s): 45437199 (6) New onset a-fib Current Visit: Yes Status: Acute Code(s): I48.91 - UNSPECIFIED ATRIAL FIBRILLATION SNOMED Code(s): 01090045 (7) Leukocytosis Current Visit: No Status: Acute Code(s): D72.829 - ELEVATED WHITE BLOOD CELL COUNT, UNSPECIFIED SNOMED Code(s): 694160496 (8) Status post total knee replacement, left Current Visit: No Status: Acute Code(s): Z96.652 - PRESENCE OF LEFT A RTIFICIAL KNEE JOINT SNOMED Code(s): 4247556430103 (9) Aspiration into airway Current Visit: Yes Status: Acute Code(s): T17.908A - UNSP FB IN RESP TRACT, PART UNSP CAUSING OTH INJURY, INIT SNOMED Code(s): 431449761 Plan: 1. Continue symptomatic and supportive care 2. May have sips of clear liquids 3. Keep NG tube out 4. Gen. surgery on consult, with recommendations for transfer to tertiary center 5. Continue ICU recommendations 6. Patient declining transfer to tertiary center, requesting hospice consult 7. No further GI workup indicated Thank you for allowing us to participate in the care of the patient, the GI service will sign off, gastroenterology will not be available at the hospital this weekend and through next week. Dr. Karyn Chin I agree with the dictator's note, documented as a scribe by Sarah Aguilar.
[2023-03-15] MEDS: PANTOPRAZOLE 40 MG/10 ML VIAL IVP SCH ×2 (09:17→20:53)
[2023-03-15] MEDS: AMIODARONE 200 MG TAB PO SCH ×2 (09:18→20:53)
[2023-03-15] MEDS: bisacodyL 10 MG SUPP RECTAL SCH (09:18)
--- NOTE | 2023-03-15 10:29 | P.PN ---
Subjective Progress Note Date: 03/15/23 CHIEF COMPLAINT: Dysphagia HISTORY OF PRESENT ILLNESS: Surgical service consulted for dilated esophagus. Patient with dysphagia and nausea and vomiting on admission. Status post EGD with GI service had shown dilated fluid-filled esophagus with large hiatal hernia and evidence of gastric volvulus. Punctate-like ulcerations noted in the dilated distal esophagus. Patient has NG tube in place with minimal output. Denies any abdominal pain. Patient is more lethargic today per nursing staff. Currently sleeping. Afebrile. Remains on high flow oxygen. WBC 17.9 Hgb 9.8 platelets 405 Na 136 potassium 3.6 creatinine 0.81. Patient and family are hospice meeting today PHYSICAL EXAM: VITAL SIGNS: Reviewed. GENERAL: Well-developed in no acute distress. ABDOMEN: Soft. Nondistended. Nontender. NEUROLOGIC: Sleeping ASSESSMENT: 1. 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 Dilated esophagus 3. Aspiration pneumonia PLAN: -Recommend transfer to tertiary care center for hiatal hernia repair when stable and if patient is agreeable. Patient does not want transfer or surgery for hiatal hernia. -Hospice meeting today with patient and family -Continue NG tube for decompression -Continue supportive care Physician Dinkey Operator Slate note has been reviewed by physician. Signing provider agrees with the documented findings, assessment, and plan of care. I have personally seen and examined the patient, reviewed the FNP /PAs history, exam and MDM and agree with the assessment and plan as written. Based on total visit time, I have performed more than 50% of the visit. As above: Patient is somewhat lethargic today. Labs noted. Patient previously had continued to state he was not interested in surgery or transfer. Apparently family meeting with hospice today. Objective - Vital Signs Vital signs: Vital Signs Temp 97.2 F L 03/15/23 08:00 Pulse 101 H 03/15/23 08:00 Resp 30 H 03/15/23 08:00 BP 117/82 03/15/23 08:00 Pulse Ox 100 03/15/23 08:00 FiO2 82 03/15/23 08:00 Intake & Output 03/14/23 03/15/23 03/15/23 18:59 06:59 18:59 Intake Total 6417.841 9043 210 Output Total 650 405 125 Balance 1050.068 725 85 Weight 84.1 kg Intake: IV 1630 1130 210 Invasive Line 1 30 30 10 LR @ 100 1300 1100 200 Potassium Chloride 10 meq 200 In Water For Injection 1 100ml.bag @ 100 mls/hr IVPB Q1H [facility] Rx#: [id number] metroNIDAZOLE-NS PMX 500 100 mg In Saline 1 100ml.bag @ 100 mls/hr IVPB Q8HR [facility] Rx#:[id number] Intake, IV Titration 70.068 Amount Norepinephrine 4 mg In 70.068 Sodium Chloride 0.9% 250 ml @ 0.03 MCG/KG/MIN 9. 021 mls/hr IV .Q24H [facility] Rx#:[id number] Output: Urine 650 405 125 Other: Voiding Method Indwelling Catheter Indwelling Catheter - Labs CBC & Chem 7: 03/14/23 04:34 03/14/23 04:34 Labs: Microbiology - Last 24 Hours (Table) 03/12/23 12:27 Blood Culture - Preliminary Blood
--- NOTE | 2023-03-15 11:35 | P.PN ---
Subjective Progress Note Date: 03/15/23 Principal diagnosis: Respiratory failure. Pulmonary consult dated 03/13/2023. 82-year-old male who presented to the emergency department on March 11, complaining of difficulty in breathing, and weakness. The patient had recent knee surgery in February. He was on his left knee. I believe it was the left knee replacement. He subsequently was discharged to subacute rehab, and discharged from there, 3 or 4 days prior to his admission to the emergency room on March 11. Apparently when the visiting nurse checked him, the patient had a low blood pressure, and, was not really eating or drinking very much. For that reason, he was directed back into the emergency room. The patient has a history of hypertension, DJD, hiatal hernia with previous surgeries 3 of his hiatal hernia, recent left knee surgery, and prostate disease. The patient also has a history of anxiety and depression, and is a lifelong nonsmoker. Today, the patient was undergoing an EGD, and apparently had a large-volume aspiration. The patient was taken to postoperative recovery area, and then transferred up to the third floor, and we were asked to see him. The patient was on 6 L, and his saturations are only in the low to mid 80s. I asked him to place a nonrebreather on the patient, and, transfer him to the intensive care unit for further monitoring and management. Laboratory data includes a white count of 14.5, hemoglobin 10.1, hematocrit 31.7, and a platelet count of 522,000. Sodium 135, potassium 3.5, chlorides 102, CO2 29, BUN 45, creatinine 0.77. Glucose was 137. Albumin 2.4. The patient's chest x-ray, done today, after the procedure, reveals bibasilar patchy infiltrates, left greater than right. This likely represents aspiration. Progress note dated 03/14/2023. The patient was transferred to the intensive care unit, because of a large- volume aspiration following EGD. The patient is seen today in room 257, intensive care unit. The patient was placed on AIRVO with settings of 45 L/m, with an FiO2 of 82%. The patient's getting lactated Ringer's at 100 mL an hour, amiodarone at 0.5 mg/m, and norepinephrine for micrograms per minute. Clinically, the patient looks much better today than he did yesterday. White count 17.9, hemoglobin 9.8, hematocrit 30.3, and platelet count was normal. Sodium 136, potassium 3.6, chlorides 108, CO2 22, BUN 43, and creatinine 0.81. Chest x-ray shows a right basilar consolidation, consistent with aspiration. There is a small left-sided pleural effusion, and some atelectasis or infiltrate at the left lung base. Progress note dated 03/15/2023. 82-year-old gentleman, no code, transferred to the intensive care unit following an EGD, with a large-volume aspiration. The patient is currently seen today in room 257. He continues on AIRVO, at 45 L/m with an FiO2 of 82%. He is getting lactated Ringer's at 100 mL an hour. He's very somnolent and lethargic. Xanax Ativan are discontinued. In addition, norepinephrine and Cordarone or discontinued from the medical list. According to the nurse, the family is considering possible hospice referral. The patient's overall prognosis is very poor. He is a DO NOT RESUSCITATE patient. No new labs today. Objective - Vital Signs Vital signs: Vital Signs Temp 97.2 F L 03/15/23 08:00 Pulse 101 H 03/15/23 08:00 Resp 30 H 03/15/23 08:00 BP 117/82 03/15/23 08:00 Pulse Ox 100 03/15/23 08:00 FiO2 50 03/15/23 11:17 Intake & Output 03/14/23 03/15/23 03/15/23 18:59 06:59 18:59 Intake Total 6467.431 3508 210 Output Total 650 405 125 Balance 1050.068 725 85 Weight 84.1 kg Intake: IV 1630 1130 210 Invasive Line 1 30 30 10 LR @ 100 1300 1100 200 Potassium Chloride 10 meq 200 In Water For Injection 1 100ml.bag @ 100 mls/hr IVPB Q1H [facility] Rx#: [id number] metroNIDAZOLE-NS PMX 500 100 mg In Saline 1 100ml.bag @ 100 mls/hr IVPB Q8HR [facility] Rx#:[id number] Intake, IV Titration 70.068 Amount Norepinephrine 4 mg In 70.068 Sodium Chloride 0.9% 250 ml @ 0.03 MCG/KG/MIN 9. 021 mls/hr IV .Q24H [facility] Rx#:[id number] Output: Urine 650 405 125 Other: Voiding Method Indwelling Catheter Indwelling Catheter Indwelling Catheter - Exam Mild respiratory distress with mild conversational dyspnea. Currently on AIRVO. HEENT examination is grossly unremarkable. Neck supple. Full range of motion. No adenopathy thyromegaly or neck vein distention. Cardiovascular examination reveals regular rhythm rate. S1-S2 normal. No S3 or S4. No discernible murmur noted. Heart sounds are distant. Heart rate 101 bpm. Lungs reveal coarse bilateral breath sounds. Breath sounds are diminished throughout. Most abnormal sounds are in the right base. No crackles. Saturations are 100 % on AIRVO. Abdomen soft bowel sounds are heard. No masses or tenderness. Extremities are intact. No cyanosis clubbing or edema. Skin is without rash or lesion. Neurologic examination reveals a very lethargic/somnolent patient. - Labs CBC & Chem 7: 03/14/23 04:34 03/14/23 04:34 Labs: Microbiology - Last 24 Hours (Table) 03/12/23 12:27 Blood Culture - Preliminary Blood Assessment and Plan Assessment: Acute hypoxemic respiratory failure secondary to acute gastric acid aspiration, following an EGD. Patient at high risk for developing acute respiratory distress syndrome. History of hiatal hernia, with surgery 3. History of hypertension. History of BPH. Status post recent left total knee arthroplasty, 02/27/2023. History of anxiety/depression. Plan: Plan dated 03/13/2023. The patient is transferred to the intensive care unit. That way, the patient can be monitored and managed more closely. The patient is apparently a DO NOT RESUSCITATE patient. The patient had a large-volume gastric acid aspiration, and developed acute hypoxemic respiratory failure. Chest x-ray shows bibasilar infiltrates, left greater than right. Additional recommendations and suggestions are forthcoming. Prognosis is certainly guarded. The patient's at high risk for developing acute respiratory distress syndrome. Plan dated 03/14/2023. The patient is seen in the intensive care unit, room 257. The patient was initially in the postop area, transferred to [facility], and then transferred to the intensive care unit. She's currently on AIRVO. Pro-calcitonin level was quite low at 0.04. The patient likely has gastric acid aspiration, and typically antibiotics are not recommended. They will be discontinued. Labs, x-rays, medications are reviewed. Prognosis is guarded. We will continue to follow the patient make recommendations along the way. The patient is on amiodarone at 0.5 mg/m, and norepinephrine at 4 mcg/m. No additional recommendations are made. Plan dated 03/15/2023. The patient's respiratory status is very poor. He continues on AIRVO at 45 L/m with an FiO2 of 82%. He is getting lactated Ringer's at 100 cc per hour. In addition, because he so lethargic, Xanax and Ativan are discontinued. Apparently according to the nurse, the family is considering a hospice referral. Labs, x-rays, and medications are reviewed. The patient's overall prognosis is poor. The amiodarone, and norepinephrine, are discontinued from his medication list. Time with Patient: Less than 30
--- NOTE | 2023-03-15 16:16 | P.PN ---
Subjective Progress Note Date: 03/15/23 82 years old male with multiple medical problems including Hypertension, Osteoarthritis . Benign prostatic hypertrophy Patient was recently discharged from the hospital -03/01 for left knee osteoarthritis status post total left knee arthroplasty. From the patient went to [facility] rehab, he thinks for about 4 days, and was discharged from [facility] to home last Saturday but he states he did not get his prescription with him and he was not taking his medication for the last 3 days on the top of that he was deep vomiting, he said that he fell backwards on Saturday but without syncope, he said he lost his balance. He was not eating and drinking well and with recurrent vomiting over the last 3 days Patient complains from epigastric pain and tenderness which is mild, nonradiating. Aborted/10 in severity with pain medication this morning to 0/10. None specific. Patient had no bowel movement for the last 4 days. He denies any urinary symptoms, no headache dizziness weakness or numbness. he never smoked no alcohol or illicit drugs patient says that he had 3 surgery for his hiatal hernia, last one was in 1999 at [facility], he said that his surgeon left out of the country Currently blood pressure is 131/77, heart rate was 105. No fever Labs showing leukocytosis of 21.7, previously was 11.7 on 03/04/2023 hemoglobin 11.4. Platelet elevated. Sodium 131. Troponin is elevated at 0.04. Liver enzymes are unremarkable. Creatinine 1.1. CT of the abdomen and pelvis: Massively dilated distal esophagus which could be secondary to postsurgical obstruction versus achalasia. A large prostate related for PSA. An non-obstructing left 4 mm calculus EKG showing atrial fibrillation with a heart rate of 101. 03/14/2023 Patient is seen and evaluated at bedside in ICU; status post EGD which revealed dilated fluid-filled esophagus with large hiatal hernia and evidence of gastric volvulus; punctate ulcerations were noted on distal esophagus -- Patient was transferred to ICU post EGD with aspiration; chest x-ray revealed right basilar consolidation with left basilar patchy airspace opacities consistent with aspiration pneumonia -- Patient has an NG tube in and is recommended transferred to a tertiary care center for any further management of large hiatal hernia and dilated esophagus; she does have history of 3 prior hiatal hernia repair -- Patient and family have decided against transferred on any further care and is requesting consultation with hospice care for comfort care measures 03/15/2023 Patient is seen and evaluated with daughter at bedside; all above. Questions were answered to their satisfaction Patient was transferred to the intensive care unit following an EGD, with a large-volume aspiration; he didn't on AIRVO, at 45 L/m with an FiO2 of 82%. He is getting lactated Ringer's at 100 mL an hour. He's very somnolent and lethargic. Xanax Ativan are discontinued. In addition, norepinephrine and Cordarone or discontinued from the medical list. According to the nurse, the family is considering possible hospice referral. The patient's overall prognosis is very poor. He is a DO NOT RESUSCITATE patient. No new labs today. -- Patient to be admitted to hospice versus comfort care once family is making patient Objective - Vital Signs Vital signs: Vital Signs Temp 97.2 F L 03/15/23 08:00 Pulse 101 H 03/15/23 08:00 Resp 30 H 03/15/23 08:00 BP 117/82 03/15/23 08:00 Pulse Ox 100 03/15/23 08:00 FiO2 82 03/15/23 08:00 Intake & Output 03/14/23 03/15/23 03/15/23 18:59 06:59 18:59 Intake Total 2855.059 4344 210 Output Total 650 405 125 Balance 1050.068 725 85 Weight 84.1 kg Intake: IV 1630 1130 210 Invasive Line 1 30 30 10 LR @ 100 1300 1100 200 Potassium Chloride 10 meq 200 In Water For Injection 1 100ml.bag @ 100 mls/hr IVPB Q1H [facility] Rx#: [id number] metroNIDAZOLE-NS PMX 500 100 mg In Saline 1 100ml.bag @ 100 mls/hr IVPB Q8HR [facility] Rx#:[id number] Intake, IV Titration 70.068 Amount Norepinephrine 4 mg In 70.068 Sodium Chloride 0.9% 250 ml @ 0.03 MCG/KG/MIN 9. 021 mls/hr IV .Q24H [facility] Rx#:[id number] Output: Urine 650 405 125 Other: Voiding Method Indwelling Catheter Indwelling Catheter Indwelling Catheter - Exam GENERAL: The patient is alert and oriented x3, not in any acute distress. Well developed, well nourished. HEENT: Pupils are round and equally reacting to light. EOMI. No scleral icterus. No conjunctival pallor. Normocephalic, atraumatic. No pharyngeal erythema. No thyromegaly. CARDIOVASCULAR: S1 and S2 present. No murmurs, rubs, or gallops. PULMONARY: Chest is clear to auscultation, no wheezing or crackles. ABDOMEN: Soft, nontender, nondistended, normoactive bowel sounds. No palpable organomegaly. MUSCULOSKELETAL: No joint swelling or deformity. Left knee surgical incision seen EXTREMITIES: No cyanosis, clubbing, or pedal edema. NEUROLOGICAL: Gross neurological examination did not reveal any focal deficits. SKIN: No rashes. - Labs CBC & Chem 7: 03/14/23 04:34 03/14/23 04:34 Labs: Microbiology - Last 24 Hours (Table) 03/12/23 12:27 Blood Culture - Preliminary Blood Assessment and Plan Assessment: New-onset atrial fibrillation with elevated troponin Massively dilated distal esophagus which could be secondary to postsurgical obstruction versus achalasia. Hypertension, Patient was hypotensive on admission Possible sepsis with leukocytosis and tachycardia Recent left knee arthroplasty History of benign prostatic hypertrophy with large prostate. 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 Continue same treatment. Continue with sy mptomatic treatment. Resume home medication. Monitor labs and vitals. DVT and GI prophylaxis. Further recommendations as per clinical course of the patient
[2023-03-15 16:46] LABS: Glucose,Whole Blood 82 mg/dL (70-110)
[2023-03-16] MEDS: MORPHINE SULFATE 4 MG/ML SYRINGE IV PRN ×2 (01:02→09:38)
[2023-03-16] MEDS: LACTATED RINGERS 1,000 ML IV SCH (06:15)
[2023-03-16 06:16] LABS: Glucose,Whole Blood 73 mg/dL (70-110)
--- NOTE | 2023-03-16 07:01 | P.PN ---
Progress Note - Text Progress Note Date: 03/16/23 Patient remains in the ICU. It is unclear if the patient's been made comfort care or hospice. No surgical intervention is planned.
[2023-03-16 07:13] LABS: Glucose,Whole Blood 69 mg/dL (70-110)
[2023-03-16] MEDS ORDERED: Dextrose 25% Syringe (PEDs) 10 ML SYRINGE IVP STA (07:13)
[2023-03-16] MEDS ORDERED: DEXTROSE 50% SYRINGE 50 ML IVP ONE (07:33)
[2023-03-16] MEDS ORDERED: DEXTROSE 50% SYRINGE 50 ML IVP STA (07:34)
--- NOTE | 2023-03-16 08:20 | P.PN ---
Subjective Progress Note Date: 03/16/23 Principal diagnosis: Persistent atrial fibrillation The patient is an 82-year-old gentleman with no significant past medical history who was admitted to the hospital with gastrointestinal bleeding on we consulted to see the patient for atrial fibrillation with rapid ventricular response which is known to him. He underwent an echo which revealed normal LV systolic function was no significant valvular abnormalities March 142022 The patient was seen and evaluated this morning. He was transferred to the intensive care unit because he is. Yesterday. He continues to be an issue fibrillation with overall controlled heart rate. Currently he is on amiodarone IV which is going to stop and switch him to amiodarone by mouth. He currently on any anticoagulation because of GI bleeding. That is in workup right now. March 152022 The patient was seen and evaluated this morning. He continues to be in atrial fibrillation with controlled heart rate. He is not on any anticoagulation at this point because of the GI bleeding. Overall he is stable hemodynamically. From a cardiovascular standpoint of view, we will continue current medical regimen. March 162022 The patient was seen and evaluated this morning. He is in atrial fibrillation with controlled heart rate. History of hypoxic requiring 3 L of oxygen. On examination he does have bilateral upper and lower extremity edema and diminished breathing sounds bilaterally. The pressure has been stable. He is not on anticoagulation in the light of gastrointestinal bleeding. The examination is remarkable for irregular rhythm with overall controlled heart rates. Assessment Gastrointestinal bleeding Anemia secondary to gastrointestinal bleeding Persistent atrial fibrillation Multiple comorbid conditions Aspiration pneumonia Plan Continue the current medical regimen Continue the current dose of amiodarone orally Give the patient one dose of Lasix IV in the light of edema Follow-up with the patient Objective - Vital Signs Vital signs: Vital Signs Temp 98 F 03/16/23 04:00 Pulse 104 H 03/16/23 06:00 Resp 22 03/16/23 06:00 BP 108/80 03/16/23 06:00 Pulse Ox 96 03/16/23 06:00 FiO2 35 03/16/23 06:00 Intake & Output 03/15/23 03/16/23 03/16/23 18:59 06:59 18:59 Intake Total 680 190 Output Total 610 855 Balance 70 -665 Weight 84.1 kg Intake: IV 680 130 Invasive Line 1 20 LR @ 100 600 Lactated Ringers 1,000 ml 60 130 @ 10 mls/hr IV .Q24H [facility] Rx#:[id number] Oral 60 Output: Urine 610 855 Other: Voiding Method Indwelling Catheter Indwelling Catheter - Labs CBC & Chem 7: 03/14/23 04:34 03/14/23 04:34 Labs: Abnormal Lab Results - Last 24 Hours (Table) 03/16/23 Range/Units 07:11 POC Glucose (mg/dL) 69 L (70-110) mg/dL Microbiology - Last 24 Hours (Table) 03/12/23 12:27 Blood Culture - Preliminary Blood
[2023-03-16] MEDS ORDERED: FUROSEMIDE 10 MG/ML 2 ML VIAL IV ONE (08:28)
[2023-03-16 09:06] VITALS: BMI 28.1
[2023-03-16] MEDS: AMIODARONE 200 MG TAB PO SCH ×2 (09:38→19:50)
[2023-03-16] MEDS: bisacodyL 10 MG SUPP RECTAL SCH (09:38)
[2023-03-16] MEDS: PANTOPRAZOLE 40 MG/10 ML VIAL IVP SCH ×2 (09:38→19:50)
--- NOTE | 2023-03-16 10:41 | P.PN ---
Subjective Progress Note Date: 03/16/23 Principal diagnosis: Respiratory failure. Pulmonary consult dated 03/13/2023. 82-year-old male who presented to the emergency department on March 11, complaining of difficulty in breathing, and weakness. The patient had recent knee surgery in February. He was on his left knee. I believe it was the left knee replacement. He subsequently was discharged to subacute rehab, and discharged from there, 3 or 4 days prior to his admission to the emergency room on March 11. Apparently when the visiting nurse checked him, the patient had a low blood pressure, and, was not really eating or drinking very much. For that reason, he was directed back into the emergency room. The patient has a history of hypertension, DJD, hiatal hernia with previous surgeries 3 of his hiatal hernia, recent left knee surgery, and prostate disease. The patient also has a history of anxiety and depression, and is a lifelong nonsmoker. Today, the patient was undergoing an EGD, and apparently had a large-volume aspiration. The patient was taken to postoperative recovery area, and then transferred up to the third floor, and we were asked to see him. The patient was on 6 L, and his saturations are only in the low to mid 80s. I asked him to place a nonrebreather on the patient, and, transfer him to the intensive care unit for further monitoring and management. Laboratory data includes a white count of 14.5, hemoglobin 10.1, hematocrit 31.7, and a platelet count of 522,000. Sodium 135, potassium 3.5, chlorides 102, CO2 29, BUN 45, creatinine 0.77. Glucose was 137. Albumin 2.4. The patient's chest x-ray, done today, after the procedure, reveals bibasilar patchy infiltrates, left greater than right. This likely represents aspiration. Progress note dated 03/14/2023. The patient was transferred to the intensive care unit, because of a large- volume aspiration following EGD. The patient is seen today in room 257, intensive care unit. The patient was placed on AIRVO with settings of 45 L/m, with an FiO2 of 82%. The patient's getting lactated Ringer's at 100 mL an hour, amiodarone at 0.5 mg/m, and norepinephrine for micrograms per minute. Clinically, the patient looks much better today than he did yesterday. White count 17.9, hemoglobin 9.8, hematocrit 30.3, and platelet count was normal. Sodium 136, potassium 3.6, chlorides 108, CO2 22, BUN 43, and creatinine 0.81. Chest x-ray shows a right basilar consolidation, consistent with aspiration. There is a small left-sided pleural effusion, and some atelectasis or infiltrate at the left lung base. Progress note dated 03/15/2023. 82-year-old gentleman, no code, transferred to the intensive care unit following an EGD, with a large-volume aspiration. The patient is currently seen today in room 257. He continues on AIRVO, at 45 L/m with an FiO2 of 82%. He is getting lactated Ringer's at 100 mL an hour. He's very somnolent and lethargic. Xanax Ativan are discontinued. In addition, norepinephrine and Cordarone or discontinued from the medical list. According to the nurse, the family is considering possible hospice referral. The patient's overall prognosis is very poor. He is a DO NOT RESUSCITATE patient. No new labs today. Progress note dated 03/16/2023. 82 -year-old male, no code, transferred to the intensive care unit, following an EGD, at which time, he had a large-volume aspiration. The patient is currently seen today in room 257. He is currently on 9 L high flow oxygen, and saline at 10 mL an hour. Yesterday, the family was talking about hospice care. No new labs today. No new x-rays today. Objective - Vital Signs Vital signs: Vital Signs Temp 98.3 F 03/16/23 08:00 Pulse 109 H 03/16/23 10:00 Resp 25 H 03/16/23 10:00 BP 165/93 03/16/23 10:00 Pulse Ox 100 03/16/23 10:00 FiO2 35 03/16/23 06:00 Intake & Output 03/15/23 03/16/23 03/16/23 18:59 06:59 18:59 Intake Total 680 190 250 Output Total 610 855 250 Balance 70 -665 0 Weight 84.1 kg 84.1 kg Intake: IV 680 130 30 Invasive Line 1 20 LR @ 100 600 Lactated Ringers 1,000 ml 60 130 30 @ 10 mls/hr IV .Q24H [facility] Rx#:[id number] Oral 60 220 Output: Urine 610 855 250 Other: Voiding Method Indwelling Catheter Indwelling Catheter Indwelling Catheter - Exam Mild respiratory distress with mild conversational dyspnea. Currently on 9 L high flow oxygen nasal cannula. HEENT examination is grossly unremarkable. Neck supple. Full range of motion. No adenopathy thyromegaly or neck vein distention. Cardiovascular examination reveals regular rhythm rate. S1-S2 normal. No S3 or S4. No discernible murmur noted. Heart sounds are distant. Heart rate 109 bpm. Lungs reveal coarse bilateral breath sounds. Breath sounds are diminished throughout. Most abnormal sounds are in the right base. No crackles. Saturations are 99%. Abdomen soft bowel sounds are heard. No masses or tenderness. Extremities are intact. No cyanosis clubbing or edema. Skin is without rash or lesion. Neurologic examination reveals a very lethargic/somnolent patient. - Labs CBC & Chem 7: 03/14/23 04:34 03/14/23 04:34 Labs: Abnormal Lab Results - Last 24 Hours (Table) 03/16/23 Range/Units 07:11 POC Glucose (mg/dL) 69 L (70-110) mg/dL Microbiology - Last 24 Hours (Table) 03/12/23 12:27 Blood Culture - Preliminary Blood Assessment and Plan Assessment: Acute hypoxemic respiratory failure secondary to acute gastric acid aspiration, following an EGD. Patient at high risk for developing acute respiratory distress syndrome. History of hiatal hernia, with surgery 3. History of hypertension. History of BPH. Status post recent left total knee arthroplasty, 02/27/2023. History of anxiety/depression. Plan: Plan dated 03/13/2023. The patient is transferred to the intensive care unit. That way, the patient can be monitored and managed more closely. The patient is apparently a DO NOT RESUSCITATE patient. The patient had a large-volume gastric acid aspiration, and developed acute hypoxemic respiratory failure. Chest x-ray shows bibasilar infiltrates, left greater than right. Additional recommendations and suggestions are forthcoming. Prognosis is certainly guarded. The patient's at high risk for developing acute respiratory distress syndrome. Plan dated 03/14/2023. The patient is seen in the intensive care unit, room 257. The patient was initially in the postop area, transferred to [facility], and then transferred to the intensive care unit. She's currently on AIRVO. Pro-calcitonin level was quite low at 0.04. The patient likely has gastric acid aspiration, and typically antibiotics are not recommended. They will be discontinued. Labs, x-rays, medications are reviewed. Prognosis is guarded. We will continue to follow the patient make recommendations along the way. The patient is on amiodarone at 0.5 mg/m, and norepinephrine at 4 mcg/m. No additional recommendations are made. Plan dated 03/15/2023. The patient's respiratory status is very poor. He continues on AIRVO at 45 L/m with an FiO2 of 82%. He is getting lactated Ringer's at 100 cc per hour. In addition, because he so lethargic, Xanax and Ativan are discontinued. Apparently according to the nurse, the family is considering a hospice referral. Labs, x-rays, and medications are reviewed. The patient's overall prognosis is poor. The amiodarone, and norepinephrine, are discontinued from his medication list. Plan dated 03/16/2023. The patient continues on medications including Cordarone, Dulcolax, Lasix, morphine, Narcan, Zofran, Protonix, and promethazine. Yesterday, the plan was to make the patient a comfort care patient, and/or make a referral to hospice. I'm not sure whether or not that has been done as yet. The patient's overall prognosis is poor. He is on 9 L high flow nasal cannula. Labs, x-rays, and medications are reviewed. Prognosis is poor. We will continue to follow for the time being. The patient is a DO NOT RESUSCITATE patient. Time with Patient: Less than 30
--- NOTE | 2023-03-16 16:10 | P.PN ---
Subjective Progress Note Date: 03/16/23 82 years old male with multiple medical problems including Hypertension, Osteoarthritis . Benign prostatic hypertrophy Patient was recently discharged from the hospital -03/01 for left knee osteoarthritis status post total left knee arthroplasty. From the patient went to [facility] rehab, he thinks for about 4 days, and was discharged from [facility] to home last Saturday but he states he did not get his prescription with him and he was not taking his medication for the last 3 days on the top of that he was deep vomiting, he said that he fell backwards on Saturday but without syncope, he said he lost his balance. He was not eating and drinking well and with recurrent vomiting over the last 3 days Patient complains from epigastric pain and tenderness which is mild, nonradiating. Aborted/10 in severity with pain medication this morning to 0/10. None specific. Patient had no bowel movement for the last 4 days. He denies any urinary symptoms, no headache dizziness weakness or numbness. he never smoked no alcohol or illicit drugs patient says that he had 3 surgery for his hiatal hernia, last one was in 1999 at [facility], he said that his surgeon left out of the [place] Currently blood pressure is 131/77, heart rate was 105. No fever Labs showing leukocytosis of 21.7, previously was 11.7 on 03/04/2023 hemoglobin 11.4. Platelet elevated. Sodium 131. Troponin is elevated at 0.04. Liver enzymes are unremarkable. Creatinine 1.1. CT of the abdomen and pelvis: Massively dilated distal esophagus which could be secondary to postsurgical obstruction versus achalasia. A large prostate related for PSA. An non-obstructing left 4 mm calculus EKG showing atrial fibrillation with a heart rate of 101. 03/14/2023 Patient is seen and evaluated at bedside in ICU; status post EGD which revealed dilated fluid-filled esophagus with large hiatal hernia and evidence of gastric volvulus; punctate ulcerations were noted on distal esophagus -- Patient was transferred to ICU post EGD with aspiration; chest x-ray revealed right basilar consolidation with left basilar patchy airspace opacities consistent with aspiration pneumonia -- Patient has an NG tube in and is recommended transferred to a tertiary care center for any further management of large hiatal hernia and dilated esophagus; she does have history of 3 prior hiatal hernia repair -- Patient and family have decided against transferred on any further care and is requesting consultation with hospice care for comfort care measures 03/15/2023 Patient is seen and evaluated with daughter at bedside; all above. Questions were answered to their satisfaction Patient was transferred to the intensive care unit following an EGD, with a large-volume aspiration; he didn't on AIRVO, at 45 L/m with an FiO2 of 82%. He is getting lactated Ringer's at 100 mL an hour. He's very somnolent and lethargic. Xanax Ativan are discontinued. In addition, norepinephrine and Cordarone or discontinued from the medical list. According to the nurse, the family is considering possible hospice referral. The patient's overall prognosis is very poor. He is a DO NOT RESUSCITATE patient. No new labs today. -- Patient to be admitted to hospice versus comfort care once family is making patient 03/16/2023 Patient seen and evaluated at bedside in ICU; resting comfortably; doesn't seem to be in any distress; a friend is at bedside; no family members present; kvng snell was discussed with RN; family has decided to proceed with hospice care - Patient will be moved out of ICU Objective - Vital Signs Vital signs: Vital Signs Temp 98.2 F 03/16/23 12:00 Pulse 98 03/16/23 12:00 Resp 27 H 03/16/23 12:00 BP 165/93 03/16/23 12:00 Pulse Ox 100 03/16/23 12:00 FiO2 35 03/16/23 06:00 Intake & Output 03/15/23 03/16/23 03/16/23 18:59 06:59 18:59 Intake Total 680 190 270 Output Total 610 855 375 Balance 70 -665 -105 Weight 84.1 kg 84.1 kg Intake: IV 680 130 50 Invasive Line 1 20 LR @ 100 600 Lactated Ringers 1,000 ml 60 130 50 @ 10 mls/hr IV .Q24H [facility] Rx#:[id number] Oral 60 220 Output: Urine 610 855 375 Other: Voiding Method Indwelling Catheter Indwelling Catheter Indwelling Catheter - Exam GENERAL: The patient is alert and oriented x3, not in any acute distress. Well developed, well nourished. HEENT: Pupils are round and equally reacting to light. EOMI. No scleral icterus. No conjunctival pallor. Normocephalic, atraumatic. No pharyngeal erythema. No thyromegaly. CARDIOVASCULAR: S1 and S2 present. No murmurs, rubs, or gallops. PULMONARY: Chest is clear to auscultation, no wheezing or crackles. ABDOMEN: Soft, nontender, nondistended, normoactive bowel sounds. No palpable organomegaly. MUSCULOSKELETAL: No joint swelling or deformity. Left knee surgical incision seen EXTREMITIES: No cyanosis, clubbing, or pedal edema. NEUROLOGICAL: Gross neurological examination did not reveal any focal deficits. SKIN: No rashes. - Labs CBC & Chem 7: 03/14/23 04:34 03/14/23 04:34 Labs: Abnormal Lab Results - Last 24 Hours (Table) 03/16/23 Range/Units 07:11 POC Glucose (mg/dL) 69 L (70-110) mg/dL Microbiology - Last 24 Hours (Table) 03/12/23 12:27 Blood Culture - Preliminary Blood Assessment and Plan Assessment: New-onset atrial fibrillation with elevated troponin Massively dilated distal esophagus which could be secondary to postsurgical obstruction versus achalasia. Hypertension, Patient was hypotensive on admission Possible sepsis with leukocytosis and tachycardia Recent left knee arthroplasty History of benign prostatic hypertrophy with large prostate. 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 Continue same treatment. Continue with symptomatic treatment. Resume home medication. Monitor labs and vitals. DVT and GI prophylaxis. Further recommendations as per clinical course of the patient
[2023-03-16 16:33] VITALS: RESP 20
[2023-03-17] MEDS: MORPHINE SULFATE 4 MG/ML SYRINGE IV PRN (00:44)
[2023-03-17] MEDS: LACTATED RINGERS 1,000 ML IV SCH (02:10)
[2023-03-17] MEDS: AMIODARONE 200 MG TAB PO SCH (07:30)
[2023-03-17] MEDS: PANTOPRAZOLE 40 MG/10 ML VIAL IVP SCH (07:34)
[2023-03-17] MEDS: bisacodyL 10 MG SUPP RECTAL SCH (07:34)
[2023-03-17 07:37] VITALS: BP 168/93; PULSE 106; TEMP 98.8
--- NOTE | 2023-03-17 08:29 | P.PN ---
Subjective Progress Note Date: 03/17/23 Principal diagnosis: Persistent atrial fibrillation The patient is an 82-year-old gentleman with no significant past medical history who was admitted to the hospital with gastrointestinal bleeding on we consulted to see the patient for atrial fibrillation with rapid ventricular response which is known to him. He underwent an echo which revealed normal LV systolic function was no significant valvular abnormalities March 142022 The patient was seen and evaluated this morning. He was transferred to the intensive care unit because he is. Yesterday. He continues to be an issue fibrillation with overall controlled heart rate. Currently he is on amiodarone IV which is going to stop and switch him to amiodarone by mouth. He currently on any anticoagulation because of GI bleeding. That is in workup right now. March 152022 The patient was seen and evaluated this morning. He continues to be in atrial fibrillation with controlled heart rate. He is not on any anticoagulation at this point because of the GI bleeding. Overall he is stable hemodynamically. From a cardiovascular standpoint of view, we will continue current medical regimen. March 162022 The patient was seen and evaluated this morning. He is in atrial fibrillation with controlled heart rate. History of hypoxic requiring 3 L of oxygen. On examination he does have bilateral upper and lower extremity edema and diminished breathing sounds bilaterally. The pressure has been stable. He is not on anticoagulation in the light of gastrointestinal bleeding. March 172022 The patient was seen and evaluated this morning. He was transferred out of the intensive care unit yesterday. The patient continues to be hypoxic on oxygen. He continues to be in atrial fibrillation with overall controlled heart rate and not on any anticoagulation because of history of gastrointestinal bleeding. The family is going to meet with the hospice team later on today. He might potentially go into hospice but he still full code as of now. The examination is remarkable for irregular rhythm with overall controlled heart rates. Assessment Gastrointestinal bleeding Anemia secondary to gastrointestinal bleeding Persistent atrial fibrillation Multiple comorbid conditions Aspiration pneumonia Plan Continue the current medical regimen Continue the current dose of amiodarone orally Objective - Vital Signs Vital signs: Vital Signs Temp 98.8 F 03/17/23 07:12 Pulse 106 H 03/17/23 07:12 Resp 20 03/17/23 07:12 BP 168/93 03/17/23 07:12 Pulse Ox 90 L 03/17/23 07:12 FiO2 35 03/16/23 06:00 Intake & Output 03/16/23 03/17/23 03/17/23 18:59 06:59 18:59 Intake Total 300 Output Total 1375 800 Balance -1075 -800 Weight 84.1 kg Intake: IV 80 Lactated Ringers 1,000 ml 80 @ 10 mls/hr IV .Q24H [facility] Rx#:[id number] Oral 220 Output: Urine 1375 800 Other: Voiding Method Indwelling Catheter Incontinent External Catheter - Labs CBC & Chem 7: 03/14/23 04:34 03/14/23 04:34 Labs: Microbiology - Last 24 Hours (Table) 03/12/23 12:27 Blood Culture - Preliminary Blood
--- NOTE | 2023-03-17 11:38 | P.PN ---
Subjective Progress Note Date: 03/17/23 82-year-old male who presented to the emergency department on March 11, complaining of difficulty in breathing, and weakness. The patient had recent knee surgery in February. He was on his left knee. I believe it was the left knee replacement. He subsequently was discharged to subacute rehab, and discharged from there, 3 or 4 days prior to his admission to the emergency room on March 11. Apparently when the visiting nurse checked him, the patient had a low blood pressure, and, was not really eating or drinking very much. For that reason, he was directed back into the emergency room. The patient has a history of hypertension, DJD, hiatal hernia with previous surgeries 3 of his hiatal hernia, recent left knee surgery, and prostate disease. The patient also has a history of anxiety and depression, and is a lifelong nonsmoker. Today, the patient was undergoing an EGD, and apparently had a large-volume aspiration. The patient was taken to postoperative recovery area, and then transferred up to the third floor, and we were asked to see him. The patient was on 6 L, and his saturations are only in the low to mid 80s. I asked him to place a nonrebreather on the patient, and, transfer him to the intensive care unit for further monitoring and management. Laboratory data includes a white count of 14.5, hemoglobin 10.1, hematocrit 31.7, and a platelet count of 522,000. Sodium 135, potassium 3.5, chlorides 102, CO2 29, BUN 45, creatinine 0.77. Glucose was 137. Albumin 2.4. The patient's chest x-ray, done today, after the procedure, reveals bibasilar patchy infiltrates, left greater than right. This likely represents aspiration. Progress note dated 03/14/2023. The patient was transferred to the intensive care unit, because of a large- volume aspiration following EGD. The patient is seen today in room 257, intensive care unit. The patient was placed on AIRVO with settings of 45 L/m, with an FiO2 of 82%. The patient's getting lactated Ringer's at 100 mL an hour, amiodarone at 0.5 mg/m, and norepinephrine for micrograms per minute. Clinically, the patient looks much better today than he did yesterday. White count 17.9, hemoglobin 9.8, hematocrit 30.3, and platelet count was normal. Sodium 136, potassium 3.6, chlorides 108, CO2 22, BUN 43, and creatinine 0.81. Chest x-ray shows a right basilar consolidation, consistent with aspiration. There is a small left-sided pleural effusion, and some atelectasis or infiltrate at the left lung base. Progress note dated 03/15/2023. 82-year-old gentleman, no code, transferred to the intensive care unit following an EGD, with a large-volume aspiration. The patient is currently seen today in room 257. He continues on AIRVO, at 45 L/m with an FiO2 of 82%. He is getting lactated Ringer's at 100 mL an hour. He's very somnolent and lethargic. Xanax Ativan are discontinued. In addition, norepinephrine and Cordarone or discontinued from the medical list. According to the nurse, the family is considering possible hospice referral. The patient's overall prognosis is very poor. He is a DO NOT RESUSCITATE patient. No new labs today. Progress note dated 03/16/2023. 82 -year-old male, no code, transferred to the intensive care unit, following an EGD, at which time, he had a large-volume aspiration. The patient is currently seen today in room 257. He is currently on 9 L high flow oxygen, and saline at 10 mL an hour. Yesterday, the family was talking about hospice care. No new labs today. No new x-rays today. The patient is seen today 03/17/2023 in follow-up on the regular medical floor. He is currently resting fairly comfortably in bed. Arousable. Easily. He is maintaining O2 saturations in the 90s on 4 L/m per nasal cannula. He has lactated Ringer's at 10 MLS per hour. Blood cultures revealed no growth. Plan is for a hospice meeting with the family today. Objective - Vital Signs Vital signs: Vital Signs Temp 98.8 F 03/17/23 07:12 Pulse 106 H 03/17/23 07:12 Resp 20 03/17/23 07:12 BP 168/93 03/17/23 07:12 Pulse Ox 98 03/17/23 08:51 FiO2 35 03/16/23 06:00 Intake & Output 03/16/23 03/17/23 03/17/23 18:59 06:59 18:59 Intake Total 300 Output Total 1375 800 Balance -1075 -800 Weight 84.1 kg Intake: IV 80 Lactated Ringers 1,000 ml 80 @ 10 mls/hr IV .Q24H [facility] Rx#:[id number] Oral 220 Output: Urine 1375 800 Other: Voiding Method Indwelling Catheter Incontinent Incontinent External Catheter External Catheter - Exam Arousable frail 82-year-old male patient in mild respiratory distress. Currently on 4 L high flow oxygen nasal cannula. HEENT examination is grossly unremarkable. Neck supple. Full range of motion. No adenopathy thyromegaly or neck vein distention. Cardiovascular examination reveals regular rhythm rate. S1-S2 normal. No S3 or S4. No discernible murmur noted. Heart sounds are distant. Lungs reveal coarse bilateral breath sounds. Breath sounds are diminished throughout. Most abnormal sounds are in the right base. No crackles. Abdomen soft bowel sounds are heard. No masses or tenderness. Extremities are intact. No cyanosis clubbing or edema. Skin is without rash or lesion. Neurologic examination reveals a very lethargic/somnolent patient. - Labs CBC & Chem 7: 03/14/23 04:34 03/14/23 04:34 Labs: Microbiology - Last 24 Hours (Table) 03/12/23 12:27 Blood Culture - Preliminary Blood Assessment and Plan Assessment: Acute hypoxemic respiratory failure secondary to acute gastric acid aspiration, following an EGD. Patient at high risk for developing acute respiratory distress syndrome. History of hiatal hernia, with surgery 3. History of hypertension. History of BPH. Status post recent left total knee arthroplasty, 02/27/2023. History of anxiety/depression. Plan: The patient was seen and evaluated Medications reviewed Plan is for possible hospice placement today We will see as needed I have personally seen and examined the patient, performed the documentation and the assessment and plan as written. Number of minutes spent on the visit: 10.
--- NOTE | 2023-03-18 19:51 | P.DS ---
Providers Date of admission: 03/11/23 22:08 Expected date of discharge: 03/17/23 Attending physician: Betty Quiles Consults: 03/11/23 22:08 Consult Physician Routine Consulting Provider: Peri Chin Consult Reason/Comments: dysphagia Do you want consulting provider notified?: Yes Consult Physician Routine Consulting Provider: Lei Chin Consult Reason/Comments: new onset afib Do you want consulting provider notified?: Yes 03/12/23 09:25 Consult Physician Routine Consulting Provider: Adal Corona Consult Reason/Comments: Dilated esophagus, history of hiatal hernia 3 Do you want consulting provider notified?: Yes 03/13/23 14:33 Consult Physician Routine Consulting Provider: Behzad Hoffman Consult Reason/Comments: ICU management Do you want consulting provider notified?: Yes Primary care physician: Samir Bassett [facility] Course: Final diagnosis New-onset atrial fibrillation with elevated troponin Massively dilated distal esophagus which could be secondary to postsurgical obstruction versus achalasia. Large hiatal hernia Hypertension, Patient was hypotensive on admission Acute Blood loss anemia secondary to GI bleed Possible sepsis with leukocytosis and tachycardia likely secondary to aspiration pneumonia Recent left knee arthroplasty History of benign prostatic hypertrophy with large prostate. 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 Patient met inpatient criteria. Total time taken is greater than 35 minutes. Hospital course 82 years old male with multiple medical problems including Hypertension, Osteoarthritis . Benign prostatic hypertrophy Patient was recently discharged from the hospital -03/01 for left knee osteoarthritis status post total left knee arthroplasty. From the patient went to [facility] rehab, he thinks for about 4 days, and was discharged from [facility] to home last Saturday but he states he did not get his prescription with him and he was not taking his medication for the last 3 days on the top of that he was deep vomiting, he said that he fell backwards on Saturday but without syncope, he said he lost his balance. He was not eating and drinking well and with recurrent vomiting over the last 3 days Patient complains from epigastric pain and tenderness which is mild, nonradiating. Aborted/10 in severity with pain medication this morning to 0/10. None specific. Patient had no bowel movement for the last 4 days. He denies any urinary symptoms, no headache dizziness weakness or numbness. he never smoked no alcohol or illicit drugs patient says that he had 3 surgery for his hiatal hernia, last one was in 1999 at [facility], he said that his surgeon left out of the [place] Currently blood pressure is 131/77, heart rate was 105. No fever Labs showing leukocytosis of 21.7, previously was 11.7 on 03/04/2023 hemoglobin 11.4. Platelet elevated. Sodium 131. Troponin is elevated at 0.04. Liver enzymes are unremarkable. Creatinine 1.1. CT of the abdomen and pelvis: Massively dilated distal esophagus which could be secondary to postsurgical obstruction versus achalasia. A large prostate related for PSA. An non-obstructing left 4 mm calculus EKG showing atrial fibrillation with a heart rate of 101. 03/14/2023 Patient is seen and evaluated at bedside in ICU; status post EGD which revealed dilated fluid-filled esophagus with large hiatal hernia and evidence of gastric volvulus; punctate ulcerations were noted on distal esophagus -- Patient was transferred to ICU post EGD with aspiration; chest x-ray revealed right basilar consolidation with left basilar patchy airspace opacities consistent with aspiration pneumonia -- Patient has an NG tube in and is recommended transferred to a tertiary care center for any further management of large hiatal hernia and dilated esophagus; she does have history of 3 prior hiatal hernia repair -- Patient and family have decided against transferred on any further care and is requesting consultation with hospice care for comfort care measures 03/15/2023 Patient is seen and evaluated with daughter at bedside; all above. Questions were answered to their satisfaction Patient was transferred to the intensive care unit following an EGD, with a large-volume aspiration; he didn't on AIRVO, at 45 L/m with an FiO2 of 82%. He is getting lactated Ringer's at 100 mL an hour. He's very somnolent and lethargic. Xanax Ativan are discontinued. In addition, norepinephrine and Cordarone or discontinued from the medical list. According to the nurse, the family is considering possible hospice referral. The patient's overall prognosis is very poor. He is a DO NOT RESUSCITATE patient. No new labs today. -- Patient to be admitted to hospice versus comfort care once family is making patient 03/16/2023 Patient seen and evaluated at bedside in ICU; resting comfortably; doesn't seem to be in any distress; a friend is at bedside; no family members present; patient was discussed with RN; family has decided to proceed with hospice care - Patient will be moved out of ICU 03/17/2023 Patient is being transitioned to [facility] with comfort measures per family and patient request. We will continue to follow with [facility] in respect comfort measure orders only. The impression and plan of care has been dictated by Shayla Tan, Nurse Practitioner as directed. Dr. Ike MD I have performed a history and examination and MDM of this patient, discussed the same with the dictator, and agree with the dictator's assessment and plan as written ,documented as a scribe. Based on total visit time, I have performed more than 50% of the visit. Patient Condition at Discharge: Fair Plan - Discharge Summary Discharge Rx Participant: No New Discharge Prescriptions: No Action carvediloL [Coreg] 6.25 mg PO BID Citalopram Hydrobromide [CeleXA] 20 mg PO DAILY lisinopriL [Zestril] 10 mg PO DAILY Tamsulosin HCl [Flomax] 0.4 mg PO DAILY Furosemide [Lasix] 20 mg PO WE Discharge Medication List Citalopram Hydrobromide [CeleXA] 20 mg PO DAILY 02/26/23 [History] Furosemide [Lasix] 20 mg PO WE 02/26/23 [History] Tamsulosin HCl [Flomax] 0.4 mg PO DAILY 02/26/23 [History] carvediloL [Coreg] 6.25 mg PO BID 02/26/23 [History] lisinopriL [Zestril] 10 mg PO DAILY 02/26/23 [History] Follow up Appointment(s)/Referral(s): Samir Bassett MD [Primary Care Provider] - 1-2 days Discharge Disposition: STILL PT- FOR INTERIM BILLING
== END 2023-03-17 10:53 | disposition hospice, inpatient (51) | DRG 380 ==
LOC: EC 17:52 → 3SCARD 22:08 → 2SICU 03-13 15:36 → 4SSUR 03-16 16:06
PROVIDERS: ADMIT Internal Medicine; ATTEND Internal Medicine
PROC: 0DB38ZX Excision of Lower Esophagus, Via Natural or Artificial Opening Endoscopic, Diagnostic (ICD-10-PCS; 2023-03-13)
PROC: 0D9670Z Drainage of Stomach with Drainage Device, Via Natural or Artificial Opening (ICD-10-PCS; principal; 2023-03-13 08:15)
PROC: 3E033XZ Introduction of Vasopressor into Peripheral Vein, Percutaneous Approach (ICD-10-PCS; 2023-03-14)
DX: K22.11 Ulcer of esophagus with bleeding (principal); J69.0 Pneumonitis due to inhalation of food and vomit; J96.01 Acute respiratory failure with hypoxia; E87.1 Hypo-osmolality and hyponatremia; D62 Acute posthemorrhagic anemia; I48.19 Other persistent atrial fibrillation; K44.0 Diaphragmatic hernia with obstruction, without gangrene; I27.20 Pulmonary hypertension, unspecified; K21.01 Gastro-esophageal reflux disease with esophagitis, with bleeding; R13.19 Other dysphagia; T17.918A Gastric contents in respiratory tract, part unspecified causing other injury, initial encounter; I95.9 Hypotension, unspecified; K76.89 Other specified diseases of liver; I10 Essential (primary) hypertension; I34.0 Nonrheumatic mitral (valve) insufficiency; F32.A Depression, unspecified; Z66 Do not resuscitate; Z91.138 Patient's unintentional underdosing of medication regimen for other reason; Z51.5 Encounter for palliative care; M17.12 Unilateral primary osteoarthritis, left knee; T50.906A Underdosing of unspecified drugs, medicaments and biological substances, initial encounter; N40.0 Benign prostatic hyperplasia without lower urinary tract symptoms; K31.89 Other diseases of stomach and duodenum; K44.9 Diaphragmatic hernia without obstruction or gangrene; K59.00 Constipation, unspecified; R47.81 Slurred speech; R60.0 Localized edema; N20.0 Calculus of kidney; F41.9 Anxiety disorder, unspecified; W01.0XXA Fall on same level from slipping, tripping and stumbling without subsequent striking against object, initial encounter; Z96.652 Presence of left artificial knee joint; Z88.2 Allergy status to sulfonamides; Z88.0 Allergy status to penicillin; Z79.899 Other long term (current) drug therapy; Y92.009 Unspecified place in unspecified non-institutional (private) residence as the place of occurrence of the external cause
CPT/HCPCS: 36415; 43239; 71045; 74177; 80048; 80053; 81003; 82271; 82533; 83605; 83735; 84145; 84484; 85025; 85610; 85730; 87040; 88305; 88312; 93005; 93306; 94760; 96361; 96365; 96366; 96368; 96375; 96376; 99291

== ENCOUNTER 2023-03-17 10:36 | Inpatient (IN) | payer MEDICAID ==
[2023-03-17] MEDS ORDERED: ONDANSETRON 4 MG/2 ML VIAL IVP PRN (10:47)
[2023-03-17] MEDS ORDERED: MORPHINE SULFATE 2 MG/ML SYRINGE IV PRN (10:47)
[2023-03-17] MEDS ORDERED: SCOPOLAMINE 1 MG/72 HR PATCH TRANSDERM SCH (11:00)
[2023-03-17] MEDS: MORPHINE SULFATE (100 MG/2 ML) 100 MG in SODIUM CHLORIDE 0.9% 100 ML IV SCH (11:48)
[2023-03-17] MEDS: ATROPINE OPHTH SOLN 1% 5ML BTL SUBLINGUAL PRN (13:30)
[2023-03-17] MEDS: GLYCOPYRROLATE 0.2 MG/ML 2 ML VIAL IVP PRN (15:13)
[2023-03-17] MEDS: LORazepam 2 MG/ML INJ IV PRN (20:29)
[2023-03-18] MEDS: LORazepam 2 MG/ML INJ IV PRN (00:33)
[2023-03-18] MEDS: ATROPINE OPHTH SOLN 1% 5ML BTL SUBLINGUAL PRN (00:35)
[2023-03-18] MEDS: GLYCOPYRROLATE 0.2 MG/ML 2 ML VIAL IVP PRN ×2 (00:44→06:45)
[2023-03-18] MEDS: MORPHINE SULFATE (100 MG/2 ML) 100 MG in SODIUM CHLORIDE 0.9% 100 ML IV SCH (00:54)
[2023-03-18 07:10] VITALS: PULSE 62; RESP 14
--- NOTE | 2023-03-18 20:04 | P.HPIM ---
History of Present Illness H&P Date: 03/17/23 This is a 82-year-old male who is status post EGD and was found to have dilated fluid-filled esophagus with large hiatal hernia and evidence of gastric volvulus. Punctate-like ulcerations noted in the dilated distal esophagus. Patient required intubation and was extubated and surgery was evaluating the patient recommending tertiary transfer treatment center although patient and family refusing any further treatment or surgeries and denying the transfer and considering possible hospice. Patient did not want any further surgeries. Patient had significant shortness of breath and respiratory failure and being treated for aspiration pneumonia. Patient with significant comorbidities agre eable to sign on with hospice and has met inpatient criteria. Patient will be initiated on comfort care measures including morphine drip. Review Of Systems: Constitutional: No fever, no chills, no night sweats. No weight change. No weakness, fatigue or lethargy. No daytime sleepiness. EENT: No headache. No blurred vision or double vision, no loss of vision. No loss of Hearing, no ringing in the ears, no dizziness. No nasal drainage or congestion. No epistaxis. No sore throat. Lungs: Reports shortness of breath, cough, wheezing. Cardiovascular: No chest pain, no lower extremity edema. No palpitations. No paroxysmal nocturnal dyspnea. No orthopnea. No lightheadedness or dizziness. No syncopal episodes. Abdominal: No abdominal pain. No nausea, vomiting. No diarrhea. No const ipation. No bloody or tarry stools.. No loss of appetite. Genitourinary: No dysuria, increased frequency, urgency. No urinary retention. Musculoskeletal: No myalgias. No muscle weakness, no gait dysfunction, no frequent falls. No back pain. No neck pain. Integumentary: No wounds, no lesions. No rash or pruritus. No unusual bruising. No change in hair or nails. Neurologic: No aphasia. No facial droop. No change in mentation. No head injury. No headache. No paralysis. No paresthesia. Psychiatric: No depression. No anxiety. No mood swings. Endocrine: No abnormal blood sugars. No weight change. No excessive sweating or thirst. No cold intolerance. PHYSICAL EXAMINATION: GENERAL: The patient is alert and oriented x3, Well developed, well nourished. HEENT: Pupils are round and equally reacting to light. EOMI. no scleral icterus. No conjunctival pallor. Normocephalic, atraumatic. No pharyngeal erythema. No thyromegaly. CARDIOVASCULAR: S1 and S2 muffled PULMONARY: diminished breath sounds bilaterally with scattered rhonchi noted. ABDOMEN: soft. Nontender on exam. obese. non-distended, normoactive bowel sounds. No palpable organomegaly. MUSCULOSKELETAL: No joint swelling or deformity. EXTREMITIES: No cyanosis, clubbing, or pedal edema. NEUROLOGICAL: Gross neurological examination did not reveal any focal deficits. Diffuse weakness SKIN: No rashes. Assessment: Aspiration pneumonia with sepsis, present on admission Large hiatal hernia New-onset atrial fibrillation with elevated troponin Massively dilated distal esophagus which could be secondary to postsurgical obstruction versus achalasia. Hypertension, Patient was hypotensive on admission Possible sepsis with leukocytosis and tachycardia Recent left knee arthroplasty History of benign prostatic hypertrophy with large prostate. 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 Patient will be initiated on morphine drip and will be followed closely. Continue with comfort care protocol. Overall poor prognosis. The impression and plan of care has been dictated by Shayla Tan, nurse practitioner as directed. Dr. Ike MD I have performed a history and examination and MDM of this patient, discussed the same with the dictator, and agree with the dictator's assessment and plan as written ,documented as a scribe. Based on total visit time, I have performed more than 50% of the visit. Any additional findings or plans will be noted. Past Medical History Past Medical History: Hypertension, Osteoarthritis (OA), Prostate Disorder, Skin Disorder Additional Past Medical History / Comment(s): hx. hiatal hernia-has had 3 surgeries for, abrasion on left arm above wrist, woke up w/it-has bandage & has been cleaning, states no drainage of sx. of infection, ankle swelling History of Any Multi-Drug Resistant Organisms: None Reported Past Surgical History: Hernia Repair, Orthopedic Surgery Additional Past Surgical History / Comment(s): repair of hiatal hernia x3, kuldip. cataracts removed, Left knee replacement 02/27/23. Past Anesthesia/Blood Transfusion Reactions: No Reported Reaction Past Psychological History: Anxiety, Depression Smoking Status: Never smoker Past Alcohol Use History: Daily Additional Past Alcohol Use History / Comment(s): small glass of wine mixed w/7up daily but none since Saturday Past Drug Use History: None Reported - Past Family History Mother Family Medical History: No Reported History Medications and Allergies Home Medications Medication Instructions Recorded Confirmed Type Citalopram Hydrobromide [CeleXA] 20 mg PO DAILY 02/26/23 03/17/23 History Furosemide [Lasix] 20 mg PO WE 02/26/23 03/17/23 History Tamsulosin HCl [Flomax] 0.4 mg PO DAILY 02/26/23 03/17/23 History carvediloL [Coreg] 6.25 mg PO BID 02/26/23 03/17/23 History lisinopriL [Zestril] 10 mg PO DAILY 02/26/23 03/17/23 History Allergies Allergy/AdvReac Type Severity Reaction Status Date / Time Penicillins Allergy swelling,redness, Verified 03/17/23 15:08 itching Sulfa (Sulfonamide Allergy Unknown Verified 03/17/23 15:08 Antibiotics) Physical Exam Vitals: Vital Signs Pulse Resp Pulse Ox 03/18/23 06:54 62 14 89 L 03/17/23 20:00 16 Intake and Output 03/18/23 03/18/23 03/18/23 06:59 14:59 22:59 Intake Total 29.8 Balance 29.8 Intake: Intake, IV Titration 29.8 Amount Morphine Sulfate (100 mg/ 29.8 2 ml) 100 mg In Sodium Chloride 0.9% 100 ml @ 1 MG/HR 1.02 mls/hr IV . Q24H [facility] Rx#:[id number]
--- NOTE | 2023-03-18 20:09 | P.DS ---
Providers Date of admission: 03/17/23 10:55 Expected date of discharge: 03/18/23 Attending physician: Lisandra Ramires MD Primary care physician: [facility] Course: Preliminary cause of Aspiration pneumonia with sepsis, present on admission Final diagnosis Aspiration pneumonia with sepsis, present on admission Large hiatal hernia New-onset atrial fibrillation with elevated troponin Massively dilated distal esophagus which could be secondary to postsurgical obstruction versus achalasia. Hypertension, Patient was hypotensive on admission Possible sepsis with leukocytosis and tachycardia Recent left knee arthroplasty History of benign prostatic hypertrophy with large prostate. 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 According to nursing documentation, time of was 0745 on 03/18/2023. We present and patient was on [facility] hospice services. Total time taken is greater than 35 minutes. Hospital course This is a 82-year-old male who was recently admitted with aspiration during EGD requiring intubation and found to have large hernia with a massively dilated distal esophagus and profound bradycardia and hypotension and was in ICU. Patient with significant comorbidities and declining any further care and treatment met with hospice services. Patient and family were agreeable and met inpatient criteria and started on morphine drip. Patient was continued on comfort measures only with family present. Please refer to other dictations and consultation notes for further HPI. Overall prognosis is extremely poor and guarded. The impression and plan of care has been dictated by Shayla Tan, Nurse Practitioner as directed. Dr. Ike MD I have performed a history and examination and MDM of this patient, discussed the same with the dictator, and agree with the dictator's assessment and plan as written ,documented as a scribe. Based on total visit time, I have performed more than 50% of the visit. Patient Condition at Discharge: Poor Plan - Discharge Summary New Discharge Prescriptions: No Action carvediloL [Coreg] 6.25 mg PO BID Citalopram Hydrobromide [CeleXA] 20 mg PO DAILY lisinopriL [Zestril] 10 mg PO DAILY Tamsulosin HCl [Flomax] 0.4 mg PO DAILY Furosemide [Lasix] 20 mg PO WE Discharge Medication List Citalopram Hydrobromide [CeleXA] 20 mg PO DAILY 02/26/23 [History] Furosemide [Lasix] 20 mg PO WE 02/26/23 [History] Tamsulosin HCl [Flomax] 0.4 mg PO DAILY 02/26/23 [History] carvediloL [Coreg] 6.25 mg PO BID 02/26/23 [History] lisinopriL [Zestril] 10 mg PO DAILY 02/26/23 [History] Discharge Disposition: - Preliminary Cause of Preliminary Cause of : aspiration pneumonia
== END 2023-03-18 07:45 | disposition expired | DRG 951 ==
LOC: 4SSUR 10:55
PROVIDERS: ADMIT Internal Medicine; ATTEND Internal Medicine
DX: Z51.5 Encounter for palliative care (principal); A41.9 Sepsis, unspecified organism; J69.0 Pneumonitis due to inhalation of food and vomit; J96.90 Respiratory failure, unspecified, unspecified whether with hypoxia or hypercapnia; K44.9 Diaphragmatic hernia without obstruction or gangrene; I48.91 Unspecified atrial fibrillation; I10 Essential (primary) hypertension; I95.9 Hypotension, unspecified; Z96.652 Presence of left artificial knee joint; Z66 Do not resuscitate; N40.0 Benign prostatic hyperplasia without lower urinary tract symptoms; K31.89 Other diseases of stomach and duodenum; K76.89 Other specified diseases of liver; N20.9 Urinary calculus, unspecified; F32.A Depression, unspecified; F41.9 Anxiety disorder, unspecified; Z79.899 Other long term (current) drug therapy; Z88.0 Allergy status to penicillin; Z88.2 Allergy status to sulfonamides